=== PATIENT | female | born 1950 | race Caucasian/White ===

== ENCOUNTER → 2017-12-12 07:40 | Outpatient (CLI) | payer MEDICARE, SELFPAY ==
[2017-12-12 10:40] LABS: Absolute Lymphocyte Count 1.24 X10^3/ul (0.83-4.51); Absolute Neutrophil Count 2.3 X10^3/uL (2.0-7.7); Basophil# 0.01 X10^3/uL; Basophil% 0.2 % (0-1); Eosinophil# 0.15 X10^3/uL; Eosinophils% 3.5 % (0-5); Hemoglobin 13.4 g/dl (12.0-15.0); Lymphocyte # 1.24 X10^3/ul (4.0); Lymphocyte % 28.8 % (19-41); Mean Corp Hgb Conc 33.5 g/gl (32-36); Mean Corpuscular Hgb 30.2 pg (27.0-32.0); Mean Corpuscular Volume 90.1 fL (81-99); Mean Platelet Vol. 10.1 fl (6.2-12.0); Monocyte# 0.57 X10^3/uL; Monocyte% 13.3 % (0-10); Neutrophil # 2.33 X10^3/uL (2.7-7.7); Neutrophil % 54.2 % (47-70); Platelet Count 206 K/mm3 (150-450); RBC Distribution Width CV 12.7 % (11.6-14.6); RBC Distribution Width SD 41.6 fl (35.1-43.9); Red Blood Count 4.44 M/mm3 (4.2-5.4); White Blood Count 4.3 K/mm3 (4.4-11.0)
[2017-12-12 10:52] LABS: ALB/GLOB Ratio 1.2 RATIO (0.9-2.4); AST(SGOT) 22 U/L (15-37); Alanine Aminotransfer ALT/SGPT 30 U/L (13-56); Albumin, Serum 3.9 g/dL (3.2-5.0); Alkaline Phosphatase 99 U/L (45-117); Anion Gap 3 (5-15); BUN 14 mg/dL (7-18); BUN/Creat Ratio 19.6 RATIO (10-20); Calcium,Total 8.4 mg/dL (8.5-10.1); Chloride 107 mmol/L (98-107); Creatinine, Serum 0.72 mg/dL (0.55-1.02); EST Glomerular Filtration Rate 87 mL/min (>60); Est Glom Filt Rate - Afr Amer 105 mL/min (>60); Globulin 3.3 g/dL (2.2-4.2); Glucose 81 mg/dL (74-106); Potassium 4.1 mmol/L (3.5-5.1); Protein, Total 7.2 g/dL (6.4-8.2); Sodium Level 142 mmol/L (136-145)
[2017-12-12 10:54] LABS: POSITIVE COUNT NO; POSITIVE DIFFERENTIAL NO; POSITIVE MORPHOLOGY NO
== END ==
PROVIDERS: Family Provider Nurse Practitioner Family; PCP Nurse Practitioner Family; Visit Provider Internal Medicine Rheumatology
DX: M06.4 Inflammatory polyarthropathy (principal); I10 Essential (primary) hypertension; I34.1 Nonrheumatic mitral (valve) prolapse; E78.5 Hyperlipidemia, unspecified; K44.9 Diaphragmatic hernia without obstruction or gangrene
CPT/HCPCS: 36415; 80053; 85025

== ENCOUNTER → 2018-03-13 10:32 | Outpatient (CLI) | payer MEDICARE, SELFPAY ==
--- NOTE | 2018-03-13 10:32 | DT_ITS ---
This patient was seen during an EMR downtime March 13, 2018 - March 20, 2018. This patient may have a combination of paper and electronic documentation or all paper documentation. All documentation is viewable within the e-chart portion of [facility] for each patient visit.
[2018-03-17 22:22] LABS: Hematocrit 37.9 % (37-47); Hemoglobin 12.6 g/dl (12.0-15.0); Mean Corp Hgb Conc 33.2 g/gl (32-36); Mean Corpuscular Hgb 30.2 pg (27.0-32.0); Mean Corpuscular Volume 90.9 fL (81-99); Mean Platelet Vol. 10.3 fl (6.2-12.0); POSITIVE COUNT NO; POSITIVE DIFFERENTIAL NO; POSITIVE MORPHOLOGY NO; Platelet Count 205 K/mm3 (150-450); RBC Distribution Width CV 12.9 % (11.6-14.6); RBC Distribution Width SD 41.4 fl (35.1-43.9); Red Blood Count 4.17 M/mm3 (4.2-5.4); White Blood Count 4.6 K/mm3 (4.4-11.0)
[2018-03-17 22:23] LABS: Absolute Lymphocyte Count 1.39 X10^3/ul (0.83-4.51); Absolute Neutrophil Count 2.7 X10^3/uL (2.0-7.7); Basophil# 0.01 X10^3/uL; Basophil% 0.2 % (0-1); Eosinophil# 0.11 X10^3/uL; Eosinophils% 2.4 % (0-5); Lymphocyte # 1.39 X10^3/ul (4.0); Lymphocyte % 30.3 % (19-41); Monocyte# 0.38 X10^3/uL; Monocyte% 8.3 % (0-10); Neutrophil # 2.69 X10^3/uL (2.7-7.7); Neutrophil % 58.6 % (47-70)
[2018-03-17 22:32] LABS: BUN 14 mg/dL (7-18); BUN/Creat Ratio 18.7 RATIO (10-20); Creatinine, Serum 0.75 mg/dL (0.55-1.02); EST Glomerular Filtration Rate 82 mL/min (>60); Est Glom Filt Rate - Afr Amer 99 mL/min (>60); Glucose 113 mg/dL (74-106)
[2018-03-17 22:33] LABS: ALB/GLOB Ratio 1.2 RATIO (0.9-2.4); AST(SGOT) 19 U/L (15-37); Alanine Aminotransfer ALT/SGPT 31 U/L (13-56); Albumin, Serum 3.8 g/dL (3.2-5.0); Alkaline Phosphatase 94 U/L (45-117); Anion Gap 6 (5-15); Calcium,Total 8.4 mg/dL (8.5-10.1); Chloride 107 mmol/L (98-107); Globulin 3.2 g/dL (2.2-4.2); Potassium 4.2 mmol/L (3.5-5.1); Sodium Level 142 mmol/L (136-145)
== END ==
PROVIDERS: Family Provider Nurse Practitioner Family; PCP Nurse Practitioner Family; Visit Provider Internal Medicine Rheumatology
DX: M06.4 Inflammatory polyarthropathy (principal); Z79.899 Other long term (current) drug therapy; I10 Essential (primary) hypertension; I34.1 Nonrheumatic mitral (valve) prolapse; E78.5 Hyperlipidemia, unspecified; K44.9 Diaphragmatic hernia without obstruction or gangrene
CPT/HCPCS: 36415; 80053; 85025

== ENCOUNTER → 2018-06-13 10:43 | Outpatient (CLI) | payer MEDICARE, SELFPAY ==
[2018-06-13 12:45] LABS: AST(SGOT) 40 U/L (15-37); Alanine Aminotransfer ALT/SGPT 58 U/L (13-56); Albumin, Serum 3.7 g/dL (3.2-5.0); Alkaline Phosphatase 99 U/L (45-117); Anion Gap 8 (5-15); BUN 18 mg/dL (7-18); Calcium,Total 8.9 mg/dL (8.5-10.1); Chloride 103 mmol/L (98-107); Creatinine, Serum 0.86 mg/dL (0.55-1.02); EST Glomerular Filtration Rate 70 mL/min (>60); Est Glom Filt Rate - Afr Amer 85 mL/min (>60); Globulin 3.6 g/dL (2.2-4.2); Glucose 93 mg/dL (74-106); Potassium 4.5 mmol/L (3.5-5.1); Protein, Total 7.3 g/dL (6.4-8.2); Sodium Level 141 mmol/L (136-145)
[2018-06-13 15:41] LABS: Absolute Lymphocyte Count 1.31 X10^3/ul (0.83-4.51); Absolute Neutrophil Count 2.2 X10^3/uL (2.0-7.7); Basophil# 0.01 X10^3/uL; Basophil% 0.2 % (0-1); Eosinophil# 0.11 X10^3/uL; Eosinophils% 2.6 % (0-5); Hemoglobin 13.4 g/dl (12.0-15.0); Lymphocyte # 1.31 X10^3/ul (4.0); Lymphocyte % 31.5 % (19-41); Mean Corp Hgb Conc 33.5 g/gl (32-36); Mean Corpuscular Volume 89.5 fL (81-99); Mean Platelet Vol. 10.1 fl (6.2-12.0); Monocyte# 0.55 X10^3/uL; Monocyte% 13.2 % (0-10); Neutrophil # 2.17 X10^3/uL (2.7-7.7); Neutrophil % 52.3 % (47-70); POSITIVE COUNT NO; POSITIVE DIFFERENTIAL NO; POSITIVE MORPHOLOGY NO; Platelet Count 199 K/mm3 (150-450); Red Blood Count 4.47 M/mm3 (4.2-5.4); White Blood Count 4.2 K/mm3 (4.4-11.0)
== END ==
PROVIDERS: Family Provider Nurse Practitioner Family; PCP Nurse Practitioner Family; Visit Provider Internal Medicine Rheumatology
DX: M06.4 Inflammatory polyarthropathy (principal); Z79.899 Other long term (current) drug therapy; I10 Essential (primary) hypertension; I34.1 Nonrheumatic mitral (valve) prolapse; E78.5 Hyperlipidemia, unspecified; K44.9 Diaphragmatic hernia without obstruction or gangrene
CPT/HCPCS: 36415; 80053; 85025

== ENCOUNTER → 2018-08-01 09:25 | Outpatient (CLI) | payer MEDICARE, SELFPAY ==
[2018-08-01 12:07] LABS: Absolute Lymphocyte Count 1.49 X10^3/ul (0.83-4.51); Absolute Neutrophil Count 2.9 X10^3/uL (2.0-7.7); Basophil# 0.02 X10^3/uL; Basophil% 0.4 % (0-1); Eosinophil# 0.17 X10^3/uL; Eosinophils% 3.2 % (0-5); Hematocrit 43.6 % (37-47); Hemoglobin 14.2 g/dl (12.0-15.0); Lymphocyte # 1.49 X10^3/ul (4.0); Lymphocyte % 28.1 % (19-41); Mean Corp Hgb Conc 32.6 g/gl (32-36); Mean Corpuscular Hgb 29.5 pg (27.0-32.0); Mean Corpuscular Volume 90.5 fL (81-99); Mean Platelet Vol. 9.8 fl (6.2-12.0); Monocyte# 0.71 X10^3/uL; Monocyte% 13.4 % (0-10); Neutrophil % 54.7 % (47-70); POSITIVE COUNT NO; POSITIVE DIFFERENTIAL NO; POSITIVE MORPHOLOGY NO; Platelet Count 228 K/mm3 (150-450); RBC Distribution Width CV 12.9 % (11.6-14.6); RBC Distribution Width SD 42.5 fl (35.1-43.9); Red Blood Count 4.82 M/mm3 (4.2-5.4); White Blood Count 5.3 K/mm3 (4.4-11.0)
[2018-08-01 12:22] LABS: ALB/GLOB Ratio 1.1 RATIO (0.9-2.4); AST(SGOT) 20 U/L (15-37); Alanine Aminotransfer ALT/SGPT 32 U/L (13-56); Albumin, Serum 3.8 g/dL (3.2-5.0); Alkaline Phosphatase 99 U/L (45-117); Anion Gap 6 (5-15); BUN 19 mg/dL (7-18); BUN/Creat Ratio 22.1 RATIO (10-20); Calcium,Total 9.1 mg/dL (8.5-10.1); Chloride 103 mmol/L (98-107); Creatinine, Serum 0.86 mg/dL (0.55-1.02); EST Glomerular Filtration Rate 70 mL/min (>60); Est Glom Filt Rate - Afr Amer 84 mL/min (>60); Globulin 3.5 g/dL (2.2-4.2); Glucose 95 mg/dL (74-106); Potassium 4.5 mmol/L (3.5-5.1); Protein, Total 7.3 g/dL (6.4-8.2); Sodium Level 141 mmol/L (136-145)
== END ==
PROVIDERS: Family Provider Nurse Practitioner Family; PCP Nurse Practitioner Family; Referring Provider Internal Medicine Rheumatology; Visit Provider Internal Medicine Rheumatology
DX: M06.4 Inflammatory polyarthropathy (principal); Z79.899 Other long term (current) drug therapy; I10 Essential (primary) hypertension; I34.1 Nonrheumatic mitral (valve) prolapse; E78.5 Hyperlipidemia, unspecified; K44.9 Diaphragmatic hernia without obstruction or gangrene
CPT/HCPCS: 36415; 80053; 85025

== ENCOUNTER → 2018-10-26 10:23 | Outpatient (CLI) | payer MEDICARE, SELFPAY ==
[2018-04-11 13:36] VITALS: BMI 23.1
[2018-10-26 12:20] LABS: Absolute Lymphocyte Count 1.61 X10^3/ul (0.83-4.51); Basophil# 0.02 X10^3/uL; Basophil% 0.4 % (0-1); Eosinophil# 0.15 X10^3/uL; Eosinophils% 2.8 % (0-5); Hematocrit 40.5 % (37-47); Hemoglobin 13.5 g/dl (12.0-15.0); Lymphocyte # 1.61 X10^3/ul (4.0); Lymphocyte % 30.4 % (19-41); Mean Corp Hgb Conc 33.3 g/gl (32-36); Mean Corpuscular Hgb 29.7 pg (27.0-32.0); Mean Corpuscular Volume 89.2 fL (81-99); Mean Platelet Vol. 10.2 fl (6.2-12.0); Monocyte# 0.47 X10^3/uL; Monocyte% 8.9 % (0-10); Neutrophil # 3.03 X10^3/uL (2.7-7.7); Neutrophil % 57.3 % (47-70); Platelet Count 202 K/mm3 (150-450); RBC Distribution Width CV 13.1 % (11.6-14.6); RBC Distribution Width SD 42.3 fl (35.1-43.9); Red Blood Count 4.54 M/mm3 (4.2-5.4); White Blood Count 5.3 K/mm3 (4.4-11.0)
[2018-10-26 12:24] LABS: POSITIVE COUNT NO; POSITIVE DIFFERENTIAL NO; POSITIVE MORPHOLOGY NO
[2018-10-26 12:41] LABS: ALB/GLOB Ratio 1.2 RATIO (0.9-2.4); AST(SGOT) 90 U/L (15-37); Alanine Aminotransfer ALT/SGPT 134 U/L (13-56); Alkaline Phosphatase 90 U/L (45-117); Anion Gap 6 (5-15); BUN 19 mg/dL (7-18); BUN/Creat Ratio 23.3 RATIO (10-20); Calcium,Total 8.8 mg/dL (8.5-10.1); Chloride 104 mmol/L (98-107); Creatinine, Serum 0.82 mg/dL (0.55-1.02); EST Glomerular Filtration Rate 74 mL/min (>60); Est Glom Filt Rate - Afr Amer 90 mL/min (>60); Globulin 3.3 g/dL (2.2-4.2); Glucose 97 mg/dL (74-106); Potassium 4.3 mmol/L (3.5-5.1); Protein, Total 7.3 g/dL (6.4-8.2); Sodium Level 139 mmol/L (136-145)
--- OUTSIDE RECORDS SUMMARY | 2018-12-31 01:05 | XMS RPT_ITS ---
:1950 Author Organization OHIP Support Name Relationship Address Phone FARIHA WOO Unavailable [address] + [place] [address] TREVOR AMANDA Unavailable Unavailable + R Unavailable Unavailable Unavailable AMNAFARIHA Unavailable [address] + [place] [address] AMNA FARIHA Unavailable [address] + [place] [address] FARIHA WOO Unavailable [address] + [place] [address] TREVOR AMANDA Unavailable Unavailable + R Unavailable Unavailable Unavailable FARIHA WOO Unavailable [address] + [place] [address] TREVOR AMANDA Unavailable Unavailable + R Unavailable Unavailable Unavailable AMNA FARIHA Unavailable [address] + [place] [address] FARIHA WOO Unavailable [address] + [place] [address] FARIHA WOO Unavailable [address] + [place] [address] FARIHA WOO Unavailable [address] + [place] [address] FARIHA WOO Unavailable [address] + [place] [address] TREVOR AMANDA Unavailable Unavailable + R Unavailable Unavailable Unavailable FARIHA WOO Unavailable [address] + [place] [address] TREVOR AMANDA Unavailable Unavailable + R Unavailable Unavailable Unavailable FARIHA WOO Unavailable [address] + [place] [address] R Unavailable Unavailable Unavailable FARIHA WOO Unavailable [address] + [place] [address] FARIHA WOO Unavailable [address] + [place] [address] Care Team Providers Name Role Phone PRAVIN MOORE CNP Attending Unavailable PRAVIN MOORE CNP Primary Care Unavailable PRAVIN MOORE CNP Attending Unavailable PRAVIN MOORE CNP Primary Care Unavailable PRAVIN MOORE CNP Attending Unavailable PRAVIN MOORE CNP Primary Care Unavailable BARBARA FAIR Attending Unavailable PRAVIN MOORE CNP Primary Care Unavailable JUNIOR, KARMON Referring Unavailable JUNIOR, KARMON Attending Unavailable JUNIOR, KARMON Referring Unavailable PRAVIN MCDONALD Attending Unavailable PRAVIN MCDONALD Admitting Unavailable PRAVIN MCDONALD Attending Unavailable PRAVIN MOORE Referring Unavailable PRAVIN MCDONALD Attending Unavailable PRAVIN MOORE Referring Unavailable JUNIOR, KARMARTÍN Attending Unavailable TYRONE SALDANA Attending Unavailable JUNIOR, KARMON Referring Unavailable Velrosaline, Alicia Attending Unavailable Maranda, Alicia Referring Unavailable Pravin Moore ASSISTANT BASEBALL COACH-C Primary Care Unavailable Vellanki, Alicia Attending Unavailable Maranda, Alicia Referring Unavailable Pravin Moore ASSISTANT BASEBALL COACH-C Primary Care Unavailable Maranda, Alicia Attending Unavailable Pravin Moore ASSISTANT BASEBALL COACH-C Primary Care Unavailable Rosendo Alvarado Attending Unavailable Pravin Moore ASSISTANT BASEBALL COACH-C Referring Unavailable Pravin Moore ASSISTANT BASEBALL COACH-C Primary Care Unavailable Vellanki, Alicia Attending Unavailable Maranda, Alicia Referring Unavailable Pravin Moore ASSISTANT BASEBALL COACH-C Primary Care Unavailable Vellanki, Alicia Attending Unavailable Maranda, Alicia Referring Unavailable Pravin Moore ASSISTANT BASEBALL COACH-C Primary Care Unavailable PROBLEMS PROBLEMS DATE TYPE CONDITION / CODE ATTENDING STATUS SOURCE Unknown M06.4 - Inflammatory Vellanki, 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 Repository Unknown E78.00 - [place], [place] Active [facility] hypercholesterolemia, Community unspecified / Hospital E78.00(ICD-10) Repository Unknown E78.0 - Pure Jenny, Rosendo Active [facility] hypercholesterolemia / Community E78.0(ICD-10) Hospital Repository Active Dysphagia, unspecified / TAMARA, Active [facility] R13.10(ICD-10) PRAVIN T [facility] Main [place] Repository Active Encounter for screening NA Active [facility] for osteoporosis / Clinic Main Z13.820(ICD-10) [place] Repository Active Encounter for screening NA Active [facility] mammogram for malignant [facility] Main neoplasm of breast / [place] Z12.31(ICD-10) Repository Admitting Vitamin D deficiency, OSCAR VALVE INSPECTOR, Active [facility] 8 Diagnosis unspecified / [facility] E55.9(ICD-10) Repository Admitting Essential (primary) OSCAR VALVE INSPECTOR, Active [facility] 8 Diagnosis hypertension / [facility] D[facility] I10(ICD-10) Repository Admitting Hyperlipidemia, OSCAR VALVE INSPECTOR, Active [facility] 8 Diagnosis unspecified / [facility] E78.5(ICD-10) Repository Admitting Nontoxic goiter, OSCAR VALVE INSPECTOR, Active [place] [address] Diagnosis unspecified / PRAVIN [facility] E04.9(ICD-10) Repository PROCEDURES PROCEDURES No Procedure Records FoundRESULTS RESULTS CBC W/DIFF, AUTOMATED Collected: 10/26/2018 Status: F Source: [facility] 10:31 AM [facility] REPOSITORY TYPE CODE TESTS RESULT OUT OF RANGE REFERENCE UNITS LAB L100.1000 4.4-11.0 K/mm3 Normal WBC 5.3 LAB L100.1200 4.2-5.4 M/mm3 Normal RBC 4.54 LAB L100.1300 12.0-15.0 g/dl Normal HGB 13.5 LAB L100.1400 37-47 % Normal HCT 40.5 LAB L100.1500 81-99 fL Normal MCV 89.2 LAB L100.1600 27.0-32.0 pg Normal MCH 29.7 LAB L100.1700 32-36 g/gl Normal MCHC 33.3 LAB L100.1810 11.6-14.6 % Normal RDW CV 13.1 LAB L100.1820 35.1-43.9 fl Normal RDW SD 42.3 LAB L100.1900 150-450 K/mm3 Normal PLT 202 LAB L100.2000 6.2-12.0 fl Normal MPV 10.2 LAB L100.2100 47-70 % Normal NEUT% 57.3 LAB L100.2200 19-41 % Normal LY% 30.4 LAB L100.2300 0-10 % Normal MONO% 8.9 LAB L100.2400 0-5 % Normal EO% 2.8 LAB L100.2500 0-1 % Normal BASO% 0.4 LAB L100.2550 0.0-0.9 % Normal IM GRAN % 0.200 Result Comment: IG% - Immature Granulocytes (promyelocytes, myelocytes and metamyelocytes) > 1% indicates that a LEFT SHIFT is Present. LAB L100.2620 2.0-7.7 X10 3/uL Normal Absolute Neut 3.0 LAB L100.2720 0.83-4.51 X10 3/ul Normal Absolute Lymph 1.61 Performed By: #### L100.0100 #### [facility] [address] [place], [address] COMPREHENSIVE METABOLIC Collected: 10/26/2018 Status: F Source: [facility] 10:31 AM [facility] REPOSITORY TYPE CODE TESTS RESULT OUT OF RANGE REFERENCE UNITS LAB L501.0100 74-106 mg/dL Normal GLU 97 Result Comment: Please note revised GLUCOSE reference range effective 2017. LAB L501.1000 7-18 mg/dL High BUN 19 LAB L501.1100 0.55-1.02 mg/dL Normal CREAT,SERUM 0.82 Result Comment: The validity of the calculated GFR AND GFRAA in patients over 70 years has not been determined. Clinical correlation is essential. LAB L501.1110 >60 mL/min Normal EST GFR 74 Result Comment: Non- GFR Calc LAB L501.1115 >60 mL/min Normal EST GFR - AA 90 Result Comment: GFR Calc LAB L501.1300 10-20 RATIO High BUN/CRE 23.3 LAB L501.1500 6.4-8.2 g/dL T Normal PROT 7.3 LAB L501.1800 3.2-5.0 g/dL Normal ALB 4.0 LAB L501.1950 2.2-4.2 g/dL Normal GLOB 3.3 LAB L501.2000 0.9-2.4 RATIO Normal A/G 1.2 LAB L501.2200 8.5-10.1 mg/dL CA Normal 8.8 LAB L501.4100 15-37 U/L High AST 90 LAB L501.4305 45-117 U/L Normal ALK P 90 LAB L501.4405 13-56 U/L High ALT 134 LAB L501.4600 0.20-1.00 mg/dL T Normal BILI 0.80 LAB L501.5300 136-145 mmol/L NA Normal 139 LAB L501.5600 3.5-5.1 mmol/L K Normal 4.3 LAB L501.5900 98-107 mmol/L CL Normal 104 LAB L501.6100 21.0-32.0 mmol/L Normal CO2 29.0 LAB L501.6200 5-15 Normal GAP 6 Performed By: #### L500.4050 #### [facility] [address] [place], [address] XR CHEST 2 VIEWS Observed: 10/09/2018 Status: F Source: [facility] 11:48 AM [facility] REPOSITORY ORIGINAL Chest 2 views HISTORY: Chest pain COMPARISON: None The heart is normal in size and there is no vascular congestion present. No consolidation, atelectasis or pleural fluid seen. Minor degenerative changes are noted in the spine. IMPRESSION: No acute process. Interpreted By: Edwin Llanes MD Preliminary Report By: Edwin Llanes MD Electronically Signed By: Edwin Llanes MD Dictated Date: 10/10/2018 2:53:32 AM Prelim Date: 10/10/2018 2:53:32 AM Sign Date: 10/10/2018 2:54:00 AM CBC W/DIFF, AUTOMATED Collected: 08/01/2018 Status: F Source: [facility] 9:43 AM [facility] REPOSITORY TYPE CODE TESTS RESULT OUT OF RANGE REFERENCE UNITS LAB L100.1000 4.4-11.0 K/mm3 Normal WBC 5.3 LAB L100.1200 4.2-5.4 M/mm3 Normal RBC 4.82 LAB L100.1300 12.0-15.0 g/dl Normal HGB 14.2 LAB L100.1400 37-47 % Normal HCT 43.6 LAB L100.1500 81-99 fL Normal MCV 90.5 LAB L100.1600 27.0-32.0 pg Normal MCH 29.5 LAB L100.1700 32-36 g/gl Normal MCHC 32.6 LAB L100.1810 11.6-14.6 % Normal RDW CV 12.9 LAB L100.1820 35.1-43.9 fl Normal RDW SD 42.5 LAB L100.1900 150-450 K/mm3 Normal PLT 228 LAB L100.2000 6.2-12.0 fl Normal MPV 9.8 LAB L100.2100 47-70 % Normal NEUT% 54.7 LAB L100.2200 19-41 % Normal LY% 28.1 LAB L100.2300 0-10 % High MONO% 13.4 LAB L100.2400 0-5 % Normal EO% 3.2 LAB L100.2500 0-1 % Normal BASO% 0.4 LAB L100.2550 0.0-0.9 % Normal IM GRAN % 0.200 Result Comment: IG% - Immature Granulocytes (promyelocytes, myelocytes and metamyelocytes) > 1% indicates that a LEFT SHIFT is Present. LAB L100.2620 2.0-7.7 X10 3/uL Normal Absolute Neut 2.9 LAB L100.2720 0.83-4.51 X10 3/ul Normal Absolute Lymph 1.49 Performed By: #### L100.0100 #### [facility] [place], [address] COMPREHENSIVE METABOLIC Collected: 08/01/2018 Status: F Source: [facility] 9:43 AM [facility] REPOSITORY TYPE CODE TESTS RESULT OUT OF RANGE REFERENCE UNITS LAB L501.0100 74-106 mg/dL Normal GLU 95 Result Comment: Please note revised GLUCOSE reference range effective 2017. LAB L501.1000 7-18 mg/dL High BUN 19 LAB L501.1100 0.55-1.02 mg/dL Normal CREAT,SERUM 0.86 Result Comment: The validity of the calculated GFR AND GFRAA in patients over 70 years has not been determined. Clinical correlation is essential. LAB L501.1110 >60 mL/min Normal EST GFR 70 Result Comment: Non- GFR Calc LAB L501.1115 >60 mL/min Normal EST GFR - AA 84 Result Comment: GFR Calc LAB L501.1300 10-20 RATIO High BUN/CRE 22.1 LAB L501.1500 6.4-8.2 g/dL T Normal PROT 7.3 LAB L501.1800 3.2-5.0 g/dL Normal ALB 3.8 LAB L501.1950 2.2-4.2 g/dL Normal GLOB 3.5 LAB L501.2000 0.9-2.4 RATIO Normal A/G 1.1 LAB L501.2200 8.5-10.1 mg/dL CA Normal 9.1 LAB L501.4100 15-37 U/L Normal AST 20 LAB L501.4305 45-117 U/L Normal ALK P 99 LAB L501.4405 13-56 U/L Normal ALT 32 LAB L501.4600 0.20-1.00 mg/dL T Normal BILI 0.50 LAB L501.5300 136-145 mmol/L NA Normal 141 LAB L501.5600 3.5-5.1 mmol/L K Normal 4.5 LAB L501.5900 98-107 mmol/L CL Normal 103 LAB L501.6100 21.0-32.0 mmol/L Normal CO2 32.0 LAB L501.6200 5-15 Normal GAP 6 Performed By: #### L500.4050 #### [facility] [place], [address] COMPREHENSIVE METABOLIC Collected: 06/13/2018 Status: F Source: [facility] 10:46 AM [facility] REPOSITORY TYPE CODE TESTS RESULT OUT OF RANGE REFERENCE UNITS LAB L501.0100 74-106 mg/dL Normal GLU 93 Result Comment: Please note revised GLUCOSE reference range effective 2017. LAB L501.1000 7-18 mg/dL Normal BUN 18 LAB L501.1100 0.55-1.02 mg/dL Normal CREAT,SERUM 0.86 Result Comment: The validity of the calculated GFR AND GFRAA in patients over 70 years has not been determined. Clinical correlation is essential. LAB L501.1110 >60 mL/min Normal EST GFR 70 Result Comment: Non- GFR Calc LAB L501.1115 >60 mL/min Normal EST GFR - AA 85 Result Comment: GFR Calc LAB L501.1300 10-20 RATIO High BUN/CRE 21.0 LAB L501.1500 6.4-8.2 g/dL T Normal PROT 7.3 LAB L501.1800 3.2-5.0 g/dL Normal ALB 3.7 LAB L501.1950 2.2-4.2 g/dL Normal GLOB 3.6 LAB L501.2000 0.9-2.4 RATIO Normal A/G 1.0 LAB L501.2200 8.5-10.1 mg/dL CA Normal 8.9 LAB L501.4100 15-37 U/L High AST 40 LAB L501.4305 45-117 U/L Normal ALK P 99 LAB L501.4405 13-56 U/L High ALT 58 LAB L501.4600 0.20-1.00 mg/dL T Normal BILI 0.60 LAB L501.5300 136-145 mmol/L NA Normal 141 LAB L501.5600 3.5-5.1 mmol/L K Normal 4.5 LAB L501.5900 98-107 mmol/L CL Normal 103 LAB L501.6100 21.0-32.0 mmol/L Normal CO2 30.0 LAB L501.6200 5-15 Normal GAP 8 Performed By: #### L500.4050 #### [facility] [address] [place], [address] CBC W/DIFF, AUTOMATED Collected: 06/13/2018 Status: F Source: [facility] 10:46 AM [facility] REPOSITORY TYPE CODE TESTS RESULT OUT OF RANGE REFERENCE UNITS LAB L100.1000 4.4-11.0 K/mm3 Low WBC 4.2 LAB L100.1200 4.2-5.4 M/mm3 Normal RBC 4.47 LAB L100.1300 12.0-15.0 g/dl Normal HGB 13.4 LAB L100.1400 37-47 % Normal HCT 40.0 LAB L100.1500 81-99 fL Normal MCV 89.5 LAB L100.1600 27.0-32.0 pg Normal MCH 30.0 LAB L100.1700 32-36 g/gl Normal MCHC 33.5 LAB L100.1810 11.6-14.6 % Normal RDW CV 13.0 LAB L100.1820 35.1-43.9 fl Normal RDW SD 42.0 LAB L100.1900 150-450 K/mm3 Normal PLT 199 LAB L100.2000 6.2-12.0 fl Normal MPV 10.1 LAB L100.2100 47-70 % Normal NEUT% 52.3 LAB L100.2200 19-41 % Normal LY% 31.5 LAB L100.2300 0-10 % High MONO% 13.2 LAB L100.2400 0-5 % Normal EO% 2.6 LAB L100.2500 0-1 % Normal BASO% 0.2 LAB L100.2550 0.0-0.9 % Normal IM GRAN % 0.200 Result Comment: IG% - Immature Granulocytes (promyelocytes, myelocytes and metamyelocytes) > 1% indicates that a LEFT SHIFT is Present. LAB L100.2620 2.0-7.7 X10 3/uL Normal Absolute Neut 2.2 LAB L100.2720 0.83-4.51 X10 3/ul Normal Absolute Lymph 1.31 Performed By: #### L100.0100 #### [facility] [place], [address] CBC Collected: 05/29/2018 Status: F Source: [facility] 8:20 AM [facility] REPOSITORY TYPE CODE TESTS RESULT OUT OF REFERENCE UNITS RANGE LAB WBC(LOINC) 4.60-10.80 10 3/mcL WBC 9.60 LAB RBCCT(LOINC 4.20-5.40 10 6/mcL ) RBC 4.64 LAB HGB(LOINC) 12.0-16.0 G/dL Hgb 14.4 LAB HCT(LOINC) 37.0-47.0 % Hct 41.3 LAB MCV(LOINC) 80.0-94.0 fL MCV 89.1 LAB MCH(LOINC) 27.0-31.2 pg MCH 31.0 LAB MCHC(LOINC) 33.0-37.0 G/dL MCHC 34.7 LAB RDW(LOINC) 11.5-14.5 % RDW 14.5 LAB PLT(LOINC) 130-400 10 3/mcL Platelet 252 LAB MPV(LOINC) 7.4-10.4 fL MPV 8.2 Performed By: #### CBC, ADIFF, ANEU #### [address] [address] #### LIPID, CMP, GFR, VIDH #### [address] [id number] .AUTO DIFF Collected: 05/29/2018 Status: F Source: [facility] 8:20 AM [facility] REPOSITORY TYPE CODE TESTS RESULT OUT OF REFERENCE UNITS RANGE LAB URIEL(LOINC) 37.0-80.0 % Neutrophil % 78.1 LAB LYM(LOINC) 10.0-50.0 % Lymphocyte % 14.9 LAB MON(LOINC) 1.7-13.0 % Monocyte % 6.4 LAB EO(LOINC) 0.0-7.0 % Eosinophil % 0.2 LAB BAS(LOINC) 0.0-2.5 % Basophil % 0.4 LAB ABLYM(LOIN 0.77-3.85 10 3/mcL C) Lymphocyte, 1.40 Absolute LAB MELISSA(LOINC 0.15-1.00 10 3/mcL ) Monocyte, 0.60 Absolute LAB AEOS(LOINC 0.00-0.40 10 3/mcL ) Eosinophil, 0.00 Absolute LAB ABAS(LOINC 0.00-0.19 10 3/mcL ) Basophil, 0.00 Absolute Performed By: #### CBC, ADIFF, ANEU #### [address] [address] #### LIPID, CMP, GFR, VIDH #### [address] [id number] .NEUABS Collected: 05/29/2018 Status: F Source: [facility] 8:20 AM [facility] REPOSITORY TYPE CODE TESTS RESULT OUT OF REFERENCE UNITS RANGE LAB ANEU(LOINC) 2.85-6.16 10 3/mcL High Neutrophil, 7.50 Absolute Performed By: #### CBC, ADIFF, ANEU #### [place] [address] #### LIPID, CMP, GFR, VIDH #### [place] [id number] LIPID Collected: 05/29/2018 Status: F Source: [facility] 8:20 AM [facility] REPOSITORY TYPE CODE TESTS RESULT OUT OF REFERENCE UNITS RANGE LAB CHOL(LOINC 0-200 mg/dL ) Cholesterol High 212 Result Comment: Cholesterol Reference Interval: Less than 200 Desirable 200-239 Borderline high risk 240 and above High risk LAB TRIG(LOINC) 0-150 mg/dL Triglycerides 104 Result Comment: Triglyceride Reference Interval: Less than 150 Normal 150-199 Borderline high risk 200-499 High risk 500 or higher Very high risk LAB HD(LOINC) 40-60 mg/dL HDL High Cholesterol 70 LAB LDL(LOINC) 0-130 mg/dL LDL Cholesterol 121 Performed By: #### CBC, ADIFF, ANEU #### [place] [id number] #### LIPID, CMP, GFR, VIDH #### [place] [id number] CMP Collected: 05/29/2018 Status: F Source: [facility] 8:20 AM [facility] REPOSITORY TYPE CODE TESTS RESULT OUT OF REFERENCE UNITS RANGE LAB GLU(LOINC) 80-115 mg/dL Glucose Level 102 LAB NA(LOINC) 136-145 mmol/L Sodium Level 141 LAB K(LOINC) 3.5-5.1 mmol/L Potassium Level 4.1 LAB CL(LOINC) 98-107 mmol/L Chloride 102 LAB CO2(LOINC) 23-31 mmol/L CO2 31 LAB EBAL(LOINC mEq/L ) Electrolyte Balance 8.0 LAB BUN(LOINC) 7-18 mg/dL BUN High 20 LAB CRE(LOINC) 0.55-1.02 mg/dL Creatinine Lvl (s) 0.85 LAB BC(LOINC) 7-27 ratio BUN/Creatinine 24 Ratio LAB CA(LOINC) 8.4-10.2 mg/dL Calcium Lvl 9.7 LAB PROT(LOINC 6.4-8.2 G/dL ) Total Protein 7.4 LAB ALB(LOINC) 3.4-4.8 G/dL Albumin Level 4.3 LAB GLB(LOINC) G/dL Globulin 3.1 LAB AG(LOINC) 1.1-2.5 ratio A/G Ratio 1.4 LAB BILT(LOINC 0.2-1.0 mg/dL ) Bili Total 0.5 LAB AP(LOINC) 40-135 U/L Alk Phos 98 LAB AST(LOINC) 10-40 U/L AST/SGOT 14 LAB ALT(LOINC) 10-35 U/L ALT/SGPT High 47 Performed By: #### CBC, ADIFF, ANEU #### [address] [address] #### LIPID, CMP, GFR, VIDH #### [address] [address] .GFR Collected: 05/29/2018 Status: F Source: [facility] 8:20 AM [facility] TYPE CODE TESTS RESULT OUT OF REFERENCE UNITS RANGE LAB GFRAA(LOINC ml/min/1.73 ) sqm GFR 81 Dominican Result Comment: GFR Population mean for , Non- Americans Ages 20-29 = 116 mL/min/1.73 sq.m. Ages 30-39 = 107 mL/min/1.73 sq.m. Ages 40-49 = 99 mL/min/1.73 sq.m. Ages 50-59 = 93 mL/min/1.73 sq.m. Ages 60-69 = 85 mL/min/1.73 sq.m. Ages 70+ = 75 mL/min/1.73 sq.m. Chronic Kidney Disease: Less than 60 mL/min/1.73 square meters End Stage Renal Disease: Less than 15 mL/min/1.73 square meters LAB GFRNO(LOINC) ml/min/1.73sqm GFR Non- 67 Result Comment: GFR Population mean for , Non- Americans Ages 20-29 = 116 mL/min/1.73 sq.m. Ages 30-39 = 107 mL/min/1.73 sq.m. Ages 40-49 = 99 mL/min/1.73 sq.m. Ages 50-59 = 93 mL/min/1.73 sq.m. Ages 60-69 = 85 mL/min/1.73 sq.m. Ages 70+ = 75 mL/min/1.73 sq.m. Chronic Kidney Disease: Less than 60 mL/min/1.73 square meters End Stage Renal Disease: Less than 15 mL/min/1.73 square meters Performed By: #### CBC, ADIFF, ANEU #### [address] [address] #### LIPID, CMP, GFR, VIDH #### [address] [address] VIDH Collected: 05/29/2018 Status: F Source: [facility] 8:20 AM [facility] REPOSIT[facility] TYPE CODE TESTS RESULT OUT OF RANGE REFERENCE UNITS LAB VIDH(LOINC) ng/mL Vit. D 52 25-Hydroxy Result Comment: Interpretive Values Based on Total 25(OH)D: Severe Deficiency <20 ng/mL Mild to Moderate Deficiency 20-30 ng/mL Optimum Levels 30-100 ng/mL Toxicity Possible >100 ng/mL Performed By: #### CBC, ADIFF, ANEU #### [address] [address] #### LIPID, CMP, GFR, VIDH #### [address] [id number] Observed: 05/23/2018 Status: F Source: [facility] 8:45 AM [facility] REPOSITORY . MICRO - Microbiology PROCEDURE: Urine Culture [*1] SOURCE: Urine BODY SITE: COLLECTED DATE/TIME: 05/23/2018 08:45 EDT RECEIVED DATE/TIME: 05/24/2018 15:34 EDT START DATE/TIME: 05/24/2018 15:34 EDT FREE TEXT SOURCE: FINAL REPORTS Final Report [] Verified Date/Time/Personnel: 05/26/2018 07:32 EDT 3,000 organisms per mL Mixed without predominant isolate(s). Sensitivity Testing not indicated. Probably contamination. Repeat culture suggested. PRELIMINARY REPORTS Preliminary Report [] Verified Date/Time/Personnel: 05/25/2018 09:38 EDT No growth to date Performing Locations *1: This test was performed at: [facility], [address] [place] [address], [facility] , [facility] Performed By: #### CUR #### [place] [address] CARDIOLOGY VISIT Observed: 04/11/2018 Status: F Source: [facility] REPORT 1:54 PM [facility] REPOSITORY [facility] [address] [place], [place] [address] OFFICE VISIT Date of Service: 04/11/18 MR#: [id number] Acct: [id number] Name: KIMBER WOO Rep #: [id number] : 1950 Provider: Rosendo Alvarado MD Age/Sex: 67/F Location: [facility] Status: Signed [facility] HPI Chief Complaint: Follow up visit Details: KIMBER WOO, is a 67 F who presents to the office today for a follow-up visit. She is a lady with a history of palpitations hypertension which is been well controlled and essentially normal coronary arteries. She says that that she reduce the amount of caffeinated beverages that she was consuming her palpitations have largely improved she is denies any chest pain or shortness breath or paroxysmal nocturnal dyspnea pedal edema she has had no neck arm or jaw discomfort suggest angina. She has been compliant with all her medications. Her physical exam today demonstrates clear lung suarez regular rate and rhythm and no pedal edema. 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 Required: No Accompanied by: none Is patient in pain?: No Allergies azithromycin Adverse Reaction (Verified 04/11/18 13:37) Unknown iodine Adverse Reaction (Verified 04/11/18 13:37) Unknown latex Adverse Reaction (Verified 04/11/18 13:37) Unknown Medications calcium carbonate 600 mg calcium (1,500 mg) tablet 1,200 mg PO QDAY tab 02/09/18 [History Confirmed 04/11/18] lisinopril 10 mg tablet 10 mg PO QDAY #90 tab 02/09/18 [Rx Confirmed 04/11/18] atorvastatin 10 mg tablet 10 mg PO QDAY 04/11/18 [History Confirmed 04/11/18] biotin 10,000 mcg disintegrating tablet 10,000 mcg PO QDAY 04/11/18 [History Confirmed 04/11/18] ergocalciferol (vitamin D2) 50,000 unit capsule 50,000 unit PO QWEEK 04/11/18 [History Confirmed 04/11/18] methotrexate sodium 2.5 mg tablet 2.5 mg PO QWEEK tab 04/11/18 [History Confirmed 04/11/18] multivitamin tablet 1 tab PO QAM 04/11/18 [History Confirmed 04/11/18] omeprazole 40 mg capsule,delayed release 40 mg PO QDAY 04/11/18 [History Confirmed 04/11/18] Ejection fraction %: 60 to 64 [facility] Medical History Nonrheumatic tricuspid valve regurgitation (Chronic) Non-rheumatic mitral regurgitation (Chronic) Hyperlipidemia (Chronic) Hypertension (Chronic) Surgical History History of kidney surgery (Chronic) History of left heart catheterization (Chronic 05/20/08) Family History Father CAD (coronary artery disease) Myocardial infarction Social History Smoking Status: Never smoker ROS Const Const: Negative for fatigue, weakness, night sweats, excessive sweating, frequent falls, headache(s) or daytime sleepiness Eyes Eyes: Negative for loss of peripheral vision, transient loss of vision, blind spots, double vision or blurry vision ENT ENT: Negative for headache(s), dizziness, balance problems, Nosebleed/epistaxis, tongue swelling or lip swelling Cardio Chest Pain: No Palpitations: No Edema: None Muscle aches with walking: None Resp Respiratory: Negative for SOB at rest, SOB orthopnea\SOB lying down, Cough, paroxysmal nocturnal dyspnea or SOB with activity GI GI: Negative nausea, vomiting, heartburn, black,tarry stools or bright, red blood in stools : Negative for hematuria Musc Musc: Positive for joint pain; negative for balance problems, muscle aches/ myalgia or muscle weakness Skin Skin: Negative non-healing lesions, unusual bruising or rash Neuro Neuro: Negative for weakness, frequent falls, headache(s), double vision, dizziness, lightheadedness, orthostatic symptoms, blurry vision or lack of coordination [place] Hematologic/Lymphatic: Negative for easy bruising or easy bleeding Endo Endo: Negative for fatigue, excessive sweating, cold intolerance, heat intolerance, increased thirst/drinking or hair loss Psych Psych: Negative for anxiety or depression Allergy Allergy/Immunology: Negative for throat swelling, Negative for tongue swelling, Negative for hives, Negative for rash, Negative for lip swelling Cardiology Exam Const Appearance: cooperative, healthy appearing, well developed, well groomed and no acute distress Nutritional Appearance: well nourished and average body habitus Orientation: alert, awake and oriented x3 Head Head: normal to inspection, normocephalic and atraumatic Ears: hearing grossly normal bilaterally and external ears normal Nose: external nose normal, nasal mucous membranes and turbinates normal, nares normal, septum normal, no nasal discharge Face and Sinus: face symmetric Mouth: oral mucosae normal, tongue normal, oropharynx normal and moist mucous membranes Teeth and gingiva: dentition normal Throat: posterior oropharynx normal, tonsils normal and uvula midline Eyes General: appearance normal, both eyes and all related structures Eyelids: eyelids normal Conjunctivae: conjunctivae normal Pupils: PERRL, normal by confrontation and accommodation normal EOM: EOM intact bilaterally Neck Neck: normal visual inspection, trachea midline and no JVD JVD: +5 Carotids: normal carotid upstroke and bounding pulses Chest Chest inspection: normal inspection of the chest, symmetric chest movement and normal respiratory effort Auscultation: Bilateral: Clear to Auscultation Cardio Palpation: normal PMI Rate: regular rate Rhythm: regular rhythm Heart sounds: S1 normal, S2 normal and normal, physiologic split S2; negative rub, gallop or murmur GI GI: normal to inspection, soft, no hepatosplenomegaly and bowel sounds present Neuro General: alert, awake, oriented x3, no focal sensory deficit, gait normal and moves all extremities Skin Skin: no rashes or lesions noted Extremities Pulses: Normal: Right Femoral Pulse, Left Femoral Pulse, Right Dorsalis Pedis Pulse, Left Dorsalis Pedis Pulse, Right Posterior Tibial Pulse, Left Posterior Tibial Pulse, Right Radial Pulse, Left Radial Pulse Lower Extremity Edema: None: Bilateral Musculoskel Musculoskeletal: No joint tenderness Psych Psychological: normal affect Assessment AND Plan 1. Essential hypertension I10 Plan Her blood pressure appears to be under good control she is on the low-dose of lisinopril and my recommendation at this time will be for her to continue the same without making any changes. She tells me that she is also developed rheumatoid arthritis and is on methotrexate 2.5 mg once a week. 2. Pure hypercholesterolemia E78.00; E78.0 Plan She is on a low intensity statin. She will continue to monitor her lipid profile as well as liver enzymes. From my standpoint I would not suggest that we make any changes and I will like to see her on an as-needed basis. Thank you for allowing me to participate in the care of your patient. Please don't hesitate to call if any issues arise Plan Detail Follow Up prn Coding Level of Care Code Off vis,est,level 3 Diagnoses Essential hypertension I10 Hypertension type: essential hypertension Pure hypercholesterolemia E78.00; E78.0 Hyperlipidemia type: pure hypercholesterolemia Coding Level of Care Code Off vis,est,level 3 Diagnoses Essential hypertension I10 Hypertension type: essential hypertension Pure hypercholesterolemia E78.00; E78.0 Hyperlipidemia type: pure hypercholesterolemia 04/11/18 1354 <Electronically signed by Rosendo Alvarado MD> Date Rosendo Alvarado MD Cosigner Signature: Date (if applicable) CC: ASSISTANT BASEBALL COACHMarlen Blankenship Martín Oscar PROGRESS Observed: 03/31/2018 Status: COMPLETED Source: [place] 12:37 PM [facility] REPOSITORY HNO ID: [id number] Author: Tyrone Saldana Service: (none) Author Type: Physician Type: Progress Notes Filed: 03/31/2018 12:38 PM Note Text: Please see ultrasound report for details of this visit. Tyrone Saldana M.D. CNOV Observed: 03/31/2018 Status: COMPLETED Source: [place] 10:00 AM [facility] REPOSITORY Office Visit (WOOB) KIMBER WOO ([id number]) 1950 F Date Time Provider Department 03/31/18 10:00 AM MAR PACHECO During your visit today, we recorded the following information about you: Blood pressure Weight 122/80 69 kg Mar Pacheco MD 03/31/2018 10:42 AM Signed Kimber Woo is a 67 year old female who presents for abdominal pain. HPI: Patient presents with lower abdominal pain. This pain started in February. She was doing a lot of walking. She's on omeprazole AND has been feeling better with the heartburn - saw AND had EGD for upper abdominal pain. Patient is concerned that the abdominal pain could be caused by her ovaries. She had a CT but doesn't know if it imaged her pelvis. Patient hasn't taken anything for the pain. PAST MEDICAL HISTORY Diagnosis Date - Cystocele, midline 2010 - Essential hypertension, benign - Mitral valve disorders - Personal history of colonic polyps - PMH - PAST MEDICAL HISTORY OF Has Tennis elbow Right elbow - Postmenopausal atrophic vaginitis - RA (rheumatoid arthritis) (HCC) - Symptomatic menopausal or female climacteric states PAST SURGICAL HISTORY Procedure Laterality Date - COLONOSCOP W/ OR W/O [facility] SPEC 10/21/10 Normal - COLONOSCOP W/ OR W/O [facility] SPEC 03/19/16 normal - 10 year follow up - COLONOSCOPY 2004 - CYSTO.PANENDO 04/19 Cystoscopy for torn kidney with fall. 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 calcium carbonate/vitamin D3 (CALCIUM+D ORAL) Take 1,200 mg by mouth once daily. FOLIC ACID ORAL Take by mouth. methotrexate 2.5 mg tablet Take by mouth one time only. TURMERIC (CURCUMIN MISC) BIOTIN ORAL Take by mouth. MULTIVITAMIN ORAL Take by mouth. atorvastatin (LIPITOR) 10 mg tablet VITAMIN D 50,000 unit capsule lisinopril (ZESTRIL, PRINIVIL) 10 mg tablet No current facility-administered medications for this visit. Allergies As of Date: 03/31/2018 Allergen Noted Reaction CONTRAST DYE [OTHER] 08/04/2010 Hives LATEX 02/26/2016 Other: See Comments ZITHROMAX [AZITHROMYCIN] 11/03/2005 GI Upset Fully Assessed 03/21/2018 REVIEW OF SYSTEMS Bladder: No dysuria, gross hematuria, urinary frequency, urinary urgency, or incontinence. Breast: No breast lumps, nipple d/c, overlying skin changes, redness or skin retraction. Expanded ROS: GENERAL: No weight loss, malaise or fevers Allergies and current medication updated:Yes EXAM: LMP 04/29/2006 GENERAL: pleasant, female in no apparent distress CHEST: Normal inspiratory effort ABDOMEN: soft, non-tender and no masses PELVIC: deferred, getting US today NEURO: alert and oriented x3,exam grossly non-focal EXTREMITIES: normal ASSESSMENT AND PLAN: 67yo female with lower abdominal pain Pelvic US today Mar Pcaheco MD Referring Provider: SELF [[id number]] Allergies As of Date: 03/31/2018 Noted Allergy Reaction Contrast Dye [Other] 08/04/2010 4 - Hives LATEX 02/26/2016 14 - Other: See Comments Comments: Sores in mouth from dentist ZITHROMAX (AZITHROMYCIN) 11/03/2005 8 - GI Upset Date Reviewed: 03/31/2018 Reviewed by: Mar Pacheco - Fully Assessed Reason for Visit: Pelvic Pain [282] Primary Visit Diagnosis:Lower abdominal pain [R10.30] Order(s):PELVIC US WHI [[id number]] Order #: [id number]: 1 FEMALE PELVIS TRANSVAG [[id number]] Order #: [id number] FUTURE FEMALE PELVIS TRANSABD LTD [[id number]] Order #: [id number] FUTURE Prescriptions as of 03/31/2018 Sig: OMEPRAZOLE 40 MG CAPSULE,DEBI* Take 1 capsule by mouth once * CALCIUM+D ORAL Take 1,200 mg by mouth once d* FOLIC ACID ORAL Take by mouth. METHOTREXATE SODIUM 2.5 MG TA* Take by mouth one time only. CURCUMIN MISC BIOTIN ORAL Take by mouth. MULTIVITAMIN ORAL Take by mouth. ATORVASTATIN 10 MG TABLET VITAMIN D2 50,000 UNIT CAPSULE LISINOPRIL 10 MG TABLET More... Problem List As Of Date 03/31/2018 Noted Resolved Routine gynecological examination [Z01.419] INVALID FOR* Priority: B Class: Chronic More... Asthma [J45.909] INVALID FOR* Priority: A More... Kidney laceration [S37.039A] INVALID FOR* More... Colon polyps [K63.5] INVALID FOR* More... Personal history of colonic polyps [Z86.010] INVALID FOR* Cystocele, midline [N81.11] INVALID FOR* Postmenopausal atrophic vaginitis [N95.2] INVALID FOR* Symptomatic menopausal or female climacteric st*INVALID FOR* Encounter Status:Closed by MAR PACHECO MD on 03/31/18 PROGRESS Observed: 03/31/2018 Status: COMPLETED Source: [place] 9:53 AM [facility] REPOSITORY O ID: [id number] Author: Mar Pacheco Service: (none) Author Type: Physician Type: Progress Notes Filed: 03/31/2018 10:42 AM Note Text: Kimber Woo is a 67 year old female who presents for abdominal pain. HPI: Patient presents with lower abdominal pain. This pain started in February. She was doing a lot of walking. She's on omeprazole AND has been feeling better with the heartburn - saw AND had EGD for upper abdominal pain. Patient is concerned that the abdominal pain could be caused by her ovaries. She had a CT but doesn't know if it imaged her pelvis. Patient hasn't taken anything for the pain. PAST MEDICAL HISTORY Diagnosis Date - Cystocele, midline 2010 - Essential hypertension, benign - Mitral valve disorders - Personal history of colonic polyps - PMH - PAST MEDICAL HISTORY OF Has Tennis elbow Right elbow - Postmenopausal atrophic vaginitis - RA (rheumatoid arthritis) (HCC) - Symptomatic menopausal or female climacteric states PAST SURGICAL HISTORY Procedure Laterality Date - COLONOSCOP W/ OR W/O [facility] SPEC 10/21/10 Normal - COLONOSCOP W/ OR W/O [facility] SPEC 03/19/16 normal - 10 year follow up - COLONOSCOPY 2004 - CYSTO.PANENDO 04/19 Cystoscopy for torn kidney with fall. 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 calcium carbonate/vitamin D3 (CALCIUM+D ORAL) Take 1,200 mg by mouth once daily. FOLIC ACID ORAL Take by mouth. methotrexate 2.5 mg tablet Take by mouth one time only. TURMERIC (CURCUMIN MISC) BIOTIN ORAL Take by mouth. MULTIVITAMIN ORAL Take by mouth. atorvastatin (LIPITOR) 10 mg tablet VITAMIN D 50,000 unit capsule lisinopril (ZESTRIL, PRINIVIL) 10 mg tablet No current facility-administered medications for this visit. Allergies As of Date: 03/31/2018 Allergen Noted Reaction CONTRAST DYE [OTHER] 08/04/2010 Hives LATEX 02/26/2016 Other: See Comments ZITHROMAX [AZITHROMYCIN] 11/03/2005 GI Upset Fully Assessed 03/21/2018 REVIEW OF SYSTEMS Bladder: No dysuria, gross hematuria, urinary frequency, urinary urgency, or incontinence. Breast: No breast lumps, nipple d/c, overlying skin changes, redness or skin retraction. Expanded ROS: GENERAL: No weight loss, malaise or fevers Allergies and current medication updated:Yes EXAM: LMP 04/29/2006 GENERAL: pleasant, female in no apparent distress CHEST: Normal inspiratory effort ABDOMEN: soft, non-tender and no masses PELVIC: deferred, getting US today NEURO: alert and oriented x3,exam grossly non-focal EXTREMITIES: normal ASSESSMENT AND PLAN: 67yo female with lower abdominal pain Pelvic US today Mar Pacheco MD DOWNTIME REPORT Observed: 03/30/2018 Status: F Source: [place] 12:31 PM [facility] REPOSITORY [facility] Medical Records Department [address] [address] Downtime Report MR#: [id number] Acct: [id number] Name: KIMBER WOO Rep #: [id number] : 1950 67 From: Marty Drake PCP: Pravin Moore, DARLENE-C Status: REG CLI This patient was seen during an EMR downtime March 13, 2018 - March 20, 2018. This patient may have a combination of paper and electronic documentation or all paper documentation. All documentation is viewable within the e-chart portion of [facility] for each patient visit. PROGRESS Observed: 03/23/2018 Status: COMPLETED Source: [place] 6:17 PM [facility] REPOSITORY HNO ID: [id number] Author: Pravin Mcdonald Service: (none) Author Type: Physician Type: Progress Notes Filed: 03/23/2018 6:20 PM Note Text: FOLLOW UP VISIT - ENDOSCOPY NAME: Kimber Woo [facility] NO.: [id number] DATE OF SERVICE: 03/21/2018 : 1950 REFERRING PHYSICIAN: MARY KAY Schrader Kimber is a patient I am following for upper abdominal symptoms Kimber notes discomfort in her lower abdomen and heartburn symptoms. The patient's noted. This vague lower abdominal pain for some time. She underwent a CT scan of the abdomen and pelvis at [facility] August 2017 which demonstrated a small hiatal hernia. A renal cyst, a very small umbilical hernia and some renal abnormalities including a left peripelvic renal cyst and left extrarenal pelvis. I performed colonoscopy March 19, 2016. This was unremarkable and I recommended 10 year follow-up colonoscopy. The patient notes the following upper complaints: Kimber notes abdominal pain. The pain occurs in the following locations: epigastric region . Kimber notes heartburn. Kimber notes dysphagia. Kimber denies a history of ulcers/ peptic ulcer disease. I performed upper endoscopy on March 14, 2018. The patient was found to have erythematous do adenopathy, mild gastritis, a small head or hernia, and mildly severe esophageal reflux. Pathology demonstrated: FINAL DIAGNOSIS 1. Jejunum, biopsy (A) - Small bowel mucosa with no diagnostic alteration. 2. Antrum, biopsy (B) - Antral mucosa with minimal chronic inflammation and reactive changes; no evidence of H. pylori. 3. Esophagogastric junction, biopsy (C) - Squamous mucosa with reactive changes. - No evidence of intestinal metaplasia or dysplasia. 4. Mid esophagus, biopsy (D) - Squamous mucosa with reactive changes. - No evidence of eosinophilic esophagitis. GILL/dirk 03/15/2018 The patient notes some improvement complaints since the procedure. VITALS: Last menstrual period 04/29/2006. On examination, the abdomen is benign. Assessment IMPRESSION: Reflux, gastritis, PLAN: If the patient notes any problems or changes in bowel function, the patient should contact me immediately. Otherwise I recommend follow up endoscopy as needed. Recommend she continue on her regular medications. If she notes that this does not help completely, then I would consider increasing her proton pump and low-dose or adding Carafate. Diagnoses: (K21.9) Gastroesophageal reflux disease, esophagitis presence not specified (primary encounter diagnosis) (R13.10) Dysphagia, unspecified type Return to Clinic: The patient is instructed to follow- up with me as needed. Pravin Mcdonald MD CNOV Observed: 03/21/2018 Status: COMPLETED Source: [place] 2:10 PM [facility] REPOSITORY Office Visit (GENSWS) KIMBER WOO ([id number]) 1950 F Date Time Provider Department 03/21/18 2:10 PM PRAVIN MCDONALD During your visit today, we recorded the following information about you: Pravin Mcdonald MD 03/21/2018 2:33 PM Signed The following instructions are important for you related to your office visit today with the [facility] General Surgeons. INSTRUCTIONS FOR PEPTIC ULCER DISEASE/GASTRITIS I discussed with you the findings of your upper endoscopy. Your upper endoscopy demonstrated signs of peptic ulcer disease or irritation. This can be seen as a range of issues from actual ulcers in the stomach or duodenum (first part of the small bowel) or irritation ranging from redness to more significant irritation with erosions of the stomach or duodenum. These conditions are usually caused from a combination of too much acid production or too little protective mucus production in the stomach. Factors that increase acid production include smoking and stress. If you smoke, stopping smoking will often cure these issues without needing other medications. Factors that decrease the stomach's production of protective mucus include alcohol consumption, smoking, aspirin and other anti-inflammatory use. Over the counter medications including antiacids and acid reducing medications including H2 blockers (Zantac and the like) and proton pump inhibitors (prilosec, prevacid and the like) neutralize or prevent acid production. Prescription strength proton pump inhibitors (PPIs) may be necessary if your symptoms persist. Carafate may be added to PPI treatment in refractory cases. Avoiding smoking, alcohol and antiinflammatory medications are important in the successful treatment of peptic diseases. New or worsening symptoms such are epigastric pain, burning, difficulty swallowing or food sticking should be relayed to your physician. Feeling full early after eating, or black, tarry, foul smelling stools are also worrisome. If you have any difficulties or concerns, you should contact our office immediately. INSTRUCTIONS FOR GERD Your presenting complaints are consistent with gastroesophageal reflux disease (GERD). GERD is diagnosed based on symptoms of reflux. Your esophagus can look normal at upper endoscopy and you still have GERD. Multiple factors effect GERD symptoms - acid production, obesity, smoking, food consumption, and time of meals Factors that increase acid production include smoking and stress. If you smoke, stopping smoking will often cure these issues without needing other medications. Over the counter medications including antiacids and acid reducing medications including H2 blockers (Zantac and the like) and proton pump inhibitors (prilosec, prevacid and the like) neutralize or prevent acid production. Prescription strength proton pump inhibitors (PPIs) may be necessary if your symptoms persist. Carafate may be added to PPI treatment in refractory cases. Avoiding smoking, alcohol and antiinflammatory medications are important in the successful treatment of reflux esophagitis and peptic diseases. Other factors that contribute to GERD and esophagitis are being overweight, eating large meals before laying down and certain foods. Weight loss will help improve many GERD complaints. Remaining upright after eating large meals and having a small supper will also help symptoms. Avoiding food that contribute to reflux - chocolate, caffeine, cheddar cheese may also help. New or worsening symptoms such are epigastric pain, burning, difficulty swallowing or food sticking should be relayed to your physician. Feeling full early after eating, or black, tarry, foul smelling stools are also worrisome. If you have any difficulties or concerns, you should contact our office immediately. If you note any additional difficulties, questions, or concerns, you should contact our office immediately @ [phone] and ask to be transferred to the General Surgery department. Pravin Mcdonald MD 03/23/2018 6:20 PM Signed FOLLOW UP VISIT - ENDOSCOPY NAME: Kimber Woo CLINIC NO.: [id number] DATE OF SERVICE: 03/21/2018 : 1950 REFERRING PHYSICIAN: MARY KAY Schrader Kimber is a patient I am following for upper abdominal symptoms Kimber notes discomfort in her lower abdomen and heartburn symptoms. The patient's noted. This vague lower abdominal pain for some time. She underwent a CT scan of the abdomen and pelvis at [facility] August 2017 which demonstrated a small hiatal hernia. A renal cyst, a very small umbilical hernia and some renal abnormalities including a left peripelvic renal cyst and left extrarenal pelvis. I performed colonoscopy March 19, 2016. This was unremarkable and I recommended 10 year follow-up colonoscopy. The patient notes the following upper complaints: Kimber notes abdominal pain. The pain occurs in the following locations: epigastric region . Kimber notes heartburn. Kimber notes dysphagia. Kimber denies a history of ulcers/ peptic ulcer disease. I performed upper endoscopy on March 14, 2018. The patient was found to have erythematous do adenopathy, mild gastritis, a small head or hernia, and mildly severe esophageal reflux. Pathology demonstrated: FINAL DIAGNOSIS 1. Jejunum, biopsy (A) - Small bowel mucosa with no diagnostic alteration. 2. Antrum, biopsy (B) - Antral mucosa with minimal chronic inflammation and reactive changes; no evidence of H. pylori. 3. Esophagogastric junction, biopsy (C) - Squamous mucosa with reactive changes. - No evidence of intestinal metaplasia or dysplasia. 4. Mid esophagus, biopsy (D) - Squamous mucosa with reactive changes. - No evidence of eosinophilic esophagitis. TP/plcindi 03/15/2018 The patient notes some improvement complaints since the procedure. VITALS: Last menstrual period 04/29/2006. On examination, the abdomen is benign. Assessment IMPRESSION: Reflux, gastritis, PLAN: If the patient notes any problems or changes in bowel function, the patient should contact me immediately. Otherwise I recommend follow up endoscopy as needed. Recommend she continue on her regular medications. If she notes that this does not help completely, then I would consider increasing her proton pump and low-dose or adding Carafate. Diagnoses: (K21.9) Gastroesophageal reflux disease, esophagitis presence not specified (primary encounter diagnosis) (R13.10) Dysphagia, unspecified type Return to Clinic: The patient is instructed to follow- up with me as needed. Pravin Mcdonald MD Referring Provider: PRAVIN MOORE [[id number]] Allergies As of Date: 03/21/2018 Noted Allergy Reaction Contrast Dye [Other] 08/04/2010 4 - Hives LATEX 02/26/2016 14 - Other: See Comments Comments: Sores in mouth from dentist ZITHROMAX (AZITHROMYCIN) 11/03/2005 8 - GI Upset Date Reviewed: 03/21/2018 Reviewed by: Pravin Mcdonald - Fully Assessed Reason for Visit: Post Op [174] Cmt: post op EGD Primary Visit Diagnosis:Gastroesophageal reflux disease, esophagitis presence not specified [K21.9] Other Visit Diagnosis:Dysphagia, unspecified type [R13.10] Order(s):Omeprazole (PRILOSEC) 40 mg capsuleTake 1 capsule by mouth once daily.Disp: 30 capsuleRfl: 3 Prescriptions as of 03/21/2018 Sig: OMEPRAZOLE 40 MG CAPSULE,DEBI* Take 1 capsule by mouth once * CALCIUM+D ORAL Take 1,200 mg by mouth once d* FOLIC ACID ORAL Take by mouth. METHOTREXATE SODIUM 2.5 MG TA* Take by mouth one time only. CURCUMIN MISC BIOTIN ORAL Take by mouth. MULTIVITAMIN ORAL Take by mouth. ATORVASTATIN 10 MG TABLET VITAMIN D2 50,000 UNIT CAPSULE LISINOPRIL 10 MG TABLET More... Problem List As Of Date 03/21/2018 Noted Resolved Routine gynecological examination [Z01.419] INVALID FOR* Priority: B Class: Chronic More... Asthma [J45.909] INVALID FOR* Priority: A More... Kidney laceration [S37.039A] INVALID FOR* More... Colon polyps [K63.5] INVALID FOR* More... Personal history of colonic polyps [Z86.010] INVALID FOR* Cystocele, midline [N81.11] INVALID FOR* Postmenopausal atrophic vaginitis [N95.2] INVALID FOR* Symptomatic menopausal or female climacteric st*INVALID FOR* Other instructions from your clinician: The following instructions are important for you related to your office visit today with the [facility] General Surgeons. INSTRUCTIONS FOR PEPTIC ULCER DISEASE/GASTRITIS I discussed with you the findings of your upper endoscopy. Your upper endoscopy demonstrated signs of peptic ulcer disease or irritation. This can be seen as a range of issues from actual ulcers in the stomach or duodenum (first part of the small bowel) or irritation ranging from redness to more significant irritation with erosions of the stomach or duodenum. These conditions are usually caused from a combination of too much acid production or too little protective mucus production in the stomach. Factors that increase acid production include smoking and stress. If you smoke, stopping smoking will often cure these issues without needing other medications. Factors that decrease the stomach's production of protective mucus include alcohol consumption, smoking, aspirin and other anti-inflammatory use. Over the counter medications including antiacids and acid reducing medications including H2 blockers (Zantac and the like) and proton pump inhibitors (prilosec, prevacid and the like) neutralize or prevent acid production. Prescription strength proton pump inhibitors (PPIs) may be necessary if your symptoms persist. Carafate may be added to PPI treatment in refractory cases. Avoiding smoking, alcohol and antiinflammatory medications are important in the successful treatment of peptic diseases. New or worsening symptoms such are epigastric pain, burning, difficulty swallowing or food sticking should be relayed to your physician. Feeling full early after eating, or black, tarry, foul smelling stools are also worrisome. If you have any difficulties or concerns, you should contact our office immediately. INSTRUCTIONS FOR GERD Your presenting complaints are consistent with gastroesophageal reflux disease (GERD). GERD is diagnosed based on symptoms of reflux. Your esophagus can look normal at upper endoscopy and you still have GERD. Multiple factors effect GERD symptoms - acid production, obesity, smoking, food consumption, and time of meals Factors that increase acid production include smoking and stress. If you smoke, stopping smoking will often cure these issues without needing other medications. Over the counter medications including antiacids and acid reducing medications including H2 blockers (Zantac and the like) and proton pump inhibitors (prilosec, prevacid and the like) neutralize or prevent acid production. Prescription strength proton pump inhibitors (PPIs) may be necessary if your symptoms persist. Carafate may be added to PPI treatment in refractory cases. Avoiding smoking, alcohol and antiinflammatory medications are important in the successful treatment of reflux esophagitis and peptic diseases. Other factors that contribute to GERD and esophagitis are being overweight, eating large meals before laying down and certain foods. Weight loss will help improve many GERD complaints. Remaining upright after eating large meals and having a small supper will also help symptoms. Avoiding food that contribute to reflux - chocolate, caffeine, cheddar cheese may also help. New or worsening symptoms such are epigastric pain, burning, difficulty swallowing or food sticking should be relayed to your physician. Feeling full early after eating, or black, tarry, foul smelling stools are also worrisome. If you have any difficulties or concerns, you should contact our office immediately. If you note any additional difficulties, questions, or concerns, you should contact our office immediately @ [phone] and ask to be transferred to the General Surgery department. Prescriptions ordered this encounter Disp Refills Start End OMEPRAZOLE 40 MG CAPSULE,DELAYED REL* 30 c* 3 03/21/2018 06/19/2018 Route: ORAL Sig: Take 1 capsule by mouth once daily. Medications Discontinued During This Encounter Omeprazole (PRILOSEC) 40 mg capsule 30 c* 0 03/14/2018 03/21/2018 Class: Print RX Route: ORAL Sig: Take 1 capsule by mouth once daily. Disc: Reason for discontinue is not on file. Letter Text Encounter Status:Closed by PRAVIN MCDONALD MD on 03/23/18 NURSING PROG Observed: 03/14/2018 Status: COMPLETED Source: [place] 1:25 PM [facility] REPOSITORY HNO ID: [id number] Author: Flora Montanez RN Service: (none) Author Type: Registered Nurse Type: Nursing Progress Note Filed: 03/14/2018 1:26 PM Note Text: Patient did not experience a fall prior to discharge. Patient did not experience a burn prior to discharge. Flora Montanez RN NURSING PROG Observed: 03/14/2018 Status: COMPLETED Source: [place] 1:18 PM [facility] REPOSITORY HNO ID: [id number] Author: Flora Montanez RN Service: (none) Author Type: Registered Nurse Type: Nursing Progress Note Filed: 03/14/2018 1:18 PM Note Text: Dr. Mcdonald was by and spoke with both pt and . Flora Montanez RN NURSING PROG Observed: 03/14/2018 Status: COMPLETED Source: [place] 12:55 PM [facility] REPOSITORY HNO ID: [id number] Author: Flora Montanez RN Service: (none) Author Type: Registered Nurse Type: Nursing Progress Note Filed: 03/14/2018 1:06 PM Note Text: Pt sitting up in bed tolerating snack and drink without difficulty. Denies pain or nausea. at bedside. Denies sore throat No complaints. Flora Montanez RN PT ED Observed: 03/14/2018 Status: COMPLETED Source: [place] 12:44 PM [facility] REPOSITORY HNO ID: [id number] Author: Flora Montanez RN Service: (none) Author Type: Registered Nurse Type: Patient Education Filed: 03/14/2018 12:44 PM Note Text: POST OP LEARNING RESPONSE INSTRUCTION PROVIDED TO: Patient and Spouse METHOD OF INSTRUCTION: Individual instruction Written instruction - handouts Verbal instruction PATIENT / FAMILY RESPONSE: Verbalizes understanding of: MEDICAL REGIMEN-Importance of following prescribed medical regimen POST-PROCEDURE INSTRUCTIONS-Correct actions to take to reduce post procedure complications WORSENING CONDITION-Signs and symptoms of a worsening condition that warrant a call to the physician FOLLOW-UP PLAN: Patient instructed to call with any further issues Follow up phone call. Contact information given. SUPPLEMENTAL MATERIAL: Procedure discharge instructions REFERRAL (RECOMMENDATION): None Electronically Signed By: Flora Montanez RN In Department: AMBULATORY SURGERY NURSING PROG Observed: 03/14/2018 Status: COMPLETED Source: [place] 12:26 PM [facility] REPOSITORY HNO ID: [id number] Author: Coby Funes RN Service: (none) Author Type: Registered Nurse Type: Nursing Progress Note Filed: 03/14/2018 12:27 PM Note Text: Patient did not experience a fall within the Intraoperative area. Patient did not experience a burn within the Intraoperative area. Coby Funes RN NURSING PROG Observed: 03/14/2018 Status: COMPLETED Source: [place] 12:05 PM [facility] REPOSITORY HNO ID: [id number] Author: Leticia Montoya RN Service: Nursing Author Type: Registered Nurse Type: Nursing Progress Note Filed: 03/14/2018 12:07 PM Note Text: [facility] PRE-OP NURSING HAND OFF NOTE SBAR Hand off given to Coby Funes RN. Hand off was communicated verbally and at the patient's bedside and all questions were answered. FALLS/MARTINEZ Patient did not experience a fall within the Preoperative area. Patient did not experience a burn within the Preoperative area. Leticia Montoya RN NURSING PROG Observed: 03/14/2018 Status: COMPLETED Source: [place] 12:02 PM [facility] REPOSITORY HNO ID: [id number] Author: Leticia (Rn) ERMA Montoya Service: Nursing Author Type: Registered Nurse Type: Nursing Progress Note Filed: 03/14/2018 12:07 PM Note Text: Up to the restroom. HISTORY PHYSICAL Observed: 03/14/2018 Status: COMPLETED Source: [place] 10:51 AM [facility] REPOSITORY HNO ID: [id number] Author: Pravin Mcdonald Service: General Surgery Author Type: Physician Type: HANDP Filed: 03/14/2018 10:51 AM Note Text: HISTORY AND PHYSICAL ? Kimber Woo 1950 ? REFERRING PHYSICIAN: Self ? CHIEF COMPLAINT: Consult (hernia) ? HPI: The patient is a 67 year old female referred for endoscopy. Kimber notes discomfort in her lower abdomen and heartburn symptoms. The patient's noted. This vague lower abdominal pain for some time. She underwent a CT scan of the abdomen and pelvis at [facility] August 2017 which demonstrated a small hiatal hernia. A renal cyst, a very small umbilical hernia and some renal abnormalities including a left peripelvic renal cyst and left extrarenal pelvis. ? I performed colonoscopy March 19, 2016. This was unremarkable and I recommended 10 year follow-up colonoscopy. ? The patient notes the following upper complaints: Kimber notes abdominal pain. The pain occurs in the following locations: epigastric region . Kimber notes heartburn. Kimber notes dysphagia. Kimber denies a history of ulcers/ peptic ulcer disease. ? The patient is being seen by me today at the request of MARY KAY Schrader for my opinion and advice regarding abdominal pain, heartburn, after drinking water. ? ? PAST MEDICAL HISTORY PAST MEDICAL HISTORY Diagnosis Date - Cystocele, midline 2010 - Essential hypertension, benign ? - Mitral valve disorders ? - Personal history of colonic polyps ? - PMH - PAST MEDICAL HISTORY OF ? ? Has Tennis elbow Right elbow - Postmenopausal atrophic vaginitis ? - RA (rheumatoid arthritis) (HCC) ? - Symptomatic menopausal or female climacteric states ? ? ? PAST SURGICAL HISTORY PAST SURGICAL HISTORY Procedure Laterality Date - COLONOSCOP W/ OR W/O [facility] SPEC ? 10/21/10 ? Normal - COLONOSCOP W/ OR W/O [facility] SPEC ? 03/19/16 ? normal - 10 year follow up - COLONOSCOPY ? 2005 - CYSTO.PANENDO ? 04/19 ? Cystoscopy for torn kidney with fall. No surg - PAST SURGICAL HISTORY OF ? ? ? Right knee surgery - PAST SURGICAL HISTORY OF ? 2007 ? Heart Catheterization - PAST SURGICAL HISTORY OF ? April 2010 ? Scope- Tore Kidney ? ? ? CURRENT MEDICATIONS ? Current Outpatient Prescriptions: calcium carbonate/vitamin D3 (CALCIUM+D ORAL) Take 1,200 mg by mouth once daily. FOLIC ACID ORAL Take by mouth. methotrexate 2.5 mg tablet Take by mouth one time only. TURMERIC (CURCUMIN MISC) ? BIOTIN ORAL Take by mouth. MULTIVITAMIN ORAL Take by mouth. atorvastatin (LIPITOR) 10 mg tablet ? VITAMIN D 50,000 unit capsule ? lisinopril (ZESTRIL, PRINIVIL) 10 mg tablet ? ? No current facility-administered medications for this visit. ? ALLERGIES: Contrast Dye [Other]; Latex; Zithromax [Azithromycin] ? PERSONAL HISTORY: SOCIAL HISTORY Social History Marital status: Spouse name: Fariha Years of education: 12 Number of children: 2 ? 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 Social History Main Topics Smoking status: Former Smoker Packs/day: 0.00 Years: 0.00 Smokeless tobacco: Never Used Comment: quit as a teen Alcohol use: No Drug use: No Sexual activity: Yes Partners with: Male control/protection: Other Comment: Postmenopausal ? ? FAMILY HISTORY: FAMILY HISTORY FAMILY HISTORY Problem Relation Age of Onset - None Mother ? - Heart Father ? ? ? [place] late in life - Cancer Father ? ? ? MELANOMA - Alzheimer's Disease Maternal Grandmother ? - Hypertension Brother ? - Coronary Artery Disease Other ? ? ? no premature - Colon Cancer Other ? ? ? none - Hypertension Brother ? ? ? REVIEW OF SYMPTOMS: The review of systems data was entered by the nurse and reviewed by me ? There are no exam notes on file for this visit. ? PHYSICAL EXAMINATION: ? General: The patient is 67 year old female, well nourished, well hydrated in no acute distress. The patient is oriented to time, place, and person. ? VITALS: Blood pressure 140/80, pulse 76, temperature 37.3 ?C (99.2 ?F), weight 68.9 kg (152 lb), last menstrual period 04/29/2006. Body mass index is 24.53 kg/m?. ? HEENT: Normal cephalic, ataumatic, pupils are equally round, sclera are anicteric, mucous membranes are moist, oropharynx is clear. Neck has no masses, asymmetry or lymphadenopathy. Thyroid is unremarkable. ? Respiratory: Clear to auscultation and percussion. Normal respiratory excursion and pattern. ? Cardiac: Examination is regular rate and rhythm. ? Abdominal exam: Soft, nontender, with no palpable masses. No hepatosplenomegaly. No palpable hernias. ? Rectal exam: exam deferred ? Extremities: no clubbing, cyanosis or edema. No adenopathy. ? Other: ? LABORATORY VALUES: As Noted ? RADIOLOGIC STUDIES: As Noted ? Assessment IMPRESSION: Abdominal pain, normal recent colonoscopy, relatively unremarkable CT scan ? PLAN: I plan to perform upper endoscopy. We discussed the risks and benefits of the planned endoscopy. I have informed the patient that complications can occur including failure to complete the endoscopy and perforation. The patient had the opportunity to ask questions concerning the planned endoscopy. My staff has also explained the procedure to the patient in understandable terms and has given the patient printed material concerning the procedure. The patient freely consents to surgery. ? Diagnoses: (R13.10) Dysphagia, unspecified type (primary encounter diagnosis) (R10.9) Abdominal pain, unspecified abdominal location ? A letter was sent to MARY KAY Schrader indicating the above finding for this patient. Return to Clinic: The patient is instructed to follow-up with me after the testing has been completed. ? Pravin Mcdonald MD NURSING PROG Observed: 03/14/2018 Status: COMPLETED Source: [place] 10:41 AM [facility] REPOSITORY HNO ID: [id number] Author: Leticia SilvestreRn) ERMA Montoya Service: Nursing Author Type: Registered Nurse Type: Nursing Progress Note Filed: 03/14/2018 10:41 AM Note Text: [facility] PRE-OP NURSING HAND OFF NOTE SBAR Hand off given to Coco El RN. Hand off was communicated verbally and all questions were answered. Leticia Montoya RN PT ED Observed: 03/14/2018 Status: COMPLETED Source: [place] 10:32 AM [facility] REPOSITORY HNO ID: [id number] Author: Leticia (Rn) ERMA Montoya Service: Nursing Author Type: Registered Nurse Type: Patient Education Filed: 03/14/2018 10:32 AM Note Text: PRE OP LEARNING ASSESSMENT PROCEDURE/SURGERY: GI PROCEDURES: EGD READINESS TO LEARN COGNITIVE ABILITY: Alert and oriented MOTIVATION TO LEARN: Eager Interested FAMILY SUPPORT: High - Very involved in pt care PATIENT LEARNS BEST BY: Individual Instruction Written Instruction - Hand-outs Verbal Instruction FACTORS AFFECTING LEARNING: None PHYSICAL LIMITATIONS AFFECTING LEARNING: None Electronically Signed By: Leticia Montoya RN In Department: AMBULATORY SURGERY SURGICAL PATHOLOGY Observed: 03/14/2018 Status: F Source: [place] 12:00 AM [facility] REPOSITORY Specimen originated from [facility] Specimen #: [id number] Submitting Physician: PRAVIN MCDONALD ([id number]) FINAL DIAGNOSIS 1. Jejunum, biopsy (A) - Small bowel mucosa with no diagnostic alteration. 2. Antrum, biopsy (B) - Antral mucosa with minimal chronic inflammation and reactive changes; no evidence of H. pylori. 3. Esophagogastric junction, biopsy (C) - Squamous mucosa with reactive changes. - No evidence of intestinal metaplasia or dysplasia. 4. Mid esophagus, biopsy (D) - Squamous mucosa with reactive changes. - No evidence of eosinophilic esophagitis. TP/dirk 03/15/2018 Enoc Montes M.D. (Electronic Signature) SPECIMEN SUBMITTED A: JEJUNUM, BIOPSY B: ANTRUM, BIOPSY H/H C: ESOPHAGOGASTRIC JUNCTION, BIOPSY D: MID ESOPHAGUS, BIOPSY CLINICAL DATA R13.10 GROSS DESCRIPTION A. Received in formalin is one piece of mclean, soft tissue measuring 0.5 x 0.3 x 0.2 cm. Totally submitted in one cassette. B. Received in formalin is one piece of mclean, soft tissue measuring 0.5 x 0.3 x 0.2 cm. Totally submitted in one cassette. C. Received in formalin is one piece of mclean, soft tissue measuring 0.6 x 0.2 x 0.1 cm. Totally submitted in one cassette. D. Received in formalin is one piece of mclean, soft tissue measuring 0.8 x 0.2 x 0.1 cm. Totally submitted in one cassette. Gross examination performed at [facility], [address] [place] [address] 03/15/2018 1:46:26 AM Date of Report: 03/15/2018 Date of Procedure: 03/14/2018 Date of Receipt: 03/14/2018 Submitted by: PRAVIN MCDONALD ([id number]) [facility] performed at [place] [address]. COMPREHENSIVE METABOLIC Collected: 03/13/2018 Status: F Source: [facility] 10:45 AM [facility] REPOSITORY Order Comment: RESULT(S) PREVIOUSLY REPORTED ON MANUAL REQUISITION DURING DOWNTIME. TYPE CODE TESTS RESULT OUT OF RANGE REFERENCE UNITS LAB L501.0100 74-106 mg/dL High GLU 113 Result Comment: Fasting Glucose result from 100 to 125 mg/dL suggests IMPAIRED HOMEOSTASIS per A.D.A. criteria. Please note revised GLUCOSE reference range effective 2017. LAB L501.1000 7-18 mg/dL Normal BUN 14 LAB L501.1100 0.55-1.02 mg/dL Normal CREAT,SERUM 0.75 Result Comment: The validity of the calculated GFR AND GFRAA in patients over 70 years has not been determined. Clinical correlation is essential. LAB L501.1110 >60 mL/min Normal EST GFR 82 LAB L501.1115 >60 mL/min Normal EST GFR - AA 99 LAB L501.1300 10-20 RATIO Normal BUN/CRE 18.7 LAB L501.1500 6.4-8.2 g/dL Normal T PROT 7.0 LAB L501.1800 3.2-5.0 g/dL Normal ALB 3.8 LAB L501.1950 2.2-4.2 g/dL Normal GLOB 3.2 LAB L501.2000 0.9-2.4 RATIO Normal A/G 1.2 LAB L501.2200 8.5-10.1 mg/dL Low CA 8.4 LAB L501.4100 15-37 U/L Normal AST 19 LAB L501.4305 45-117 U/L Normal ALK P 94 LAB L501.4405 13-56 U/L Normal ALT 31 LAB L501.4600 0.20-1.00 mg/dL Normal T BILI 0.60 LAB L501.5300 136-145 mmol/L Normal NA 142 LAB L501.5600 3.5-5.1 mmol/L Normal K 4.2 LAB L501.5900 98-107 mmol/L Normal CL 107 LAB L501.6100 21.0-32.0 mmol/L Normal CO2 29.0 LAB L501.6200 5-15 Normal GAP 6 Performed By: #### L500.4050 #### [facility] [address] [place], [address] CBC W/DIFF, AUTOMATED Collected: 03/13/2018 Status: F Source: [place] 10:45 AM [facility] REPOSITORY Order Comment: RESULT(S) PREVIOUSLY REPORTED ON MANUAL REQUISITION DURING DOWNTIME. TYPE CODE TESTS RESULT OUT OF RANGE REFERENCE UNITS LAB L100.1000 4.4-11.0 K/mm3 Normal WBC 4.6 LAB L100.1200 4.2-5.4 M/mm3 Low RBC 4.17 LAB L100.1300 12.0-15.0 g/dl Normal HGB 12.6 LAB L100.1400 37-47 % Normal HCT 37.9 LAB L100.1500 81-99 fL Normal MCV 90.9 LAB L100.1600 27.0-32.0 pg Normal MCH 30.2 LAB L100.1700 32-36 g/gl Normal MCHC 33.2 LAB L100.1810 11.6-14.6 % Normal RDW CV 12.9 LAB L100.1820 35.1-43.9 fl Normal RDW SD 41.4 LAB L100.1900 150-450 K/mm3 Normal PLT 205 LAB L100.2000 6.2-12.0 fl Normal MPV 10.3 LAB L100.2100 47-70 % Normal NEUT% 58.6 LAB L100.2200 19-41 % Normal LY% 30.3 LAB L100.2300 0-10 % Normal MONO% 8.3 LAB L100.2400 0-5 % Normal EO% 2.4 LAB L100.2500 0-1 % Normal BASO% 0.2 LAB L100.2550 0.0-0.9 % Normal IM GRAN % 0.200 Result Comment: IG% - Immature Granulocytes (promyelocytes, myelocytes and metamyelocytes) > 1% indicates that a LEFT SHIFT is Present. LAB L100.2620 2.0-7.7 X10 3/uL Normal Absolute Neut 2.7 LAB L100.2720 0.83-4.51 X10 3/ul Normal Absolute Lymph 1.39 Performed By: #### L100.0100 #### [facility] [address] [place] [address]. [place], [place], [address] PROGRESS Observed: 03/06/2018 Status: COMPLETED Source: [place] 9:54 AM [facility] REPOSITORY HNO ID: [id number] Author: Pravin Mcdonald Service: (none) Author Type: Physician Type: Progress Notes Filed: 03/06/2018 10:01 AM Note Text: HISTORY AND PHYSICAL Kimber Woo 1950 REFERRING PHYSICIAN: Self CHIEF COMPLAINT: Consult (hernia) HPI: The patient is a 67 year old female referred for endoscopy. Kimber notes discomfort in her lower abdomen and heartburn symptoms. The patient's noted. This vague lower abdominal pain for some time. She underwent a CT scan of the abdomen and pelvis at [facility] August 2017 which demonstrated a small hiatal hernia. A renal cyst, a very small umbilical hernia and some renal abnormalities including a left peripelvic renal cyst and left extrarenal pelvis. I performed colonoscopy March 19, 2016. This was unremarkable and I recommended 10 year follow-up colonoscopy. The patient notes the following upper complaints: Kimber notes abdominal pain. The pain occurs in the following locations: epigastric region . Kimber notes heartburn. Kimber notes dysphagia. Kimber denies a history of ulcers/ peptic ulcer disease. The patient is being seen by me today at the request of MARY KAY Schrader for my opinion and advice regarding abdominal pain, heartburn, after drinking water. PAST MEDICAL HISTORY Diagnosis Date - Cystocele, midline 2010 - Essential hypertension, benign - Mitral valve disorders - Personal history of colonic polyps - PMH - PAST MEDICAL HISTORY OF Has Tennis elbow Right elbow - Postmenopausal atrophic vaginitis - RA (rheumatoid arthritis) (HCC) - Symptomatic menopausal or female climacteric states PAST SURGICAL HISTORY Procedure Laterality Date - COLONOSCOP W/ OR W/O [facility] SPEC 10/21/10 Normal - COLONOSCOP W/ OR W/O [facility] SPEC 03/19/16 normal - 10 year follow up - COLONOSCOPY 2004 - CYSTO.PANENDO 04/19 Cystoscopy for torn kidney with fall. No surg - PAST SURGICAL HISTORY OF Right knee surgery - PAST SURGICAL HISTORY OF 2007 Heart Catheterization - PAST SURGICAL HISTORY OF April 2010 Scope- Tore Kidney Current Outpatient Prescriptions: calcium carbonate/vitamin D3 (CALCIUM+D ORAL) Take 1,200 mg by mouth once daily. FOLIC ACID ORAL Take by mouth. methotrexate 2.5 mg tablet Take by mouth one time only. TURMERIC (CURCUMIN MISC) BIOTIN ORAL Take by mouth. MULTIVITAMIN ORAL Take by mouth. atorvastatin (LIPITOR) 10 mg tablet VITAMIN D 50,000 unit capsule lisinopril (ZESTRIL, PRINIVIL) 10 mg tablet No current facility-administered medications for this visit. 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 Social History Main Topics Smoking status: Former Smoker Packs/day: 0.00 Years: 0.00 Smokeless tobacco: Never Used Comment: quit as a teen Alcohol use: No Drug use: No Sexual activity: Yes Partners with: Male control/protection: Other Comment: Postmenopausal FAMILY HISTORY: FAMILY HISTORY Problem Relation Age of Onset - None Mother - Heart Father SD late in life - Cancer Father MELANOMA - Alzheimer's Disease Maternal Grandmother - Hypertension Brother - Coronary Artery Disease Other no premature - Colon Cancer Other none - Hypertension Brother REVIEW OF SYMPTOMS: The review of systems data was entered by the nurse and reviewed by me There are no exam notes on file for this visit. PHYSICAL EXAMINATION: General: The patient is 67 year old female, well nourished, well hydrated in no acute distress. The patient is oriented to time, place, and person. VITALS: Blood pressure 140/80, pulse 76, temperature 37.3 ?C (99.2 ?F), weight 68.9 kg (152 lb), last menstrual period 04/29/2006. Body mass index is 24.53 kg/m?. HEENT: Normal cephalic, ataumatic, pupils are equally round, sclera are anicteric, mucous membranes are moist, oropharynx is clear. Neck has no masses, asymmetry or lymphadenopathy. Thyroid is unremarkable. Respiratory: Clear to auscultation and percussion. Normal respiratory excursion and pattern. Cardiac: Examination is regular rate and rhythm. Abdominal exam: Soft, nontender, with no palpable masses. No hepatosplenomegaly. No palpable hernias. Rectal exam: exam deferred Extremities: no clubbing, cyanosis or edema. No adenopathy. Other: LABORATORY VALUES: As Noted RADIOLOGIC STUDIES: As Noted Assessment IMPRESSION: Abdominal pain, normal recent colonoscopy, relatively unremarkable CT scan PLAN: I plan to perform upper endoscopy. We discussed the risks and benefits of the planned endoscopy. I have informed the patient that complications can occur including failure to complete the endoscopy and perforation. The patient had the opportunity to ask questions concerning the planned endoscopy. My staff has also explained the procedure to the patient in understandable terms and has given the patient printed material concerning the procedure. The patient freely consents to surgery. Diagnoses: (R13.10) Dysphagia, unspecified type (primary encounter diagnosis) (R10.9) Abdominal pain, unspecified abdominal location A letter was sent to MARY KAY Schrader indicating the above finding for this patient. Return to Clinic: The patient is instructed to follow-up with me after the testing has been completed. Pravin Mcdonald MD CNOV Observed: 03/02/2018 Status: COMPLETED Source: [place] 10:30 AM [facility] REPOSITORY Office Visit (GENSWS) AMNAKIMBER ([id number]) 1950 F Date Time Provider Department 03/02/18 10:30 AM PRAVIN MCDONALD GENSWS During your visit today, we recorded the following information about you: Temperature Pulse Blood pressure Weight 99.2 degrees 76/minute 140/80 68.9 kg Pravin Mcdonald MD 03/06/2018 10:01 AM Signed HISTORY AND PHYSICAL Kimber W Amna 1950 REFERRING PHYSICIAN: Self CHIEF COMPLAINT: Consult (hernia) HPI: The patient is a 67 year old female referred for endoscopy. Kimber notes discomfort in her lower abdomen and heartburn symptoms. The patient's noted. This vague lower abdominal pain for some time. She underwent a CT scan of the abdomen and pelvis at [facility] August 2017 which demonstrated a small hiatal hernia. A renal cyst, a very small umbilical hernia and some renal abnormalities including a left peripelvic renal cyst and left extrarenal pelvis. I performed colonoscopy March 19, 2016. This was unremarkable and I recommended 10 year follow-up colonoscopy. The patient notes the following upper complaints: Kimber notes abdominal pain. The pain occurs in the following locations: epigastric region . Kimber notes heartburn. Kimber notes dysphagia. Kimber denies a history of ulcers/ peptic ulcer disease. The patient is being seen by me today at the request of MARY KAY Schrader for my opinion and advice regarding abdominal pain, heartburn, after drinking water. PAST MEDICAL HISTORY Diagnosis Date - Cystocele, midline 2010 - Essential hypertension, benign - Mitral valve disorders - Personal history of colonic polyps - PMH - PAST MEDICAL HISTORY OF Has Tennis elbow Right elbow - Postmenopausal atrophic vaginitis - RA (rheumatoid arthritis) (HCC) - Symptomatic menopausal or female climacteric states PAST SURGICAL HISTORY Procedure Laterality Date - COLONOSCOP W/ OR W/O BRSH SPEC 10/21/10 Normal - COLONOSCOP W/ OR W/O [facility] SPEC 03/19/16 normal - 10 year follow up - COLONOSCOPY 2004 - CYSTO.PANENDO 04/19 Cystoscopy for torn kidney with fall. No surg - PAST SURGICAL HISTORY OF Right knee surgery - PAST SURGICAL HISTORY OF 2007 Heart Catheterization - PAST SURGICAL HISTORY OF April 2010 Scope- Tore Kidney Current Outpatient Prescriptions: calcium carbonate/vitamin D3 (CALCIUM+D ORAL) Take 1,200 mg by mouth once daily. FOLIC ACID ORAL Take by mouth. methotrexate 2.5 mg tablet Take by mouth one time only. TURMERIC (CURCUMIN MISC) BIOTIN ORAL Take by mouth. MULTIVITAMIN ORAL Take by mouth. atorvastatin (LIPITOR) 10 mg tablet VITAMIN D 50,000 unit capsule lisinopril (ZESTRIL, PRINIVIL) 10 mg tablet No current facility-administered medications for this visit. 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 Social History Main Topics Smoking status: Former Smoker Packs/day: 0.00 Years: 0.00 Smokeless tobacco: Never Used Comment: quit as a teen Alcohol use: No Drug use: No Sexual activity: Yes Partners with: Male control/protection: Other Comment: Postmenopausal FAMILY HISTORY: FAMILY HISTORY Problem Relation Age of Onset - None Mother - Heart Father SD late in life - Cancer Father MELANOMA - Alzheimer's Disease Maternal Grandmother - Hypertension Brother - Coronary Artery Disease Other no premature - Colon Cancer Other none - Hypertension Brother REVIEW OF SYMPTOMS: The review of systems data was entered by the nurse and reviewed by me There are no exam notes on file for this visit. PHYSICAL EXAMINATION: General: The patient is 67 year old female, well nourished, well hydrated in no acute distress. The patient is oriented to time, place, and person. VITALS: Blood pressure 140/80, pulse 76, temperature 37.3 ?C (99.2 ?F), weight 68.9 kg (152 lb), last menstrual period 04/29/2006. Body mass index is 24.53 kg/m?. HEENT: Normal cephalic, ataumatic, pupils are equally round, sclera are anicteric, mucous membranes are moist, oropharynx is clear. Neck has no masses, asymmetry or lymphadenopathy. Thyroid is unremarkable. Respiratory: Clear to auscultation and percussion. Normal respiratory excursion and pattern. Cardiac: Examination is regular rate and rhythm. Abdominal exam: Soft, nontender, with no palpable masses. No hepatosplenomegaly. No palpable hernias. Rectal exam: exam deferred Extremities: no clubbing, cyanosis or edema. No adenopathy. Other: LABORATORY VALUES: As Noted RADIOLOGIC STUDIES: As Noted Assessment IMPRESSION: Abdominal pain, normal recent colonoscopy, relatively unremarkable CT scan PLAN: I plan to perform upper endoscopy. We discussed the risks and benefits of the planned endoscopy. I have informed the patient that complications can occur including failure to complete the endoscopy and perforation. The patient had the opportunity to ask questions concerning the planned endoscopy. My staff has also explained the procedure to the patient in understandable terms and has given the patient printed material concerning the procedure. The patient freely consents to surgery. Diagnoses: (R13.10) Dysphagia, unspecified type (primary encounter diagnosis) (R10.9) Abdominal pain, unspecified abdominal location A letter was sent to MARY KAY Schrader indicating the above finding for this patient. Return to Clinic: The patient is instructed to follow-up with me after the testing has been completed. Pravin Mcdonald MD Referring Provider: SELF [200] Allergies As of Date: 03/02/2018 Noted Allergy Reaction Contrast Dye [Other] 08/04/2010 4 - Hives LATEX 02/26/2016 14 - Other: See Comments Comments: Sores in mouth from dentist ZITHROMAX (AZITHROMYCIN) 11/03/2005 8 - GI Upset Date Reviewed: 03/02/2018 Reviewed by: Pravin Mcdonald - Fully Assessed Reason for Visit: Consult [173] Cmt: hernia Primary Visit Diagnosis:Dysphagia, unspecified type [R13.10] Other Visit Diagnosis:Abdominal pain, unspecified abdominal location [R10.9] Prescriptions as of 03/02/2018 Sig: CALCIUM+D ORAL Take 1,200 mg by mouth once d* FOLIC ACID ORAL Take by mouth. METHOTREXATE SODIUM 2.5 MG TA* Take by mouth one time only. CURCUMIN MISC BIOTIN ORAL Take by mouth. MULTIVITAMIN ORAL Take by mouth. ATORVASTATIN 10 MG TABLET VITAMIN D2 50,000 UNIT CAPSULE LISINOPRIL 10 MG TABLET More... Problem List As Of Date 03/02/2018 Noted Resolved Routine gynecological examination [Z01.419] INVALID FOR* Priority: B Class: Chronic More... Asthma [J45.909] INVALID FOR* Priority: A More... Kidney laceration [S37.039A] INVALID FOR* More... Colon polyps [K63.5] INVALID FOR* More... Personal history of colonic polyps [Z86.010] INVALID FOR* Cystocele, midline [N81.11] INVALID FOR* Postmenopausal atrophic vaginitis [N95.2] INVALID FOR* Symptomatic menopausal or female climacteric st*INVALID FOR* Letter Text Encounter Status:Closed by PRAVIN MCDONALD MD on 03/06/18 HOSP Observed: 03/02/2018 Status: COMPLETED Source: [place] 12:00 AM [facility] REPOSITORY Patient:Kimber Woo MRN: <[id number]> Height:5' 6(1.676 m) Weight:151 lb 14.4 oz (68.9 kg) Outpatient Medications as of 03/14/18: calcium carbonate/vitamin D3 (CALCIUM+D ORAL) FOLIC ACID ORAL methotrexate 2.5 mg tablet TURMERIC (CURCUMIN MISC) BIOTIN ORAL MULTIVITAMIN ORAL atorvastatin (LIPITOR) 10 mg tablet VITAMIN D 50,000 unit capsule lisinopril (ZESTRIL, PRINIVIL) 10 mg tablet Admission/Clinic Administered Medications as of 03/14/18: lactated ringers infusion Problem List: Routine gynecological examination [Z01.419] Asthma [J45.909] Kidney laceration [S37.039A] Colon polyps [K63.5] Personal history of colonic polyps [Z86.010] Cystocele, midline [N81.11] Postmenopausal atrophic vaginitis [N95.2] Symptomatic menopausal or female climacteric states [N95.1] Allergies: Contrast Dye [Other] Latex Zithromax [Azithromycin] Date Verified: 03/14/18 Lab Values No results within the last 30 days for the following basenames: K,HCT Progress Notes ([facility]): Harsha Drake Surg Coord 03/02/2018 2:47 PM Signed 1 failed attempt left message needs scheudled EGD at the [facility] Harsha Drake Surg Coord Hanna Vernon Psr 03/02/2018 2:52 PM Signed Patient called back please return her call Harsha Vidal Surg Coord 03/02/2018 3:26 PM Signed 03-02-2018 EGD [facility] Harsha Drake Surg Coord Progress Notes ([facility]): Pravin Mcdonald MD 03/06/2018 10:01 AM Signed HISTORY AND PHYSICAL Kimber W Amna 1950 REFERRING PHYSICIAN: Self CHIEF COMPLAINT: Consult (hernia) HPI: The patient is a 67 year old female referred for endoscopy. Kimber notes discomfort in her lower abdomen and heartburn symptoms. The patient's noted. This vague lower abdominal pain for some time. She underwent a CT scan of the abdomen and pelvis at [facility] August 2017 which demonstrated a small hiatal hernia. A renal cyst, a very small umbilical hernia and some renal abnormalities including a left peripelvic renal cyst and left extrarenal pelvis. I performed colonoscopy March 19, 2016. This was unremarkable and I recommended 10 year follow-up colonoscopy. The patient notes the following upper complaints: Kimber notes abdominal pain. The pain occurs in the following locations: epigastric region . Kimber notes heartburn. Kimber notes dysphagia. Kimber denies a history of ulcers/ peptic ulcer disease. The patient is being seen by me today at the request of MARY KAY Schrader for my opinion and advice regarding abdominal pain, heartburn, after drinking water. PAST MEDICAL HISTORY Diagnosis Date - Cystocele, midline 2010 - Essential hypertension, benign - Mitral valve disorders - Personal history of colonic polyps - PMH - PAST MEDICAL HISTORY OF Has Tennis elbow Right elbow - Postmenopausal atrophic vaginitis - RA (rheumatoid arthritis) (HCC) - Symptomatic menopausal or female climacteric states PAST SURGICAL HISTORY Procedure Laterality Date - COLONOSCOP W/ OR W/O [facility] SPEC 10/21/10 Normal - COLONOSCOP W/ OR W/O [facility] SPEC 03/19/16 normal - 10 year follow up - COLONOSCOPY 2004 - CYSTO.PANENDO 04/19 Cystoscopy for torn kidney with fall. No surg - PAST SURGICAL HISTORY OF Right knee surgery - PAST SURGICAL HISTORY OF 2007 Heart Catheterization - PAST SURGICAL HISTORY OF April 2010 Scope- Tore Kidney Current Outpatient Prescriptions: calcium carbonate/vitamin D3 (CALCIUM+D ORAL) Take 1,200 mg by mouth once daily. FOLIC ACID ORAL Take by mouth. methotrexate 2.5 mg tablet Take by mouth one time only. TURMERIC (CURCUMIN MISC) BIOTIN ORAL Take by mouth. MULTIVITAMIN ORAL Take by mouth. atorvastatin (LIPITOR) 10 mg tablet VITAMIN D 50,000 unit capsule lisinopril (ZESTRIL, PRINIVIL) 10 mg tablet No current facility-administered medications for this visit. 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 Social History Main Topics Smoking status: Former Smoker Packs/day: 0.00 Years: 0.00 Smokeless tobacco: Never Used Comment: quit as a teen Alcohol use: No Drug use: No Sexual activity: Yes Partners with: Male control/protection: Other Comment: Postmenopausal FAMILY HISTORY: FAMILY HISTORY Problem Relation Age of Onset - None Mother - Heart Father SD late in life - Cancer Father MELANOMA - Alzheimer's Disease Maternal Grandmother - Hypertension Brother - Coronary Artery Disease Other no premature - Colon Cancer Other none - Hypertension Brother REVIEW OF SYMPTOMS: The review of systems data was entered by the nurse and reviewed by me There are no exam notes on file for this visit. PHYSICAL EXAMINATION: General: The patient is 67 year old female, well nourished, well hydrated in no acute distress. The patient is oriented to time, place, and person. VITALS: Blood pressure 140/80, pulse 76, temperature 37.3 ?C (99.2 ?F), weight 68.9 kg (152 lb), last menstrual period 04/29/2006. Body mass index is 24.53 kg/m?. HEENT: Normal cephalic, ataumatic, pupils are equally round, sclera are anicteric, mucous membranes are moist, oropharynx is clear. Neck has no masses, asymmetry or lymphadenopathy. Thyroid is unremarkable. Respiratory: Clear to auscultation and percussion. Normal respiratory excursion and pattern. Cardiac: Examination is regular rate and rhythm. Abdominal exam: Soft, nontender, with no palpable masses. No hepatosplenomegaly. No palpable hernias. Rectal exam: exam deferred Extremities: no clubbing, cyanosis or edema. No adenopathy. Other: LABORATORY VALUES: As Noted RADIOLOGIC STUDIES: As Noted Assessment IMPRESSION: Abdominal pain, normal recent colonoscopy, relatively unremarkable CT scan PLAN: I plan to perform upper endoscopy. We discussed the risks and benefits of the planned endoscopy. I have informed the patient that complications can occur including failure to complete the endoscopy and perforation. The patient had the opportunity to ask questions concerning the planned endoscopy. My staff has also explained the procedure to the patient in understandable terms and has given the patient printed material concerning the procedure. The patient freely consents to surgery. Diagnoses: (R13.10) Dysphagia, unspecified type (primary encounter diagnosis) (R10.9) Abdominal pain, unspecified abdominal location A letter was sent to MARY KAY Schrader indicating the above finding for this patient. Return to Clinic: The patient is instructed to follow-up with me after the testing has been completed. Pravin Mcdonald MD PROGRESS Observed: 12/29/2017 Status: COMPLETED Source: [place] 8:28 AM [facility] REPOSITORY HNO ID: [id number] Author: Shanika Comer Psberna Service: (none) Author Type: (none) Type: Progress Notes Filed: 12/29/2017 8:28 AM Note Text: pap logged, letter sent. Shanika Comer Psr BD DXA - AXIAL Observed: 12/21/2017 Status: F Source: [facility] 2:50 PM [facility] REPOSITORY * * *Final Report* * * DATE OF EXAM: Dec 21 2017 2:50PM [facility] 0804 - BD DXA - AXIAL SKELETON B / PROCEDURE REASON: Encounter for screening for osteoporosis * * * * Physician Interpretation * * * * PROCEDURE: BD DXA - AXIAL SKELETON INDICATION: Encounter for screening for osteoporosis TECHNIQUE: Low dose AP spine and hip images COMPARISON: LUMBAR SPINE: The bone mineral density from L1 through L4 is 0.810 grams per square centimeter which yields a T-score of -2.2. . LEFT HIP: The bone mineral density of the total region of the hip is 0.864 grams per square centimeter which yields a T-score of -0.6. . LEFT FEMORAL NECK: The bone mineral density of the femoral neck is 0.639 grams per square centimeter which yields a T-score of -1.9. . RIGHT HIP: The bone mineral density of the total region of the hip is 0.832 grams per square centimeter which yields a T-score of -0.9. . RIGHT FEMORAL NECK: The bone mineral density of the femoral neck is 0.678 grams per square centimeter which yields a T-score of -1.5. . 10-year Fracture Risk (FRAX): Major osteoporotic fracture risk 11% Hip fracture risk 1.6% IMPRESSION: Osteopenia in the lumbar spine and both femoral necks. [facility] ORG. CLASSIFICATION OF BONE MASS CLASSIFICATION T-SCORE Normal Greater than -1 Low Bone Mass Between -1 and -2.5 (Osteopenia) Osteoporosis Less than or equal to -2.5 Elevator Constructor: NIKOLAS Transcribe Date/Time: Dec 21 2017 3:15P Dictated by : JUNIOR MORRIS MD This examination was interpreted and the report reviewed and electronically signed by: JUNIOR MORRIS MD on Dec 21 2017 3:16PM EST [id number] PROGRESS Observed: 12/21/2017 Status: COMPLETED Source: [place] 2:30 PM [facility] REPOS[facility] HNO ID: [id number] Author: Rishi Pinto (Rt) Service: (none) Author Type: [place] Type: Progress Notes Filed: 12/21/2017 2:50 PM Note Text: Radiology Service Progress Note PATIENT NAME: Kimber Woo DATE OF SERVICE: December 21, 2017 TIME: 2:30 PM PATIENT IDENTITY VERIFICATION COMPLETED USING TWO (2) METHODS: Patient confirmed name verbally and Date of . PATIENT GENDER DATA: Female. status: : No status: NO. PATIENT RELEVANT IMPLANT DATA REVIEWED: Not Applicable RADIOLOGY DEPARTMENT: Women[facility] bone density PERIPHERAL IV DATA: Not applicable SIGNED BY: RT Blair December 21, 2017 2:30 PM CNCO Observed: 12/16/2017 Status: COMPLETED Source: [place] 12:22 PM [facility] REPOS[facility] HNO ID: [id number] Author: Mammography Coordinator Service: (none) Author Type: Physician Type: Letter Filed: 12/19/2017 11:33 PM Note Text: December 16, 2017 PID: [id number] Kimber Woo [address] [place] [address] Dear Ms. Woo, We are pleased to inform you that the results of your recent breast imaging exam on 12/16/2017 are normal. Your mammogram demonstrates that you have dense breast tissue, which could hide abnormalities. Dense breast tissue, in and of itself, is a relatively common condition. Therefore, this information is not provided to cause undue concern; rather, it is to raise your awareness and promote discussion with your health care provider regarding the presence of dense breast tissue in addition to other risk factors. Early detection of cancer is very important. We also understand recommendations regarding breast cancer screening are controversial. Please discuss with your primary care provider which strategy is best for you and whether a mammogram is right for you. Your imaging studies and report will be kept on file at [facility] as part of your permanent medical record and are available for your continuing care. Thank you for allowing us to help in meeting your health care needs. Sincerely, Dr. Gonzalez Interpreting Radiologist [facility] [[email or web address]] (Normal over 40) HPV W/GENOTYPE Collected: 12/16/2017 Status: F Source: [place] 10:16 AM [facility] REPOSITORY TYPE CODE TESTS RESULT OUT OF REFERENCE UNITS RANGE LAB HPVT16 HPV HighRisk Negative for Type 16 HPV DNA high risk type 16 by PCR. LAB HPVT18 HPV HighRisk Negative for Type 18 HPV DNA high risk type 18 by PCR. LAB HPVHRO HPV HighRisk Negative for Other HPV DNA high risk types: 31,33,35,39,45 ,51,52,56,58,5 9,66,68 by PCR. Result Comment: This test was developed and its performance characteristics determined by [facility]'s [facility] ([facility]). It has not been cleared or approved by the FDA. [facility] is regulated under CLIA as qualified to perform high-complexity testing. This test is used for clinical purposes. It should not be regarded as inv estigational or for research. Performed By: #### HPVHRR #### [facility] [address], [place] [address] CYTOLOGY Observed: 12/16/2017 Status: C Source: [place] 10:16 [facility] REPOSITORY ADDITIONAL PROCEDURES PRESENT Specimen originated from [facility] Specimen #: [id number] Submitting Physician: MAR PACHECO MD SPECIMEN SUBMITTED A: CERVICAL, SCREENING, FLUID FINAL DIAGNOSIS A. CERVICAL, SCREENING, FLUID Satisfactory for interpretation. Negative for intraepithelial lesion or malignancy. Atrophic specimen. This specimen has been analyzed by the ThinPrep Imaging System, an automated imaging and review system, which assists the laboratory in evaluating cells on ThinPrep Pap tests. Following automated imaging, selected saurez from every slide are reviewed by a echocardiologist. CANDY Juárez (ASCP) (Electronic Signature) ADDITIONAL PROCEDURE(S) HUMAN PAPILLOMA VIRUS Date Ordered: 12/19/2017 Date Reported: 12/20/2017 Procedure Results and Interpretation Negative for HPV DNA high risk type 16 by PCR. Negative for HPV DNA high risk type 18 by PCR. Negative for HPV DNA high risk types: 31,33,35,39,45,51,52,56,58,59,66,68 by PCR. This test was developed and its performance characteristics determined by [facility] ([facility]). It has not been cleared or approved by the FDA. [facility] is regulated under CLIA as qualified to perform high-complexity testing. This test is used for clinical purposes. It should not be regarded as investigational or for research. CLINICAL DATA ROUTINE EXAM, HPV Testing: Yes, automatic HPV patients over 30 Date of Last Menstrual Period: 04/29/2006 Menstrual History: Post-Menopausal STAINS A: CERVICAL, SCREENING, FLUID THIN PREP TECHNICAL COMMUNICATOR Francisca Mills M.D., Administrative Receptionist Date of Report: 12/28/2017 Date of Procedure: 12/16/2017 Date of Receipt: 12/19/2017 Submitted by: MAR PACHECO MD Location: [facility] Diagnostic interpretation performed at [facility], [address] [place] [address]. The Pap Smear is a screening test for cervical cancer. False negative results occur with all screening tests, emphasizing the need for rescreening at recommended intervals, and clinical correlation. PROGRESS Observed: 12/16/2017 Status: COMPLETED Source: [place] 10:07 AM [facility] REPOS[facility] HNO ID: [id number] Author: Mar Pacheco Service: (none) Author Type: Physician Type: Progress Notes Filed: 12/16/2017 10:17 AM Note Text: Kimber Woo is a 67 year old who presents for her annual gynecologic exam without complaints. She has some abdominal pain near her ribs that is being evaluated by her pcp. Postmenopausal: Yes HRT use: No. Last Pap: 2012 normal HPV: n/a History of abnormal pap: No Last mammogram: today Obstetric History T0 L2 SAB0 TAB0 Ectopic0 Multiple0 Live Births0 PAST MEDICAL HISTORY Diagnosis Date - Cystocele, midline 2010 - Essential hypertension, benign - Mitral valve disorders - Personal history of colonic polyps - PMH - PAST MEDICAL HISTORY OF Has Tennis elbow Right elbow - Postmenopausal atrophic vaginitis - RA (rheumatoid arthritis) (HCC) - Symptomatic menopausal or female climacteric states PAST SURGICAL HISTORY Procedure Laterality Date - COLONOSCOP W/ OR W/O BRSH SPEC 10/21/10 Normal - COLONOSCOP W/ OR W/O [facility] SPEC 03/19/16 normal - 10 year follow up - COLONOSCOPY 2004 - CYSTO.PANENDO 04/19 Cystoscopy for torn kidney with fall. No surg - PAST SURGICAL HISTORY OF Right knee surgery - PAST SURGICAL HISTORY OF 2007 Heart Catheterization - PAST SURGICAL HISTORY OF April 2010 Scope- Tore Kidney FAMILY HISTORY Problem Relation Age of Onset - None Mother - Heart Father SD late in life - Cancer Father MELANOMA - Alzheimer's Disease Maternal Grandmother - Hypertension Brother - Coronary Artery Disease Other no premature - Colon Cancer Other none - Hypertension Brother SOCIAL HISTORY Social History Substance Use Topics - Smoking status: Former Smoker - Smokeless tobacco: Never Used Comment: quit as a teen - Alcohol use No REVIEW OF SYSTEMS Abdomen: No abdominal pain, nausea, vomiting, diarrhea, or constipation. No bloating, early satiety, indigestion, or increased flatulence. Bladder: No dysuria, gross hematuria, urinary urgency, or incontinence; urinary frequency Breast: No breast lumps, nipple d/c, overlying skin changes, redness or skin retraction Allergies and current medication updated:Yes EXAM: BP 118/68 Ht 5' 6 (1.68m) Wt 154 lb 9.6 oz (70.1kg) LMP 04/29/2006 BMI 24.96 kg/(m2). GENERAL: pleasant, female in no apparent distress BREAST: soft, non-tender, symmetric, no dominant mass, normal nipple-areolar complex, no lymphadenopathy and no nipple discharge CHEST: Normal inspiratory effort ABDOMEN: soft, non-tender and no masses PELVIC: external genitalia normal, no vulvar lesions, no cervical lesions, normal appearing perineal body and perianal region; cystocele BIMANUAL: uterus normal size, shape and consistency, no adnexal masses and non-tender RECTOVAGINAL: rectovaginal exam negative for any masses or nodularity. NEURO: alert and oriented x3,exam grossly non-focal EXTREMITIES: normal ASSESSMENT/PLAN: 1) Health maintenance: Pap done with HPV. Mammogram today Nutrition, exercise and routine health maintenance exams reviewed. Colon cancer screening: up to date with screening BMD: ordered 2) Follow up one year or sooner as needed 3) Upper abdominal pain - being evaluated by pcp, patient may see as well. Very unlikely to be pump servicer in origin. Patient will call if develops pain in the lower abdomen as would then proceed with a pelvic US. Mar Pacheco MD CNOV Observed: 12/16/2017 Status: COMPLETED Source: [place] 9:40 AM [facility] REPOSITORY Office Visit (WOOB) AMNAKIMBER ([id number]) 1950 F Date Time Provider Department 12/16/17 9:40 AM MAR PACHECO During your visit today, we recorded the following information about you: Blood pressure Weight Height 118/68 70.1 kg 1.676 m Mar Pacheco MD 12/16/2017 10:17 AM Signed See other note Yadi Quiñonez Ma 12/16/2017 9:22 AM Signed Crop Picker offered: Patient declines. Mar Pacheco MD 12/16/2017 9:58 AM Signed BONE MINERAL DENSITY PATIENT INSTRUCTIONS Bone mineral density testing measures the amount of calcium in certain parts of your bones. This information determines how strong your bones are. The test is used to detect osteoporosis, a disease in which the bone's mineral content and density are low, increasing a person's risk of fractures. The lumbar spine (lower back) and the hip are the skeletal sites usually examined. For the test, remember that: 1. You cannot take this test if you are . 2. Eat a normal diet on the day of the test. 3. Take your medications as you normally would. 4. DO NOT take calcium supplements (such as Tums) for 24 hours before the test. 5. On the day of the test, leave valuables (jewelry or credit cards) at home. 6. The test should be performed prior to oral, rectal or IV contrast studies, or at least 7 days after any of these studies. For the test, you may be asked to wear a hospital gown. You will lie on your back, on a padded table, in a comfortable position. Generally, you can resume your usual activities immediately. Mar Pacheco MD 12/16/2017 10:17 AM Signed Kimber Woo is a 67 year old who presents for her annual gynecologic exam without complaints. She has some abdominal pain near her ribs that is being evaluated by her pcp. Postmenopausal: Yes HRT use: No. Last Pap: 2012 normal HPV: n/a History of abnormal pap: No Last mammogram: today Obstetric History T0 L2 SAB0 TAB0 Ectopic0 Multiple0 Live Births0 PAST MEDICAL HISTORY Diagnosis Date - Cystocele, midline 2010 - Essential hypertension, benign - Mitral valve disorders - Personal history of colonic polyps - PMH - PAST MEDICAL HISTORY OF Has Tennis elbow Right elbow - Postmenopausal atrophic vaginitis - RA (rheumatoid arthritis) (HCC) - Symptomatic menopausal or female climacteric states PAST SURGICAL HISTORY Procedure Laterality Date - COLONOSCOP W/ OR W/O [facility] SPEC 10/21/10 Normal - COLONOSCOP W/ OR W/O [facility] SPEC 03/19/16 normal - 10 year follow up - COLONOSCOPY 2004 - CYSTO.PANENDO 04/19 Cystoscopy for torn kidney with fall. No surg - PAST SURGICAL HISTORY OF Right knee surgery - PAST SURGICAL HISTORY OF 2007 Heart Catheterization - PAST SURGICAL HISTORY OF April 2010 Scope- Tore Kidney FAMILY HISTORY Problem Relation Age of Onset - None Mother - Heart Father SD late in life - Cancer Father MELANOMA - Alzheimer's Disease Maternal Grandmother - Hypertension Brother - Coronary Artery Disease Other no premature - Colon Cancer Other none - Hypertension Brother SOCIAL HISTORY Social History Substance Use Topics - Smoking status: Former Smoker - Smokeless tobacco: Never Used Comment: quit as a teen - Alcohol use No REVIEW OF SYSTEMS Abdomen: No abdominal pain, nausea, vomiting, diarrhea, or constipation. No bloating, early satiety, indigestion, or increased flatulence. Bladder: No dysuria, gross hematuria, urinary urgency, or incontinence; urinary frequency Breast: No breast lumps, nipple d/c, overlying skin changes, redness or skin retraction Allergies and current medication updated:Yes EXAM: BP 118/68 Ht 5' 6ANDquot; (1.68m) Wt 154 lb 9.6 oz (70.1kg) LMP 04/29/2006 BMI 24.96 kg/(m2). GENERAL: pleasant, female in no apparent distress BREAST: soft, non-tender, symmetric, no dominant mass, normal nipple-areolar complex, no lymphadenopathy and no nipple discharge CHEST: Normal inspiratory effort ABDOMEN: soft, non-tender and no masses PELVIC: external genitalia normal, no vulvar lesions, no cervical lesions, normal appearing perineal body and perianal region; cystocele BIMANUAL: uterus normal size, shape and consistency, no adnexal masses and non-tender RECTOVAGINAL: rectovaginal exam negative for any masses or nodularity. NEURO: alert and oriented x3,exam grossly non-focal EXTREMITIES: normal ASSESSMENT/PLAN: 1) Health maintenance: Pap done with HPV. Mammogram today Nutrition, exercise and routine health maintenance exams reviewed. Colon cancer screening: up to date with screening BMD: ordered 2) Follow up one year or sooner as needed 3) Upper abdominal pain - being evaluated by pcp, patient may see as well. Very unlikely to be pump servicer in origin. Patient will call if develops pain in the lower abdomen as would then proceed with a pelvic US. MD Shanika Rodriguez Psr 12/29/2017 8:28 AM Signed pap logged, letter sent. Shanika Comer Psr Referring Provider: SELF [200] Allergies As of Date: 12/16/2017 Noted Allergy Reaction Contrast Dye [Other] 08/04/2010 4 - Hives LATEX 02/26/2016 14 - Other: See Comments Comments: Sores in mouth from dentist ZITHROMAX (AZITHROMYCIN) 11/03/2005 8 - GI Upset Date Reviewed: 12/16/2017 Reviewed by: Mar Pacheco - Fully Assessed Reason for Visit: Yearly Exam [187] Primary Visit Diagnosis:Encounter for gynecological examination without abnormal finding [Z01.419] Other Visit Diagnoses:Encounter for screening mammogram for malignant neoplasm of breast [Z12.31] Encounter for screening for osteoporosis [Z13.820] Screening for malignant neoplasm of cervix [Z12.4] Special screening examination for human papillomavirus (HPV) [Z11.51] Order(s):JUANCARLOS SCREENING [5296009] Order #: [id number] FUTURE DXA-AXIAL SKELETON [1213617] Order #: [id number] FUTURE PAP FLUID CERVICAL SCREENING [0541876] Order #: [id number]. #:[id number] HPV W/GENOTYPE [SQHPVHRR] Order #: [id number]. #:[id number] Prescriptions as of 12/16/2017 Sig: FOLIC ACID ORAL Take by mouth. METHOTREXATE SODIUM 2.5 MG TA* Take by mouth one time only. CURCUMIN MISC BIOTIN ORAL Take by mouth. MULTIVITAMIN ORAL Take by mouth. ATORVASTATIN 10 MG TABLET VITAMIN D2 50,000 UNIT CAPSULE LISINOPRIL 10 MG TABLET Medication notes this encounter HYDROXYCHLOROQUINE 200 MG TABLET >> Yadi Masters Ma 12/16/2017 9:15 AM >> MASTERS BEVERLY YADI TueDec 16, 2017 9:15 AM Not taking BENZONATATE 100 MG CAPSULE >> Yadi Masters Ma 12/16/2017 9:15 AM >> MASTERS MA YADI TueDec 16, 2017 9:15 AM Not taking CELECOXIB 100 MG CAPSULE >> Yadi Masters Ga 12/16/2017 9:15 AM >> MASTERS MA YADI TueDec 16, 2017 9:15 AM Not taking More... Problem List As Of Date 12/16/2017 Noted Resolved Routine gynecological examination [Z01.419] INVALID FOR* Priority: B Class: Chronic More... Asthma [J45.909] INVALID FOR* Priority: A More... Kidney laceration [S37.039A] INVALID FOR* More... Colon polyps [K63.5] INVALID FOR* More... Personal history of colonic polyps [Z86.010] INVALID FOR* Cystocele, midline [N81.11] INVALID FOR* Postmenopausal atrophic vaginitis [N95.2] INVALID FOR* Symptomatic menopausal or female climacteric st*INVALID FOR* Other instructions from your clinician: BONE MINERAL DENSITY PATIENT INSTRUCTIONS Bone mineral density testing measures the amount of calcium in certain parts of your bones. This information determines how strong your bones are. The test is used to detect osteoporosis, a disease in which the bone's mineral content and density are low, increasing a person's risk of fractures. The lumbar spine (lower back) and the hip are the skeletal sites usually examined. For the test, remember that: 1. You cannot take this test if you are . 2. Eat a normal diet on the day of the test. 3. Take your medications as you normally would. 4. DO NOT take calcium supplements (such as Tums) for 24 hours before the test. 5. On the day of the test, leave valuables (jewelry or credit cards) at home. 6. The test should be performed prior to oral, rectal or IV contrast studies, or at least 7 days after any of these studies. For the test, you may be asked to wear a hospital gown. You will lie on your back, on a padded table, in a comfortable position. Generally, you can resume your usual activities immediately. Visit Notes: >> Yadi Quiñonez Ma TueDec 16, 2017 9:21 AM Status: Signed Crop Picker offered: Patient declines. Medications Discontinued During This Encounter hydroxychloroquine (PLAQUENIL) 200 m* 12/16/2017 Class: Historical Med Route: ORAL Sig: Take by mouth once daily. Disc: Discontinued by Patient benzonatate (TESSALON PERLE) 100 mg * 60 c* 0 12/04/2016 12/16/2017 Route: ORAL Sig: Take 2 capsules by mouth three times daily as needed. Disc: Discontinued by Patient celecoxib (CELEBREX) 100 mg capsule 12/16/2017 Class: Historical Med Route: ORAL Sig: Take 100 mg by mouth twice daily. Disc: Discontinued by Patient meloxicam (MOBIC) 15 mg tablet 09/07/2016 12/16/2017 Class: Historical Med Sig: Disc: Discontinued by Patient Disposition: Return in about 1 year (around 12/16/2018) for Routine TECHNICAL COMMUNICATOR exam. Follow-up and Disposition History Recorded Letter [facility] [address] [place], [place] [address] Kimber Woo [facility] [address] 12/29/2017 [facility]: [id number] Dear Kimber, We are pleased to inform you that your recent Pap Test was within normal limits. Because Pap tests are so effective in the early detection of cervical cancer, you are encouraged to continue having the test at regular intervals. You will be due for a 1 year Gynecological Exam after this date 12/16/2018. If you have any questions regarding the above information, do not hesitate to call our office at between the hours of 8:00 a.m. and 5:00 p.m. Sincerely, Mar Pacheco MD Encounter Status:Closed by MAR PACHECO MD on 12/16/17 PROGRESS Observed: 12/16/2017 Status: COMPLETED Source: [place] 9:09 AM [facility] REPOSITORY HNO ID: [id number] Author: Mar Pacheco Service: (none) Author Type: Physician Type: Progress Notes Filed: 12/16/2017 10:17 AM Note Text: See other note JUANCARLOS SCREENING Observed: 12/16/2017 Status: F Source: [place] 8:58 AM [facility] REPOSITORY * * *Final Report* * * DATE OF EXAM: Dec 16 2017 8:58AM [facility] 0581 - [facility] SCREENING / PROCEDURE REASON: Encounter for screening mammogram for malignant neoplasm of breast * * * * Physician Interpretation * * * * RESULT: #[id number] - [facility] SCREENING BILATERAL DIGITAL SCREENING MAMMOGRAM WITH CAD: 12/16/2017 HISTORY: Encounter For Screening Mammogram For Malignant Neoplasm Of Breast\ Screening Mammogram - patient reports NO breast symptoms /priors available for comparison. RESULT: TECHNIQUE: The study was acquired using full field digital technology and interpreted from soft copy. Current study was also evaluated with a Computer Aided Detection (CAD). Comparison is made to exams dated: 11/04/2016 mammogram, 10/20/2015 mammogram, and 10/18/2014 mammogram - [facility]. The tissue of both breasts is heterogeneously dense. This may lower the sensitivity of mammography. No significant masses, calcifications, or other findings are seen in either breast. There has been no significant interval change. IMPRESSION: NEGATIVE There is no mammographic evidence of malignancy.A 1 year screening mammogram is recommended. Elvia Gonzalez M.D., mc/drew:12/16/2017 12:22:43 Service Greeter: Winnie HAINES(Berna)(Meenakshi), [facility] letter sent: Normal over 40 Mammogram BI-RADS: 1 Negative Elevator Constructor: Drew Transcribe Date/Time: Dec 16 2017 8:59A Dictated by: ELVIA BARKSDALE MD This examination was interpreted and the report reviewed and electronically signed by: ELVIA BARKSDALE MD on Dec 16 2017 12:22PM EST [id number] COMPREHENSIVE METABOLIC Collected: 12/12/2017 Status: F Source: [place] PROFIL 7:45 AM [facility] REPOSITORY TYPE CODE TESTS RESULT OUT OF RANGE REFERENCE UNITS LAB L501.0100 74-106 mg/dL Normal GLU 81 Result Comment: Please note revised GLUCOSE reference range effective 2017. LAB L501.1000 7-18 mg/dL Normal BUN 14 LAB L501.1100 0.55-1.02 mg/dL Normal CREAT,SERUM 0.72 Result Comment: The validity of the calculated GFR AND GFRAA in patients over 70 years has not been determined. Clinical correlation is essential. LAB L501.1110 >60 mL/min Normal EST GFR 87 Result Comment: Non- GFR Calc LAB L501.1115 >60 mL/min Normal EST GFR - AA 105 Result Comment: GFR Calc LAB L501.1300 10-20 RATIO Normal BUN/CRE 19.6 LAB L501.1500 6.4-8.2 g/dL T Normal PROT 7.2 LAB L501.1800 3.2-5.0 g/dL Normal ALB 3.9 LAB L501.1950 2.2-4.2 g/dL Normal GLOB 3.3 LAB L501.2000 0.9-2.4 RATIO Normal A/G 1.2 LAB L501.2200 8.5-10.1 mg/dL Low CA 8.4 LAB L501.4100 15-37 U/L Normal AST 22 LAB L501.4305 45-117 U/L Normal ALK P 99 LAB L501.4405 13-56 U/L Normal ALT 30 Result Comment: Please note revised ALT reference range effective 2017. LAB L501.4600 0.20-1.00 mg/dL Normal T BILI 0.80 LAB L501.5300 136-145 mmol/L Normal NA 142 LAB L501.5600 3.5-5.1 mmol/L Normal K 4.1 LAB L501.5900 98-107 mmol/L Normal CL 107 LAB L501.6100 21.0-32.0 mmol/L Normal CO2 32.0 LAB L501.6200 5-15 Low GAP 3 Performed By: #### L500.4050 #### [facility] [address] [place], [address] CBC W/DIFF, AUTOMATED Collected: 12/12/2017 Status: F Source: [place] 7:45 AM [facility] REPOSITORY TYPE CODE TESTS RESULT OUT OF RANGE REFERENCE UNITS LAB L100.1000 4.4-11.0 K/mm3 Low WBC 4.3 LAB L100.1200 4.2-5.4 M/mm3 Normal RBC 4.44 LAB L100.1300 12.0-15.0 g/dl Normal HGB 13.4 LAB L100.1400 37-47 % Normal HCT 40.0 LAB L100.1500 81-99 fL Normal MCV 90.1 LAB L100.1600 27.0-32.0 pg Normal MCH 30.2 LAB L100.1700 32-36 g/gl Normal MCHC 33.5 LAB L100.1810 11.6-14.6 % Normal RDW CV 12.7 LAB L100.1820 35.1-43.9 fl Normal RDW SD 41.6 LAB L100.1900 150-450 K/mm3 Normal PLT 206 LAB L100.2000 6.2-12.0 fl Normal MPV 10.1 LAB L100.2100 47-70 % Normal NEUT% 54.2 LAB L100.2200 19-41 % Normal LY% 28.8 LAB L100.2300 0-10 % High MONO% 13.3 LAB L100.2400 0-5 % Normal EO% 3.5 LAB L100.2500 0-1 % Normal BASO% 0.2 LAB L100.2550 0.0-0.9 % Normal IM GRAN % 0.000 Result Comment: IG% - Immature Granulocytes (promyelocytes, myelocytes and metamyelocytes) > 1% indicates that a LEFT SHIFT is Present. LAB L100.2620 2.0-7.7 X10 3/uL Normal Absolute Neut 2.3 LAB L100.2720 0.83-4.51 X10 3/ul Normal Absolute Lymph 1.24 Performed By: #### L100.0100 #### [facility] [address] [place], [address] .GFR Collected: 11/28/2017 Status: F Source: [facility]! 8:15 AM [facility] REPOSITORY TYPE CODE TESTS RESULT OUT OF REFERENCE UNITS RANGE LAB GFRAA(LOINC ml/min/1.73 ) sqm GFR 95 Dominican Result Comment: GFR Population mean for , Non- Americans Ages 20-29 = 116 mL/min/1.73 sq.m. Ages 30-39 = 107 mL/min/1.73 sq.m. Ages 40-49 = 99 mL/min/1.73 sq.m. Ages 50-59 = 93 mL/min/1.73 sq.m. Ages 60-69 = 85 mL/min/1.73 sq.m. Ages 70+ = 75 mL/min/1.73 sq.m. Chronic Kidney Disease: Less than 60 mL/min/1.73 square meters End Stage Renal Disease: Less than 15 mL/min/1.73 square meters LAB GFRNO(LOINC) ml/min/1.73sqm GFR Non- >60 Result Comment: GFR Population mean for , Non- Americans Ages 20-29 = 116 mL/min/1.73 sq.m. Ages 30-39 = 107 mL/min/1.73 sq.m. Ages 40-49 = 99 mL/min/1.73 sq.m. Ages 50-59 = 93 mL/min/1.73 sq.m. Ages 60-69 = 85 mL/min/1.73 sq.m. Ages 70+ = 75 mL/min/1.73 sq.m. Chronic Kidney Disease: Less than 60 mL/min/1.73 square meters End Stage Renal Disease: Less than 15 mL/min/1.73 square meters Performed By: #### GFR, CMP, LIPID, CBC, ADIFF, ANEU, TSH, FT4 #### [place] [id number] [place], [place] [address] #### VIDH #### [address] [address] CMP Collected: 11/28/2017 Status: F Source: [facility]! 8:15 AM [facility] REPOSITORY TYPE CODE TESTS RESULT OUT OF REFERENCE UNITS RANGE LAB 1547-9 80-115 mg/dL GLUCOSE 93 LAB NA(LOINC) 136-146 mEq/L Sodium Level 141 LAB K(LOINC) 3.5-5.1 mEq/L Potassium Level 4.6 LAB CL(LOINC) 98-107 mEq/L Chloride 102 LAB CO2(LOINC) 23-31 mEq/L CO2 31 LAB EBAL(LOINC mEq/L ) Electrolyte Balance 8.0 LAB BUN(LOINC) 7.0-18.0 mg/dL BUN 14.9 LAB CRE(LOINC) 0.6-1.2 mg/dL Creatinine Lvl (s) 0.7 LAB BC(LOINC) 7-27 ratio BUN/Creatinine 21 Ratio LAB CA(LOINC) 8.4-10.2 mg/dL Calcium Lvl 9.4 LAB PROT(LOINC 6.0-8.3 G/dL ) Total Protein 6.8 LAB ALB(LOINC) 3.4-4.8 G/dL Albumin Level 4.6 LAB GLB(LOINC) G/dL Globulin 2.2 LAB AG(LOINC) 1.1-2.5 ratio A/G Ratio 2.1 LAB BILT(LOINC 0.2-1.0 mg/dL ) Bili Total 0.7 LAB AP(LOINC) 40-135 IU/L Alk Phos 96 LAB AST(LOINC) 10-40 IU/L AST/SGOT 27 LAB ALT(LOINC) 10-35 IU/L ALT/SGPT 30 Performed By: #### GFR, CMP, LIPID, CBC, ADIFF, ANEU, TSH, FT4 #### [address] [address] #### VIDH #### [address] [address] LIPID Collected: 11/28/2017 Status: F Source: [facility] 8:15 AM [facility] TYPE CODE TESTS RESULT OUT OF REFERENCE UNITS RANGE LAB CHOL(LOINC 131-200 mg/dL ) Cholesterol 165 Result Comment: Cholesterol Reference Interval: Less than 200 Desirable 200-239 Borderline high risk 240 and above High risk LAB TRIG(LOINC) 40-150 mg/dL Triglycerides 84 Result Comment: Triglyceride Reference Interval: Less than 150 Normal 150-199 Borderline high risk 200-499 High risk 500 or higher Very high risk LAB HD(LOINC) 35-90 mg/dL HDL Cholesterol 59 Result Comment: HDL Reference Interval: Less than 40 Low - high risk 60 or above Optimal/lowers risk LAB LDL(LOINC) 0-130 mg/dL LDL Cholesterol 89 Result Comment: LDL is a calculated result and requires a 12-hr fast. LDL Reference Interval: Less than 100 Optimal 100-129 Near or above optimal 130-159 Borderline high risk 160-189 High risk 190 and above Very high risk Performed By: #### GFR, CMP, LIPID, CBC, ADIFF, ANEU, TSH, FT4 #### [address] [address] #### VIDH #### [address] [address] CBC Collected: 11/28/2017 Status: F Source: [facility] 8:15 AM [facility] REPOSITORY TYPE CODE TESTS RESULT OUT OF REFERENCE UNITS RANGE LAB WBC(LOINC) 4.60-10.80 10 3/mcL WBC 5.40 LAB RBCCT(LOINC 4.20-5.40 10 6/mcL ) RBC 4.75 LAB HGB(LOINC) 12.0-16.0 G/dL Hgb 14.1 LAB HCT(LOINC) 37.0-47.0 % Hct 42.3 LAB MCV(LOINC) 80.0-94.0 fL MCV 88.9 LAB MCH(LOINC) 27.0-31.2 pg MCH 29.7 LAB MCHC(LOINC) 33.0-37.0 G/dL MCHC 33.5 LAB RDW(LOINC) 11.5-14.5 % RDW 13.6 LAB PLT(LOINC) 130-400 10 3/mcL Platelet 204 LAB MPV(LOINC) 7.4-10.4 fL MPV 8.4 Performed By: #### GFR, CMP, LIPID, CBC, ADIFF, ANEU, TSH, FT4 #### [address] [address] #### VIDH #### [address] [address] .AUTO DIFF Collected: 11/28/2017 Status: F Source: [facility] 8:15 AM [facility] REPOSITORY TYPE CODE TESTS RESULT OUT OF REFERENCE UNITS RANGE LAB URIEL(LOINC) 37.0-80.0 % Neutrophil % 60.3 LAB LYM(LOINC) 10.0-50.0 % Lymphocyte % 28.7 LAB MON(LOINC) 1.7-13.0 % Monocyte % 7.6 LAB EO(LOINC) 0.0-7.0 % Eosinophil % 2.9 LAB BAS(LOINC) 0.0-2.5 % Basophil % 0.5 LAB ABLYM(LOIN 0.77-3.85 10 3/mcL C) Lymphocyte, 1.50 Absolute LAB MELISSA(LOINC 0.15-1.00 10 3/mcL ) Monocyte, 0.40 Absolute LAB AEOS(LOINC 0.00-0.40 10 3/mcL ) Eosinophil, 0.20 Absolute LAB ABAS(LOINC 0.00-0.19 10 3/mcL ) Basophil, 0.00 Absolute Performed By: #### GFR, CMP, LIPID, CBC, ADIFF, ANEU, TSH, FT4 #### [address] [address] #### VIDH #### [place] [address] .NEUABS Collected: 11/28/2017 Status: F Source: [facility] 8:15 AM [facility] REPOSITORY TYPE CODE TESTS RESULT OUT OF REFERENCE UNITS RANGE LAB ANEU(LOINC) 2.85-6.16 10 3/mcL Neutrophil, 3.30 Absolute Performed By: #### GFR, CMP, LIPID, CBC, ADIFF, ANEU, TSH, FT4 #### [address] [address] #### VIDH #### [place] [address] TSH Collected: 11/28/2017 Status: F Source: [facility] 8:15 AM [facility] REPOSITORY TYPE CODE TESTS RESULT OUT OF RANGE REFERENCE UNITS LAB TSH(LOINC) 0.27-4.20 mcIU/mL TSH 2.15 Performed By: #### GFR, CMP, LIPID, CBC, ADIFF, ANEU, TSH, FT4 #### [address] [address] #### VIDH #### [place] [address] FT4 Collected: 11/28/2017 Status: F Source: [facility] 8:15 AM [facility] REPOSITORY TYPE CODE TESTS RESULT OUT OF RANGE REFERENCE UNITS LAB FT4(LOINC) 0.6-1.7 ng/mL Free T4 0.9 Result Comment: Below normal(expected)range Performed By: #### GFR, CMP, LIPID, CBC, ADIFF, ANEU, TSH, FT4 #### [address] [address] #### VIDH #### [place] [address] VIDH Collected: 11/28/2017 Status: F Source: [facility] 8:15 AM [facility] REPOSITORY TYPE CODE TESTS RESULT OUT OF RANGE REFERENCE UNITS LAB VIDH(LOINC) ng/mL Vit. D 52 25-Hydroxy Result Comment: Interpretive Values Based on Total 25(OH)D: Severe Deficiency <20 ng/mL Mild to Moderate Deficiency 20-30 ng/mL Optimum Levels 30-100 ng/mL Toxicity Possible >100 ng/mL Performed By: #### GFR, CMP, LIPID, CBC, ADIFF, ANEU, TSH, FT4 #### [address] [address] #### VIDH #### [place] [id number] ALLERGIES ALLERGIES DATE TYPE / CODE NAME / CODE REACTION SEVERITY SOURCE Drug iodine/[id number] Unknown Unknown [place] 8 Allergy/[id number]( (RXNORM) [facility] Repository Drug azithromycin/F006 Unknown Unknown [place] 8 Allergy/747532576( 535242(RXNORM) [facility]) Hospital Repository Drug latex/[id number]( Unknown Unknown [place] Allergy/521254489( RXNORM) [facility] SN[facility]) Hospital Repository DRUG LATEX OTHER: SEE C [place] 6 INGREDI/[id number]( [facility] SNOMED CT) [place] Repository Miscellaneous OTHER HIVES [place] 0 Allergy/922511590( [facility] SNOMED CT) [place] Repository DRUG AZITHROMYCIN GI UPSET [place] 6 INGREDI/[id number]( [facility] [place] Repository ENCOUNTERS ENCOUNTERS ADMIT/DISCHARGE ACCOUNT NUMBER ADMITTING ENCOUNTER LOCATION SOURCE CLASS 10/26/2018 [id number] Ambulatory [facility] ding:[facility]LAB Repository 10/09/2018/10/09/20 [id number] Ambulatory BBuilding:RA [place] [address] [facility] Repository 08/01/2018 [id number] Ambulatory [facility] ding:[facility]LAB Repository 06/13/2018 [id number] Ambulatory [facility] ding:[facility]LAB Repository 05/29/2018/06/02/20 [id number] Ambulatory KAIDEN [address] ding:[facility] Repository 05/23/2018/05/27/20 [id number] Ambulatory KAIDEN [address] ding:[facility] Repository 04/11/2018/04/11/20 [id number] Ambulatory BMSBuilding: [address] Repository 03/31/2018/04/03/20 [id number] Ambulatory [address] Repository 03/31/2018/04/03/20 [id number] Ambulatory [address] Repository 03/21/2018/03/24/20 [id number] Ambulatory [address] Repository 03/14/2018/03/14/20 [id number] TAMARA, Ambulatory [address] Repository 03/13/2018 [id number] Ambulatory [facility] ding:MTLAB Repository 03/02/2018/03/07/20 [id number] Ambulatory [address] Repository 12/21/2017/12/22/19 [id number] Ambulatory [address] Repository 12/16/2017/12/22/19 [id number] Ambulatory [address] Repository 12/16/2017/12/17/19 [id number] Ambulatory [address] Repository 12/12/2017 [id number] Ambulatory [facility] ding:MTLAB Repository 11/28/2017/12/02/[id number] ding:[facility] Repository PAYERS PAYERS ENCOUNTER GUARANTOR PAYER SUBSCRIBER SOURCE 10/26/2018 FARIHA Louis Primary KIMBER Marti [id number] JACKIE Insurance:ANTHEM COBURNDOB: Community [place] [facility] [address], [place] [address]Bvv: ADVANTAPolicy Number: Repository [id number] () Date:[id number] [address] [place] [address]26[address]QS: 10/26/2018 Secondary NOT GIVENUNK [place] Insurance:SELF PAY [facility] Number: Effective Repository Date:2018-10-26 10/09/2018 KIMBER Huerta Primary [facility] COBURNDOB: Insurance:PAKO WOODOB: [facility] [id number] [facility] [id number] Repository MEJIA Number: 2 JACKIE [facility] [id number] [place], [place] [address]Bay: Date:2018-10-09 - , [place] [address]Zpd: [id number] ()Tel: ([phone]) Name:JOANNA Jitendra () () [address] [place] [address] [place] 000-[address] () [address]ZG: 08/01/2018 FARIHA Louis Primary KIMBER Marti [id number] JACKIE Insurance:ANTHEM COBURNDOB: Community [place] [facility] [address] , [place] [address]Xpt: ADVANTAPolicy Number: Repository [id number] () Date:[id number] [id number] [place] [address]82[address]FM: 08/01/2018 Secondary NOT GIVENUNK [place] Insurance:SELF PAY [facility] Number: Effective Repository Date:2018-08-01 06/13/2018 FARIHA Louis Primary KIMBER Marti [id number] JACKIE Insurance:ANTHEM COBURNDOB: [facility] [id number] [place] [address]Pzb: [facility]ository [id number] (HP) Date:[id number] [address], [place] [address]SC: 06/13/2018 Secondary NOT GIVENUNK [place] Insurance:SELF PAY [facility] Number: Effective Repository Date:2018-06-13 05/29/2018 KIMBER W [facility] COBURNDOB: Insurance:ANTHEM COBURNDOB: [facility] [id number] [facility] [id number] Repository MEJIA Number: 2 JACKIE SURESH [id number] [place], [place] [address]Loi: Date:2018-05-29 - , [place] [address]Mik: [id number] (HP)Tel: ([phone]) Name:[address] (HP) (WP) [phone], [place] 000[address] (WP) [id number]: 05/23/2018 KIMBER W Primary [facility] COBURNDOB: Insurance:ANTHEM COBURNDOB: [facility] [id number] [facility] [id number] Repository MEJIA Number: 2 JACKIE SURESH [id number] [place], [place] [address]Qdp: Date:2018-05-23 - , [place] [address]Vep: [id number] (HP)Tel: ([phone]) Name:[address] (HP) (WP) [phone], [place] 000[address] (WP) [address]XK: 04/11/2018 FARIHA Louis Primary KIMBER W [place] [id number] JACKIE Insurance:ANTHEM COBURNDOB: Community [place] [facility] [address] , [place] [address]Ggz: ADVANTAPolicy Number: Repository [id number] (HP) Date:9114-89-12DH [address] [place] [address]GZ: 04/11/2018 Secondary NOT GIVENUNK [place] Insurance:SELF PAY [facility] Number: Effective Repository Date:2018-04-11 03/13/2018 FARIHA E Primary KIMBER W [place] [id number] JACKIE Insurance:ANTHEM COBURNDOB: Community [place] [facility] [address] , [place] [address]Hfr: ADVANTAPolicy Number: Repository [id number] (HP) Date:7833-87-07ZB [address] [place] [address] 428[address]AG: 03/13/2018 Secondary NOT GIVENUNK [place] Insurance:SELF PAY [facility] Number: Effective Repository Date:2018-03-13 12/12/2017 Fariha [id number] Primary KIMBER W [place] Insurance:ANTHEM COBURNDOB: [place] [address], [place] [address]Dmh: ADVANTAPolicy Number: Repository [id number] (HP) Date:0222-86-56PR [address] [place] [address]ZL: 12/12/2017 Secondary NOT GIVENUNK [place] Insurance:SELF PAY [facility] Number: Effective Repository Date:2017-12-12 11/28/2017 KIMBER W Primary KIBMER W [facility] COBURNDOB: Insurance:ANTHEM COBURNDOB: [facility] [id number] [facility] [id number] Repository MEJIA Number: 2 JACKIE [facility] [id number] [place], [place] [address]Zkq: Date:2017-11-28 - , [place] [address]Yja: [id number] ()Tel: ([phone]) Name:JOANNA Ham () (WP) [id number], [place] [address] (WP) [id number]:
== END ==
PROVIDERS: Family Provider Nurse Practitioner Family; PCP Nurse Practitioner Family; Referring Provider Internal Medicine Rheumatology; Visit Provider Internal Medicine Rheumatology
DX: I10 Essential (primary) hypertension (principal); M06.4 Inflammatory polyarthropathy; Z79.899 Other long term (current) drug therapy; I34.1 Nonrheumatic mitral (valve) prolapse; E78.5 Hyperlipidemia, unspecified; K44.9 Diaphragmatic hernia without obstruction or gangrene
CPT/HCPCS: 36415; 80053; 85025

== ENCOUNTER → 2018-11-10 07:50 | Outpatient (CLI) | payer MEDICARE, SELFPAY ==
--- NOTE | 2018-11-10 07:53 | CT_ITS ---
STUDY: CT ABDOMEN WITHOUT CONTRAST REASON FOR EXAM: Female, 68 years old. One year history of upper abdominal pain and elevated liver function tests. History of inflammatory polyarthropathy. RADIATION DOSAGE (If Supplied By Facility): CTDIvol = ( 8.88 ) mGy, DLP = ( 249.23 ) mGycm TECHNIQUE: Transaxial images were obtained without intravenous contrast, and without oral contrast. Sagittal and coronal images were reconstructed. Individualized dose optimization techniques were used for this CT. COMPARISON: Comparison is made with prior study dated August 24, 2017. FINDINGS: The visualized lung bases are unremarkable. The visualized portions of the heart are within normal limits. Normal liver. Normal gallbladder and extrahepatic biliary system. Normal spleen. Normal pancreas. Normal bilateral adrenal glands. Normal right kidney. Stable left parapelvic renal cyst. Normal visualized stomach. Normal small intestine. Normal colon. The appendix is visualized and appears normal. There is diffuse atherosclerotic calcification of the abdominal aorta, without a demonstrated aneurysm. Normal inferior vena cava. Normal retroperitoneum. Normal abdominal wall. Normal osseous structures. CT/Abdomen without IV Contrast IMPRESSION: Left parapelvic renal cyst. Electronically Signed: Robin Hahn MD at 14:09 EST , Service support ,
== END ==
PROVIDERS: Family Provider Nurse Practitioner Family; PCP Nurse Practitioner Family; Referring Provider Internal Medicine Rheumatology; Visit Provider Internal Medicine Rheumatology
DX: M06.4 Inflammatory polyarthropathy (principal)
CPT/HCPCS: 74150

== ENCOUNTER → 2018-11-28 10:57 | Outpatient (CLI) | payer MEDICARE, SELFPAY ==
[2018-04-11 13:36] VITALS: BMI 23.1
[2018-11-28 13:10] LABS: ALB/GLOB Ratio 1.2 RATIO (0.9-2.4); AST(SGOT) 60 U/L (15-37); Alanine Aminotransfer ALT/SGPT 107 U/L (13-56); Alkaline Phosphatase 99 U/L (45-117); Anion Gap 8 (5-15); BUN 17 mg/dL (7-18); BUN/Creat Ratio 18.9 RATIO (10-20); Calcium,Total 8.9 mg/dL (8.5-10.1); Chloride 105 mmol/L (98-107); EST Glomerular Filtration Rate 66 mL/min (>60); Est Glom Filt Rate - Afr Amer 80 mL/min (>60); Globulin 3.4 g/dL (2.2-4.2); Glucose 87 mg/dL (74-106); Potassium 4.5 mmol/L (3.5-5.1); Protein, Total 7.4 g/dL (6.4-8.2); Sodium Level 142 mmol/L (136-145)
== END ==
PROVIDERS: Family Provider Nurse Practitioner Family; PCP Nurse Practitioner Family; Referring Provider Internal Medicine Rheumatology; Visit Provider Internal Medicine Rheumatology
DX: M06.4 Inflammatory polyarthropathy (principal); Z79.899 Other long term (current) drug therapy; I10 Essential (primary) hypertension; I34.1 Nonrheumatic mitral (valve) prolapse; E78.5 Hyperlipidemia, unspecified; K44.9 Diaphragmatic hernia without obstruction or gangrene
CPT/HCPCS: 36415; 80053

== ENCOUNTER → 2019-01-23 07:07 | Outpatient (CLI) | payer MEDICARE, SELFPAY ==
[2019-01-23 10:14] LABS: ALB/GLOB Ratio 0.9 RATIO (0.9-2.4); AST(SGOT) 19 U/L (15-37); Alanine Aminotransfer ALT/SGPT 43 U/L (13-56); Albumin, Serum 3.7 g/dL (3.2-5.0); Alkaline Phosphatase 112 U/L (45-117); Anion Gap 5 (5-15); BUN 14 mg/dL (7-18); BUN/Creat Ratio 13.7 RATIO (10-20); Calcium,Total 8.9 mg/dL (8.5-10.1); Chloride 103 mmol/L (98-107); Creatinine, Serum 1.02 mg/dL (0.55-1.02); EST Glomerular Filtration Rate 57 mL/min (>60); Est Glom Filt Rate - Afr Amer 69 mL/min (>60); Globulin 3.9 g/dL (2.2-4.2); Glucose 151 mg/dL (74-106); Potassium 3.7 mmol/L (3.5-5.1); Protein, Total 7.6 g/dL (6.4-8.2); Sodium Level 137 mmol/L (136-145)
[2019-01-23 10:15] LABS: Absolute Neutrophil Count 7.2 X10^3/uL (2.0-7.7); Basophil# 0.02 X10^3/uL; Basophil% 0.2 % (0-1); Eosinophil# 0.12 X10^3/uL; Eosinophils% 1.2 % (0-5); Hematocrit 41.7 % (37-47); Hemoglobin 13.9 g/dl (12.0-15.0); Lymphocyte % 14.3 % (19-41); Mean Corp Hgb Conc 33.3 g/gl (32-36); Mean Corpuscular Hgb 29.2 pg (27.0-32.0); Mean Corpuscular Volume 87.6 fL (81-99); Monocyte# 0.99 X10^3/uL; Monocyte% 10.1 % (0-10); Neutrophil # 7.22 X10^3/uL (2.7-7.7); Platelet Count 231 K/mm3 (150-450); RBC Distribution Width CV 12.3 % (11.6-14.6); RBC Distribution Width SD 39.8 fl (35.1-43.9); Red Blood Count 4.76 M/mm3 (4.2-5.4); White Blood Count 9.8 K/mm3 (4.4-11.0)
[2019-01-23 10:20] LABS: POSITIVE COUNT NO; POSITIVE DIFFERENTIAL NO; POSITIVE MORPHOLOGY NO
[2019-01-26 13:52] LABS: G6PD Quant Test 327 (146-376)
== END ==
PROVIDERS: Family Provider Nurse Practitioner Family; PCP Nurse Practitioner Family; Referring Provider Internal Medicine Rheumatology; Visit Provider Internal Medicine Rheumatology
DX: M06.4 Inflammatory polyarthropathy (principal); Z79.899 Other long term (current) drug therapy; I10 Essential (primary) hypertension; I34.1 Nonrheumatic mitral (valve) prolapse; E78.5 Hyperlipidemia, unspecified; K44.9 Diaphragmatic hernia without obstruction or gangrene
CPT/HCPCS: 36415; 80053; 82955; 85025

== ENCOUNTER 2019-02-02 07:31 | Emergency (ER) | payer MEDICARE, SELFPAY ==
[2019-02-02 07:32] VITALS: BP 149/74; PULSE 117; RESP 16; TEMP 36.2; O2SAT 96; BMI 24.7
--- NOTE | 2019-02-02 07:52 | ED.DCSUM_ITS ---
History of Present Illness Chief Complaint: Complaint Informant: Patient Onset: Days - Onset 4 days ago with chills and urinary symptoms. Context: Sudden Onset Timing: Continuous Quality: Discomfort Location: Suprapubic and right flank Current Severity: Mild Maximum Severity: Moderate Worsened by: Urination Relieved by: Nothing Associated Symptoms: Nausea and vomiting x1 last evening 3 hours after taking antibiotic. Narrative: Patient is an elderly woman with history of hypercholesterolemia and hypertension who presents wit urinary symptoms of urgency and pressure sensation with discomfort in the suprapubic and right flank area. She was seen at an urgent care yesterday and treated for UTI with cephalexin. She states 3 hours after taking first dose she had nausea and vomiting x1. She took a second dose at 2100. She has not taken a dose since. She reports not feeling well. No documented fever. Patient and daughter states she does not look well. Apparently she is much more active than she presently has been. There is a past medical history of left renal injury. She denies abdominal surgery. She denies history of renal or ureterolithiasis. - Past Medical History (1) Hyperlipidemia Status: Chronic (2) Hypertension Status: Chronic Past Medical History - Allergies and Home Meds Allergies/Adverse Reactions: Allergies azithromycin Adverse Reaction (Verified 02/02/19 07:32) Unknown iodine Adverse Reaction (Verified 02/02/19 07:32) Unknown latex Adverse Reaction (Verified 02/02/19 07:32) Unknown Primary Care Physician: Krzysztof Moore NP-C [Primary Care Provider] - Prior records reviewed: Yes Surgical History: no surgical history Lives: Spouse/ Significant Other Smoking Status: Never smoker Alcohol: None Drugs: None Review of Systems General: Reports: Chills, Sweats. Denies: Fever, Malaise, Subjective, Weight loss Eyes: Denies: Visual changes - bilaterally, Diplopia Cardiovascular: Denies: Chest pain, Palpitations Respiratory: Denies: Dyspnea, Cough, Dyspnea on exertion Gastrointestinal: Reports: Abdominal pain, Nausea, Vomiting. Denies: Diarrhea, Constipation, Melena, Hematochezia, -, - Genitourinary: Reports: Frequency - And urgency. Denies: Dysuria, Hematuria, -, - Musculoskeletal: Reports: Back pain - Right flank. Denies: Myalgias, Arthralgias, Neck pain, Swelling, Extremity Pain, -, - Skin: Denies: Rash, Wounds Neurological: Reports: Weakness. Denies: Headache, Parasthesia, Numbness, -, - Hematologic: Denies: Easy bruising, Easy bleeding Allergy: Denies: Uticaria, Swelling of the mouth Physical Exam Vital Signs/Narrative: Vital Signs Temp Pulse Resp BP Pulse Ox 02/02/19 07:32 97.1 F L 117 H 16 149/74 H 96 Inital Vital Signs reviewed: Yes General: Well nourished, Well developed, - - Patient does not appear in distress. She does not appear well, however. Head: Normocephalic, Atraumatic Eyes: Perrl, EOMI. Negative for: Pale conjunctiva, Scleral icterus ENT: Dry mucous membranes. Negative for: No rhinorrhea, TM's clear Neck: Supple, Nontender, No lymphadenopathy, No JVD Cardiovascular: Regular rhythm, No murmurs, Normal S1, Normal S2, Tachycardia Respiratory: No distress, CTA bilaterally, Chest nontender Abdomen: Soft, Nondistended, Normal bowel sounds, No masses, Tender - Suprapubic region. Negative for: Guarding, Rebound tenderness, Hepatomegaly, Splenomegaly, Mass, Pulsatile mass Back: Nontender, Normal Inspection, CVA tenderness - Right CVA tenderness Extremities: Nontender, No edema Skin: Normal color, No rash. Negative for: Cyanosis, Jaundice Neurological: Alert, Oriented x3, Cranial nerves II-XII grossly intact, Normal Strength, Normal Sensation Psychological: Normal affect, Normal Mood Diagnostic/Tx/Re-eval Laboratory Results 02/02/19 02/02/19 02/02/19 08:40 08:40 08:40 WBC 6.4 RBC 4.62 Hgb 13.4 Hct 39.6 MCV 85.7 MCH 29.0 MCHC 33.8 RDW 12.1 RDW Differential 37.5 Plt Count 233 MPV 9.1 Immature Gran % (Auto) 0.200 Neut % (Auto) 77.7 H Lymph % (Auto) 10.3 L Rush % (Auto) 11.3 H Eos % (Auto) 0.3 Baso % (Auto) 0.2 Absolute Neuts (auto) 5.0 Absolute Lymphs (auto) 0.66 L Total Counted Not Reportable Sodium 136 Potassium 3.7 Chloride 100 Carbon Dioxide 30.0 Anion Gap 6 BUN 13 Creatinine 0.90 Estim Creat Clear Calc 56.01 Est GFR (MDRD) Af Amer 80 Est GFR (MDRD) Non-Af 66 BUN/Creatinine Ratio 14.4 Glucose 119 H Lactic Acid 0.7 Calcium 8.9 Urine Color Urine Clarity Urine pH Ur Specific [place] Urine Protein Urine Glucose (UA) Urine Ketones Urine Occult Blood Urine Nitrite Urine Bilirubin Urine Urobilinogen Ur Leukocyte Esterase Urine RBC Urine WBC Ur Squamous Epith Cells Urine Bacteria Urine Mucus 02/02/19 08:40 WBC RBC Hgb Hct MCV MCH MCHC RDW RDW Differential Plt Count MPV Immature Gran % (Auto) Neut % (Auto) Lymph % (Auto) Rush % (Auto) Eos % (Auto) Baso % (Auto) Absolute Neuts (auto) Absolute Lymphs (auto) Total Counted Sodium Potassium Chloride Carbon Dioxide Anion Gap BUN Creatinine Estim Creat Clear Calc Est GFR (MDRD) Af Amer Est GFR (MDRD) Non-Af BUN/Creatinine Ratio Glucose Lactic Acid Calcium Urine Color Yellow Urine Clarity Sl. Cloudy Urine pH 6.0 Ur Specific [place] 1.020 Urine Protein 30 H Urine Glucose (UA) Normal Urine Ketones 15 H Urine Occult Blood 10 H Urine Nitrite Negative Urine Bilirubin 1 H Urine Urobilinogen 4 H Ur Leukocyte Esterase 25 H Urine RBC 0-5 SEEN Urine WBC 0-5 SEEN Ur Squamous Epith Cells 0-5 SEEN Urine Bacteria RARE Urine Mucus 1+ - Medical Decision Making Vital signs remarkable for tachycardia. Will place on monitor to determine rhythm and determine if EKG is needed. Patient history and physical is suggestive of pyelonephritis. Will obtain appropriate screening labs to assess white count and differential as well as electrolytes and renal function. Urine and urine culture was obtained. Patient was informed she may require admission since she is having nausea and vomiting and no improvement. Patient daughter states she still has nausea. She is passing the restroom. 5 mg of Reglan was ordered. She has had no vomiting during her stay. Will treat with 1 g of Rocephin. Will reassess after Rocephin has infused. I was informed at 1100 that patient passed p.o. challenge. Will discharge with prescription for Reglan and ciprofloxacin. ED Disposition - Plan for ED Patient: Disposition: Home or Assisted Living Diagnosis: Pyelonephritis, acute, Nausea and vomiting, Mild dehydration Instructions: ED Kidney Infec Female Prescriptions: Ciprofloxacin [Cipro] 500 mg PO BID #14 tablet Metoclopramide HCl [Reglan] 5 mg PO 4X/DAY #10 tablet Referrals: Krzysztof Moore, ANESTHESIOLOGY TECHNOLOGIST-C [Primary Care Provider] - 3-5 Days if not improving Additional Instructions: Your prescription was transmitted electronically to your designated pharmacy of choice.
[2019-02-02 08:54] LABS: Absolute Lymphocyte Count 0.66 X10^3/ul (0.83-4.51); Basophil# 0.01 X10^3/uL; Basophil% 0.2 % (0-1); Eosinophil# 0.02 X10^3/uL; Eosinophils% 0.3 % (0-5); Hematocrit 39.6 % (37-47); Hemoglobin 13.4 g/dl (12.0-15.0); Lymphocyte # 0.66 X10^3/ul (4.0); Lymphocyte % 10.3 % (19-41); Mean Corp Hgb Conc 33.8 g/gl (32-36); Mean Corpuscular Volume 85.7 fL (81-99); Mean Platelet Vol. 9.1 fl (6.2-12.0); Monocyte# 0.72 X10^3/uL; Monocyte% 11.3 % (0-10); Neutrophil # 4.96 X10^3/uL (2.7-7.7); Neutrophil % 77.7 % (47-70); POSITIVE COUNT NO; POSITIVE DIFFERENTIAL NO; POSITIVE MORPHOLOGY NO; Platelet Count 233 K/mm3 (150-450); RBC Distribution Width CV 12.1 % (11.6-14.6); RBC Distribution Width SD 37.5 fl (35.1-43.9); Red Blood Count 4.62 M/mm3 (4.2-5.4); White Blood Count 6.4 K/mm3 (4.4-11.0)
[2019-02-02] MEDS: Ondansetron 4 MG/2 ML Vial IV (09:00)
[2019-02-02] MEDS: 0.9% Normal Saline 1,000 ML 1000 ML IV (09:00)
[2019-02-02 09:05] LABS: Anion Gap 6 (5-15); BUN 13 mg/dL (7-18); BUN/Creat Ratio 14.4 RATIO (10-20); Calcium,Total 8.9 mg/dL (8.5-10.1); Chloride 100 mmol/L (98-107); EST Glomerular Filtration Rate 66 mL/min (>60); Est Glom Filt Rate - Afr Amer 80 mL/min (>60); Estimated Creatinine Clearance 56.01 ml/min; Glucose 119 mg/dL (74-106); Potassium 3.7 mmol/L (3.5-5.1); Sodium Level 136 mmol/L (136-145)
[2019-02-02 09:17] LABS: Lactic Acid 0.7 mmol/L (0.4-2.0)
[2019-02-02 09:33] LABS: Color, Urine Yellow (Yellow); Glucose, Dipstick Normal (Normal); Ketone-Dipstick 15 mg/dl (Negative); Leukocyte Esterase-Dipstick 25 /ul (Negative); Nitrite-Dipstick Negative (Negative); Occult Blood-Urine 10 /ul (Negative); Protein-Dipstick 30 mg/dl (Negative); Urine Bilirubin Dipstick 1 mg/dL (Negative); Urine Clarity Sl. Cloudy (Clear); Urine Urobilinogen 4 mg/dl (Normal)
[2019-02-02 09:35] LABS: Bacteria RARE /hpf (None Seen); Mucous, Urine 1+ /hpf (<or=2+); Red Blood Cells-Urine 0-5 SEEN /hpf (0-5); Squamous Epithelial Cells - UA 0-5 SEEN /hpf (5-10); White Blood Cells 0-5 SEEN /hpf (0-5)
[2019-02-02] MEDS: Metoclopramide 10 MG/2 ML Vial 5 MG IV (09:56)
[2019-02-02 09:59] VITALS: BP 138/74; PULSE 77; RESP 16; TEMP 36.7; O2SAT 98
[2019-02-02] MEDS: Ceftriaxone 1 GM/50 ML BAG IV (10:12)
[2019-02-02 11:26] VITALS: BP 128/69; PULSE 89; RESP 16; O2SAT 95
--- NOTE | 2019-02-02 11:27 | ED.RN ---
IV DC'ED, CATHETER INTACT, SMALL GAUZE DRESSING PLACED. DISCHARGE INSTRUCTIONS GIVEN TO AND REVIEWED WITH PATIENT, PATIENT DENIES QUESTIONS OR CONCERNS AND VOICES UNDERSTANDING OF DISCHARGE INSTRUCTIONS. PT AMBULATES OUT OF ROOM WITHOUT DIFFICULTY.
== END 2019-02-02 11:27 | disposition home or self-care (01) ==
PROVIDERS: Emergency Provider Emergency Medicine; Family Provider Nurse Practitioner Family; PCP Nurse Practitioner Family
DX: N10 Acute pyelonephritis (principal); R11.2 Nausea with vomiting, unspecified; E86.0 Dehydration; I10 Essential (primary) hypertension; E78.5 Hyperlipidemia, unspecified
CPT/HCPCS: 80048; 81001; 83605; 85025; 87086; 96361; 96365; 96374; 99283; J7030; J7050; A4216; J2405

== ENCOUNTER → 2019-02-05 10:06 | Outpatient (CLI) | payer MEDICARE, SELFPAY ==
[2019-02-02 07:32] VITALS: BMI 24.7
--- NOTE | 2019-02-05 10:10 | RAD_ITS ---
STUDY: X-RAY - THORACIC SPINE REASON FOR EXAM: Female, 68 years old. Back pain TECHNIQUE: 2 view(s) of the thoracic spine were obtained. COMPARISON: None. FINDINGS: Normal kyphosis of the thoracic spine. Mild dextroconvex scoliosis. Mild diffuse spondylosis. Normal disc space heights. The soft tissue structures are unremarkable. RAD/Thoracic Spine 3 Views IMPRESSION: Mild dextroconvex scoliosis. Mild diffuse spondylosis. Electronically Signed: Scottie Dwyer MD at 18:36 EDT Tel , Service support ,
--- NOTE | 2019-02-05 10:11 | RAD_ITS ---
STUDY: X-RAY CHEST REASON FOR EXAM: Female, 68 years old. Left-sided pain for one year TECHNIQUE: 2 views COMPARISON: None. FINDINGS: The lungs are clear and expanded. There is no demonstrated pleural abnormality. Normal size heart. Normal mediastinum and ambrose. Normal visualized pulmonary arteries. Normal visualized aortic arch and descending thoracic aorta. There is a dextroscoliosis of the thoracic spine. Normal visualized ribs, clavicles, and shoulders. There is no demonstrated abnormality of the visualized soft tissue structures of the upper abdomen. RAD/Chest PA and Lateral IMPRESSION: No acute pulmonary findings. Electronically Signed: Scottie Dwyer MD at 18:41 EDT Tel , Service support ,
--- NOTE | 2019-02-05 10:13 | RAD_ITS ---
STUDY: X-RAY - UNILATERAL RIBS ( LEFT ) REASON FOR EXAM: Female, 68 years old. Pain for one year TECHNIQUE: 3 view(s) of the ribs. COMPARISON: None. FINDINGS: Normal visualized ribs without a demonstrated fracture or osteolytic lesion. The visualized lung is clear and expanded. RAD/Ribs Unil 2V No CXR IMPRESSION: Normal x-ray examination of the ribs. Electronically Signed: Scottie Dwyer MD at 20:22 EDT Tel , Service support ,
== END ==
PROVIDERS: Family Provider Nurse Practitioner Family; PCP Nurse Practitioner Family; Referring Provider Nurse Practitioner Family; Visit Provider Nurse Practitioner Family
DX: R07.81 Pleurodynia (principal); M54.9 Dorsalgia, unspecified
CPT/HCPCS: 71046; 71100; 72072

== ENCOUNTER → 2019-03-02 09:37 | Outpatient (CLI) | payer MEDICARE, SELFPAY ==
[2019-02-02 07:32] VITALS: BMI 24.7
[2019-03-02 12:44] LABS: Absolute Lymphocyte Count 1.54 X10^3/ul (0.83-4.51); Absolute Neutrophil Count 1.6 X10^3/uL (2.0-7.7); Basophil# 0.01 X10^3/uL; Basophil% 0.3 % (0-1); Eosinophil# 0.12 X10^3/uL; Eosinophils% 3.2 % (0-5); Hematocrit 38.5 % (37-47); Hemoglobin 12.5 g/dl (12.0-15.0); Lymphocyte # 1.54 X10^3/ul (4.0); Lymphocyte % 40.7 % (19-41); Mean Corp Hgb Conc 32.5 g/gl (32-36); Mean Corpuscular Hgb 28.2 pg (27.0-32.0); Mean Corpuscular Volume 86.9 fL (81-99); Mean Platelet Vol. 9.7 fl (6.2-12.0); Monocyte# 0.48 X10^3/uL; Monocyte% 12.7 % (0-10); Neutrophil # 1.63 X10^3/uL (2.7-7.7); Neutrophil % 43.1 % (47-70); Platelet Count 176 K/mm3 (150-450); RBC Distribution Width CV 13.3 % (11.6-14.6); RBC Distribution Width SD 42.4 fl (35.1-43.9); Red Blood Count 4.43 M/mm3 (4.2-5.4); White Blood Count 3.8 K/mm3 (4.4-11.0)
[2019-03-02 12:51] LABS: POSITIVE COUNT NO; POSITIVE DIFFERENTIAL NO; POSITIVE MORPHOLOGY NO
[2019-03-02 13:26] LABS: ALB/GLOB Ratio 1.1 RATIO (0.9-2.4); AST(SGOT) 27 U/L (15-37); Alanine Aminotransfer ALT/SGPT 33 U/L (13-56); Albumin, Serum 3.8 g/dL (3.2-5.0); Alkaline Phosphatase 82 U/L (45-117); Anion Gap 6 (5-15); BUN 19 mg/dL (7-18); BUN/Creat Ratio 21.2 RATIO (10-20); Calcium,Total 9.1 mg/dL (8.5-10.1); Chloride 106 mmol/L (98-107); EST Glomerular Filtration Rate 67 mL/min (>60); Est Glom Filt Rate - Afr Amer 81 mL/min (>60); Globulin 3.4 g/dL (2.2-4.2); Glucose 95 mg/dL (74-106); Potassium 4.2 mmol/L (3.5-5.1); Protein, Total 7.2 g/dL (6.4-8.2); Sodium Level 140 mmol/L (136-145)
== END ==
PROVIDERS: Family Provider Nurse Practitioner Family; PCP Nurse Practitioner Family; Referring Provider Internal Medicine Rheumatology; Visit Provider Internal Medicine Rheumatology
DX: M06.4 Inflammatory polyarthropathy (principal); Z79.899 Other long term (current) drug therapy; I10 Essential (primary) hypertension; I34.1 Nonrheumatic mitral (valve) prolapse; E78.5 Hyperlipidemia, unspecified; K44.9 Diaphragmatic hernia without obstruction or gangrene
CPT/HCPCS: 36415; 80053; 85025

== ENCOUNTER → 2019-05-09 08:10 | Outpatient (CLI) | payer MEDICARE, SELFPAY ==
[2019-05-09 10:13] LABS: Absolute Lymphocyte Count 1.52 X10^3/uL (0.83-4.51); Absolute Neutrophil Count 2.8 X10^3/uL (2.0-7.7); Basophil# 0.02 X10^3/uL; Basophil% 0.4 % (0-1); Eosinophil# 0.11 X10^3/uL; Eosinophils% 2.2 % (0-5); Hematocrit 40.5 % (37-47); Hemoglobin 13.4 g/dL (12.0-15.0); Lymphocyte # 1.52 X10^3/ul (4.0); Lymphocyte % 30.6 % (19-41); Mean Corp Hgb Conc 33.1 g/dL (32-36); Mean Corpuscular Hgb 29.3 pg (27.0-32.0); Mean Corpuscular Volume 88.4 fL (81-99); Mean Platelet Vol. 9.7 fl (6.2-12.0); Monocyte# 0.55 X10^3/uL; Monocyte% 11.1 % (0-10); NRBC Flagged by Analyzer 0 % (0-5); Neutrophil # 2.75 X10^3/uL (2.7-7.7); Neutrophil % 55.3 % (47-70); Platelet Count 194 K/mm3 (150-450); RBC Distribution Width SD 41.8 fl (35.1-43.9); Red Blood Count 4.58 M/mm3 (4.2-5.4)
[2019-05-09 10:47] LABS: ALB/GLOB Ratio 1.2 RATIO (0.9-2.4); AST(SGOT) 19 U/L (15-37); Alanine Aminotransfer ALT/SGPT 24 U/L (13-56); Alkaline Phosphatase 92 U/L (45-117); Anion Gap 2 (5-15); BUN 17 mg/dL (7-18); BUN/Creat Ratio 20.1 RATIO (10-20); Calcium,Total 9.2 mg/dL (8.5-10.1); Chloride 104 mmol/L (98-107); Creatinine, Serum 0.85 mg/dL (0.55-1.02); EST Glomerular Filtration Rate 71 mL/min (>60); Est Glom Filt Rate - Afr Amer 86 mL/min (>60); Globulin 3.4 g/dL (2.2-4.2); Glucose 102 mg/dL (74-106); Potassium 4.4 mmol/L (3.5-5.1); Protein, Total 7.4 g/dL (6.4-8.2); Sodium Level 139 mmol/L (136-145)
== END ==
PROVIDERS: Family Provider Nurse Practitioner Family; PCP Nurse Practitioner Family; Referring Provider Internal Medicine Rheumatology; Visit Provider Internal Medicine Rheumatology
DX: M06.4 Inflammatory polyarthropathy (principal); Z79.899 Other long term (current) drug therapy; I10 Essential (primary) hypertension; I34.1 Nonrheumatic mitral (valve) prolapse; E78.5 Hyperlipidemia, unspecified; K44.9 Diaphragmatic hernia without obstruction or gangrene
CPT/HCPCS: 36415; 80053; 85025

== ENCOUNTER → 2019-05-28 07:07 | Outpatient (CLI) | payer MEDICARE, SELFPAY ==
[2019-05-28 10:10] LABS: Absolute Lymphocyte Count 1.41 X10^3/uL (0.83-4.51); Absolute Neutrophil Count 2.2 X10^3/uL (2.0-7.7); Basophil# 0.01 X10^3/uL; Basophil% 0.2 % (0-1); Eosinophil# 0.13 X10^3/uL; Eosinophils% 3.1 % (0-5); Hematocrit 41.7 % (37-47); Hemoglobin 13.9 g/dL (12.0-15.0); Lymphocyte # 1.41 X10^3/ul (4.0); Lymphocyte % 33.3 % (19-41); Mean Corp Hgb Conc 33.3 g/dL (32-36); Mean Corpuscular Hgb 29.5 pg (27.0-32.0); Mean Corpuscular Volume 88.5 fL (81-99); Monocyte# 0.48 X10^3/uL; Monocyte% 11.3 % (0-10); NRBC Flagged by Analyzer 0 % (0-5); Neutrophil # 2.19 X10^3/uL (2.7-7.7); Neutrophil % 51.9 % (47-70); Platelet Count 167 K/mm3 (150-450); RBC Distribution Width CV 12.4 % (11.6-14.6); RBC Distribution Width SD 40.4 fl (35.1-43.9); Red Blood Count 4.71 M/mm3 (4.2-5.4); White Blood Count 4.2 K/mm3 (4.4-11.0)
[2019-05-28 10:28] LABS: Vitamin D,25 Hydroxy 59.1 ng/mL (29.95-100.01)
[2019-05-28 10:51] LABS: ALB/GLOB Ratio 1.1 RATIO (0.9-2.4); AST(SGOT) 20 U/L (15-37); Alanine Aminotransfer ALT/SGPT 26 U/L (13-56); Albumin, Serum 3.8 g/dL (3.2-5.0); Alkaline Phosphatase 88 U/L (45-117); Anion Gap 5 (5-15); BUN 13 mg/dL (7-18); BUN/Creat Ratio 16.4 RATIO (10-20); Calcium,Total 8.9 mg/dL (8.5-10.1); Chloride 107 mmol/L (98-107); Cholesterol 167 mg/dL (200); Creatinine, Serum 0.79 mg/dL (0.55-1.02); EST Glomerular Filtration Rate 77 mL/min (>60); Est Glom Filt Rate - Afr Amer 93 mL/min (>60); Globulin 3.5 g/dL (2.2-4.2); Glucose 88 mg/dL (74-106); High Density Lipoprotein 53 mg/dL; Potassium 4.2 mmol/L (3.5-5.1); Protein, Total 7.3 g/dL (6.4-8.2); Sodium Level 143 mmol/L (136-145); Triglycerides 101 mg/dL; Very Low Density Lipoprotein 20 mg/dL (5-40)
== END ==
PROVIDERS: Family Provider Nurse Practitioner Family; PCP Nurse Practitioner Family; Referring Provider Nurse Practitioner Family; Visit Provider Nurse Practitioner Family
DX: I10 Essential (primary) hypertension (principal); E78.5 Hyperlipidemia, unspecified; E55.9 Vitamin D deficiency, unspecified
CPT/HCPCS: 36415; 80053; 80061; 82306; 85025

== ENCOUNTER → 2019-08-08 08:39 | Outpatient (CLI) | payer MEDICARE, SELFPAY ==
[2019-08-08 09:57] LABS: Absolute Neutrophil Count 2.4 X10^3/uL (2.0-7.7); Basophil# 0.03 X10^3/uL; Basophil% 0.6 % (0-1); Eosinophil# 0.18 X10^3/uL; Eosinophils% 3.9 % (0-5); Hematocrit 41.6 % (37-47); Hemoglobin 13.5 g/dL (12.0-15.0); Lymphocyte % 32.2 % (19-41); Mean Corp Hgb Conc 32.5 g/dL (32-36); Mean Corpuscular Hgb 29.2 pg (27.0-32.0); Mean Platelet Vol. 9.4 fl (6.2-12.0); Monocyte% 10.7 % (0-10); NRBC Flagged by Analyzer 0 % (0-5); Neutrophil # 2.44 X10^3/uL (2.7-7.7); Neutrophil % 52.4 % (47-70); Platelet Count 203 K/mm3 (150-450); RBC Distribution Width SD 39.2 fl (35.1-43.9); Red Blood Count 4.62 M/mm3 (4.2-5.4); White Blood Count 4.7 K/mm3 (4.4-11.0)
[2019-08-08 10:33] LABS: ALB/GLOB Ratio 1.1 RATIO (0.9-2.4); AST(SGOT) 20 U/L (15-37); Alanine Aminotransfer ALT/SGPT 27 U/L (13-56); Alkaline Phosphatase 90 U/L (45-117); Anion Gap 4 (5-15); BUN 19 mg/dL (7-18); BUN/Creat Ratio 20.3 RATIO (10-20); Calcium,Total 9.6 mg/dL (8.5-10.1); Chloride 103 mmol/L (98-107); Creatinine, Serum 0.94 mg/dL (0.55-1.02); EST Glomerular Filtration Rate 63 mL/min (>60); Est Glom Filt Rate - Afr Amer 76 mL/min (>60); Globulin 3.6 g/dL (2.2-4.2); Glucose 112 mg/dL (74-106); Potassium 4.1 mmol/L (3.5-5.1); Protein, Total 7.6 g/dL (6.4-8.2); Sodium Level 139 mmol/L (136-145)
== END ==
PROVIDERS: Family Provider Nurse Practitioner Family; PCP Nurse Practitioner Family; Referring Provider Internal Medicine Rheumatology; Visit Provider Internal Medicine Rheumatology
DX: M06.4 Inflammatory polyarthropathy (principal); Z79.899 Other long term (current) drug therapy; I10 Essential (primary) hypertension; I34.1 Nonrheumatic mitral (valve) prolapse; E78.5 Hyperlipidemia, unspecified; K44.9 Diaphragmatic hernia without obstruction or gangrene
CPT/HCPCS: 36415; 80053; 85025

== ENCOUNTER → 2019-11-13 07:41 | Outpatient (CLI) | payer MEDICARE, SELFPAY ==
[2019-11-13 10:38] LABS: Absolute Lymphocyte Count 1.53 X10^3/uL (0.83-4.51); Absolute Neutrophil Count 2.7 X10^3/uL (2.0-7.7); Basophil# 0.02 X10^3/uL; Basophil% 0.4 % (0-1); Eosinophil# 0.21 X10^3/uL; Eosinophils% 4.3 % (0-5); Hematocrit 40.1 % (37-47); Lymphocyte # 1.53 X10^3/ul (4.0); Mean Corp Hgb Conc 32.4 g/dL (32-36); Mean Corpuscular Volume 89.5 fL (81-99); Mean Platelet Vol. 9.8 fl (6.2-12.0); Monocyte# 0.52 X10^3/uL; Monocyte% 10.5 % (0-10); NRBC Flagged by Analyzer 0 % (0-5); Neutrophil # 2.65 X10^3/uL (2.7-7.7); Neutrophil % 53.6 % (47-70); Platelet Count 212 K/mm3 (150-450); RBC Distribution Width CV 12.1 % (11.6-14.6); RBC Distribution Width SD 39.3 fl (35.1-43.9); Red Blood Count 4.48 M/mm3 (4.2-5.4); White Blood Count 4.9 K/mm3 (4.4-11.0)
[2019-11-13 11:10] LABS: ALB/GLOB Ratio 1.1 RATIO (0.9-2.4); AST(SGOT) 17 U/L (15-37); Alanine Aminotransfer ALT/SGPT 26 U/L (13-56); Albumin, Serum 3.9 g/dL (3.2-5.0); Alkaline Phosphatase 90 U/L (45-117); Anion Gap 6 (5-15); BUN 20 mg/dL (7-18); BUN/Creat Ratio 20.9 RATIO (10-20); Calcium,Total 9.1 mg/dL (8.5-10.1); Chloride 105 mmol/L (98-107); Creatinine, Serum 0.96 mg/dL (0.55-1.02); EST Glomerular Filtration Rate 61 mL/min (>60); Est Glom Filt Rate - Afr Amer 74 mL/min (>60); Globulin 3.4 g/dL (2.2-4.2); Glucose 109 mg/dL (74-106); Protein, Total 7.3 g/dL (6.4-8.2); Sodium Level 140 mmol/L (136-145)
== END ==
PROVIDERS: PCP Nurse Practitioner Family; Referring Provider Internal Medicine Rheumatology; Visit Provider Internal Medicine Rheumatology
DX: M06.4 Inflammatory polyarthropathy (principal); Z79.899 Other long term (current) drug therapy; I10 Essential (primary) hypertension; I34.1 Nonrheumatic mitral (valve) prolapse; E78.5 Hyperlipidemia, unspecified; K44.9 Diaphragmatic hernia without obstruction or gangrene
CPT/HCPCS: 36415; 80053; 85025

== ENCOUNTER → 2019-11-26 07:02 | Outpatient (CLI) | payer MEDICARE, SELFPAY ==
[2019-11-26 10:19] LABS: Hematocrit 41.5 % (37-47); Hemoglobin 13.4 g/dL (12.0-15.0); Mean Corp Hgb Conc 32.3 g/dL (32-36); Mean Corpuscular Hgb 28.9 pg (27.0-32.0); Mean Corpuscular Volume 89.4 fL (81-99); Platelet Count 184 K/mm3 (150-450); RBC Distribution Width CV 11.9 % (11.6-14.6); RBC Distribution Width SD 38.6 fl (35.1-43.9); Red Blood Count 4.64 M/mm3 (4.2-5.4); White Blood Count 4.9 K/mm3 (4.4-11.0)
[2019-11-26 10:27] LABS: ALB/GLOB Ratio 1.1 RATIO (0.9-2.4); AST(SGOT) 21 U/L (15-37); Alanine Aminotransfer ALT/SGPT 28 U/L (13-56); Alkaline Phosphatase 81 U/L (45-117); Anion Gap 4 (5-15); BUN 18 mg/dL (7-18); BUN/Creat Ratio 19.5 RATIO (10-20); Calcium,Total 9.1 mg/dL (8.5-10.1); Chloride 105 mmol/L (98-107); Cholesterol 190 mg/dL (200); Creatinine, Serum 0.92 mg/dL (0.55-1.02); EST Glomerular Filtration Rate 64 mL/min (>60); Est Glom Filt Rate - Afr Amer 78 mL/min (>60); Globulin 3.5 g/dL (2.2-4.2); Glucose 91 mg/dL (74-106); High Density Lipoprotein 51 mg/dL; Potassium 3.7 mmol/L (3.5-5.1); Protein, Total 7.5 g/dL (6.4-8.2); Sodium Level 141 mmol/L (136-145); Triglycerides 138 mg/dL; Very Low Density Lipoprotein 28 mg/dL (5-40)
[2019-11-26 10:42] LABS: Vitamin D,25 Hydroxy 73.6 ng/mL (29.95-100.01)
== END ==
PROVIDERS: PCP Nurse Practitioner Family; Referring Provider Nurse Practitioner Family; Visit Provider Nurse Practitioner Family
DX: I10 Essential (primary) hypertension (principal); E78.5 Hyperlipidemia, unspecified; E55.9 Vitamin D deficiency, unspecified
CPT/HCPCS: 36415; 80053; 80061; 82306; 85027

== ENCOUNTER → 2020-02-11 07:04 | Outpatient (CLI) | payer MEDICARE, SELFPAY ==
[2020-01-25 11:27] VITALS: BMI 24.1
[2020-02-11 10:01] LABS: Absolute Lymphocyte Count 1.43 X10^3/uL (0.83-4.51); Absolute Neutrophil Count 2.8 X10^3/uL (2.0-7.7); Basophil# 0.02 X10^3/uL; Basophil% 0.4 % (0-1); Eosinophil# 0.03 X10^3/uL; Eosinophils% 0.6 % (0-5); Hematocrit 39.1 % (37-47); Hemoglobin 12.7 g/dL (12.0-15.0); Lymphocyte # 1.43 X10^3/ul (4.0); Lymphocyte % 29.5 % (19-41); Mean Corp Hgb Conc 32.5 g/dL (32-36); Mean Corpuscular Hgb 29.7 pg (27.0-32.0); Mean Corpuscular Volume 91.4 fL (81-99); Mean Platelet Vol. 9.3 fl (6.2-12.0); Monocyte# 0.57 X10^3/uL; Monocyte% 11.8 % (0-10); NRBC Flagged by Analyzer 0 % (0-5); Neutrophil # 2.78 X10^3/uL (2.7-7.7); Neutrophil % 57.5 % (47-70); Platelet Count 183 K/mm3 (150-450); RBC Distribution Width CV 12.4 % (11.6-14.6); RBC Distribution Width SD 40.5 fl (35.1-43.9); Red Blood Count 4.28 M/mm3 (4.2-5.4); White Blood Count 4.8 K/mm3 (4.4-11.0)
[2020-02-11 10:24] LABS: ALB/GLOB Ratio 1.1 RATIO (0.9-2.4); AST(SGOT) 22 U/L (15-37); Alanine Aminotransfer ALT/SGPT 29 U/L (13-56); Albumin, Serum 3.6 g/dL (3.2-5.0); Alkaline Phosphatase 91 U/L (45-117); Anion Gap 3 (5-15); BUN 17 mg/dL (7-18); BUN/Creat Ratio 19.7 RATIO (10-20); Calcium,Total 8.9 mg/dL (8.5-10.1); Chloride 105 mmol/L (98-107); Creatinine, Serum 0.86 mg/dL (0.55-1.02); EST Glomerular Filtration Rate 69 mL/min (>60); Est Glom Filt Rate - Afr Amer 84 mL/min (>60); Globulin 3.4 g/dL (2.2-4.2); Glucose 96 mg/dL (74-106); Sodium Level 140 mmol/L (136-145)
== END ==
PROVIDERS: PCP Nurse Practitioner Family; Referring Provider Internal Medicine Rheumatology; Visit Provider Internal Medicine Rheumatology
DX: M06.4 Inflammatory polyarthropathy (principal); Z79.899 Other long term (current) drug therapy; I10 Essential (primary) hypertension; I34.1 Nonrheumatic mitral (valve) prolapse; E78.5 Hyperlipidemia, unspecified; K44.9 Diaphragmatic hernia without obstruction or gangrene
CPT/HCPCS: 36415; 80053; 85025

== ENCOUNTER → 2020-05-26 07:07 | Outpatient (CLI) | payer MEDICARE, SELFPAY ==
[2020-01-25 11:27] VITALS: BMI 24.1
[2020-05-26 09:55] LABS: Absolute Lymphocyte Count 1.51 X10^3/uL (0.83-4.51); Absolute Neutrophil Count 2.6 X10^3/uL (2.0-7.7); Basophil# 0.03 X10^3/uL; Basophil% 0.6 % (0-1); Eosinophil# 0.13 X10^3/uL; Eosinophils% 2.7 % (0-5); Hematocrit 40.4 % (37-47); Lymphocyte # 1.51 X10^3/ul (4.0); Lymphocyte % 31.9 % (19-41); Mean Corp Hgb Conc 32.2 g/dL (32-36); Mean Corpuscular Hgb 28.7 pg (27.0-32.0); Mean Corpuscular Volume 89.2 fL (81-99); Mean Platelet Vol. 9.9 fl (6.2-12.0); Monocyte# 0.46 X10^3/uL; Monocyte% 9.7 % (0-10); NRBC Flagged by Analyzer 0 % (0-5); Neutrophil % 55.1 % (47-70); Platelet Count 206 K/mm3 (150-450); RBC Distribution Width SD 38.9 fl (35.1-43.9); Red Blood Count 4.53 M/mm3 (4.2-5.4); White Blood Count 4.7 K/mm3 (4.4-11.0)
[2020-05-26 10:21] LABS: ALB/GLOB Ratio 1.1 RATIO (0.9-2.4); AST(SGOT) 18 U/L (15-37); Alanine Aminotransfer ALT/SGPT 24 U/L (13-56); Albumin, Serum 3.8 g/dL (3.2-5.0); Alkaline Phosphatase 86 U/L (45-117); Anion Gap 2 (5-15); BUN 15 mg/dL (7-18); BUN/Creat Ratio 16.4 RATIO (10-20); Calcium,Total 8.8 mg/dL (8.5-10.1); Chloride 107 mmol/L (98-107); Cholesterol 177 mg/dL (200); Creatinine, Serum 0.91 mg/dL (0.55-1.02); EST Glomerular Filtration Rate 65 mL/min (>60); Est Glom Filt Rate - Afr Amer 78 mL/min (>60); Globulin 3.4 g/dL (2.2-4.2); Glucose 97 mg/dL (74-106); High Density Lipoprotein 44 mg/dL; Potassium 4.1 mmol/L (3.5-5.1); Protein, Total 7.2 g/dL (6.4-8.2); Sodium Level 140 mmol/L (136-145); Triglycerides 131 mg/dL; Very Low Density Lipoprotein 26 mg/dL (5-40)
== END ==
PROVIDERS: PCP Nurse Practitioner Family; Visit Provider Internal Medicine Rheumatology
DX: I10 Essential (primary) hypertension (principal); M06.4 Inflammatory polyarthropathy; Z79.899 Other long term (current) drug therapy; I34.1 Nonrheumatic mitral (valve) prolapse; E78.5 Hyperlipidemia, unspecified; K44.9 Diaphragmatic hernia without obstruction or gangrene; E55.9 Vitamin D deficiency, unspecified
CPT/HCPCS: 36415; 80053; 80061; 82306; 85025

== ENCOUNTER → 2020-08-11 07:56 | Outpatient (CLI) | payer MEDICARE, SELFPAY ==
[2020-07-25 13:16] VITALS: BMI 26.6
[2020-08-11 10:01] LABS: Absolute Lymphocyte Count 1.43 X10^3/uL (0.83-4.51); Absolute Neutrophil Count 2.6 X10^3/uL (2.0-7.7); Basophil# 0.02 X10^3/uL; Basophil% 0.4 % (0-1); Eosinophils% 2.1 % (0-5); Hematocrit 39.4 % (37-47); Hemoglobin 12.5 g/dL (12.0-15.0); Lymphocyte # 1.43 X10^3/ul (4.0); Lymphocyte % 30.4 % (19-41); Mean Corp Hgb Conc 31.7 g/dL (32-36); Mean Corpuscular Hgb 28.3 pg (27.0-32.0); Mean Corpuscular Volume 89.1 fL (81-99); Mean Platelet Vol. 9.6 fl (6.2-12.0); Monocyte% 10.6 % (0-10); NRBC Flagged by Analyzer 0 % (0-5); Neutrophil # 2.64 X10^3/uL (2.7-7.7); Neutrophil % 56.3 % (47-70); Platelet Count 206 K/mm3 (150-450); RBC Distribution Width CV 12.1 % (11.6-14.6); Red Blood Count 4.42 M/mm3 (4.2-5.4); White Blood Count 4.7 K/mm3 (4.4-11.0)
[2020-08-11 10:39] LABS: ALB/GLOB Ratio 1.2 RATIO (0.9-2.4); AST(SGOT) 21 U/L (15-37); Alanine Aminotransfer ALT/SGPT 24 U/L (13-56); Alkaline Phosphatase 94 U/L (45-117); Anion Gap 6 (5-15); BUN 14 mg/dL (7-18); Calcium,Total 9.3 mg/dL (8.5-10.1); Chloride 105 mmol/L (98-107); EST Glomerular Filtration Rate 58 mL/min (>60); Est Glom Filt Rate - Afr Amer 71 mL/min (>60); Globulin 3.4 g/dL (2.2-4.2); Glucose 98 mg/dL (74-106); Potassium 4.2 mmol/L (3.5-5.1); Protein, Total 7.4 g/dL (6.4-8.2); Sodium Level 140 mmol/L (136-145)
== END ==
PROVIDERS: PCP Nurse Practitioner Family; Referring Provider Internal Medicine Rheumatology; Visit Provider Internal Medicine Rheumatology
DX: M06.4 Inflammatory polyarthropathy (principal); Z79.899 Other long term (current) drug therapy; I10 Essential (primary) hypertension; I34.1 Nonrheumatic mitral (valve) prolapse; E78.5 Hyperlipidemia, unspecified; K44.9 Diaphragmatic hernia without obstruction or gangrene
CPT/HCPCS: 36415; 80053; 85025

== ENCOUNTER → 2020-10-28 07:39 | Outpatient (CLI) | payer MEDICARE, SELFPAY ==
[2020-07-25 13:16] VITALS: BMI 26.6
[2020-10-28 10:09] LABS: ALB/GLOB Ratio 1.1 RATIO (0.9-2.4); AST(SGOT) 20 U/L (15-37); Alanine Aminotransfer ALT/SGPT 25 U/L (13-56); Albumin, Serum 3.8 g/dL (3.2-5.0); Alkaline Phosphatase 105 U/L (45-117); Anion Gap 4 (5-15); BUN 16 mg/dL (7-18); BUN/Creat Ratio 17.6 RATIO (10-20); Calcium,Total 8.9 mg/dL (8.5-10.1); Chloride 106 mmol/L (98-107); Creatinine, Serum 0.91 mg/dL (0.55-1.02); EST Glomerular Filtration Rate 65 mL/min (>60); Est Glom Filt Rate - Afr Amer 79 mL/min (>60); Globulin 3.5 g/dL (2.2-4.2); Glucose 112 mg/dL (74-106); Potassium 3.7 mmol/L (3.5-5.1); Protein, Total 7.3 g/dL (6.4-8.2); Sodium Level 140 mmol/L (136-145)
[2020-10-28 10:14] LABS: Absolute Lymphocyte Count 1.48 X10^3/uL (0.83-4.51); Absolute Neutrophil Count 3.4 X10^3/uL (2.0-7.7); Basophil# 0.03 X10^3/uL; Basophil% 0.5 % (0-1); Eosinophil# 0.13 X10^3/uL; Eosinophils% 2.3 % (0-5); Hemoglobin 13.1 g/dL (12.0-15.0); Lymphocyte # 1.48 X10^3/ul (4.0); Lymphocyte % 26.1 % (19-41); Mean Corp Hgb Conc 32.8 g/dL (32-36); Mean Corpuscular Hgb 28.7 pg (27.0-32.0); Mean Corpuscular Volume 87.7 fL (81-99); Mean Platelet Vol. 9.9 fl (6.2-12.0); Monocyte# 0.63 X10^3/uL; Monocyte% 11.1 % (0-10); NRBC Flagged by Analyzer 0 % (0-5); Neutrophil # 3.39 X10^3/uL (2.7-7.7); Neutrophil % 59.6 % (47-70); Platelet Count 218 K/mm3 (150-450); RBC Distribution Width CV 12.1 % (11.6-14.6); RBC Distribution Width SD 39.2 fl (35.1-43.9); Red Blood Count 4.56 M/mm3 (4.2-5.4); White Blood Count 5.7 K/mm3 (4.4-11.0)
== END ==
PROVIDERS: PCP Nurse Practitioner Family; Referring Provider Internal Medicine Rheumatology; Visit Provider Internal Medicine Rheumatology
DX: M06.4 Inflammatory polyarthropathy (principal); Z79.899 Other long term (current) drug therapy; I10 Essential (primary) hypertension; I34.1 Nonrheumatic mitral (valve) prolapse; E78.5 Hyperlipidemia, unspecified; K44.9 Diaphragmatic hernia without obstruction or gangrene
CPT/HCPCS: 36415; 80053; 85025

== ENCOUNTER → 2020-12-01 07:04 | Outpatient (CLI) | payer MEDICARE, SELFPAY ==
[2020-07-25 13:16] VITALS: BMI 26.6
[2020-12-01 09:50] LABS: Hematocrit 39.7 % (37-47); Hemoglobin 12.9 g/dL (12.0-15.0); Mean Corp Hgb Conc 32.5 g/dL (32-36); Mean Corpuscular Hgb 28.8 pg (27.0-32.0); Mean Corpuscular Volume 88.6 fL (81-99); Mean Platelet Vol. 9.8 fl (6.2-12.0); Platelet Count 216 K/mm3 (150-450); RBC Distribution Width CV 12.4 % (11.6-14.6); RBC Distribution Width SD 40.3 fl (35.1-43.9); Red Blood Count 4.48 M/mm3 (4.2-5.4)
[2020-12-01 10:43] LABS: ALB/GLOB Ratio 1.1 RATIO (0.9-2.4); AST(SGOT) 20 U/L (15-37); Alanine Aminotransfer ALT/SGPT 26 U/L (13-56); Albumin, Serum 3.9 g/dL (3.2-5.0); Alkaline Phosphatase 96 U/L (45-117); Anion Gap 5 (5-15); BUN 18 mg/dL (7-18); BUN/Creat Ratio 22.4 RATIO (10-20); Calcium,Total 8.9 mg/dL (8.5-10.1); Chloride 105 mmol/L (98-107); Cholesterol 205 mg/dL (200); EST Glomerular Filtration Rate 75 mL/min (>60); Est Glom Filt Rate - Afr Amer 91 mL/min (>60); Globulin 3.5 g/dL (2.2-4.2); Glucose 103 mg/dL (74-106); High Density Lipoprotein 52 mg/dL; Protein, Total 7.4 g/dL (6.4-8.2); Sodium Level 140 mmol/L (136-145); Triglycerides 129 mg/dL; Very Low Density Lipoprotein 26 mg/dL (5-40)
== END ==
PROVIDERS: PCP Nurse Practitioner Family; Referring Provider Nurse Practitioner Family; Visit Provider Nurse Practitioner Family
DX: E78.5 Hyperlipidemia, unspecified (principal); I10 Essential (primary) hypertension; K21.9 Gastro-esophageal reflux disease without esophagitis
CPT/HCPCS: 36415; 80053; 80061; 82306; 85027

== ENCOUNTER → 2021-01-05 12:12 | Outpatient (CLI) | payer MEDICARE, SELFPAY ==
[2020-07-25 13:16] VITALS: BMI 26.6
[2021-01-05 14:55] LABS: Absolute Lymphocyte Count 0.97 X10^3/uL (0.83-4.51); Absolute Neutrophil Count 5.9 X10^3/uL (2.0-7.7); Basophil# 0.02 X10^3/uL; Basophil% 0.3 % (0-1); Eosinophil# 0.02 X10^3/uL; Eosinophils% 0.3 % (0-5); Hematocrit 38.6 % (37-47); Hemoglobin 12.6 g/dL (12.0-15.0); Lymphocyte # 0.97 X10^3/ul (4.0); Lymphocyte % 13.5 % (19-41); Mean Corp Hgb Conc 32.6 g/dL (32-36); Mean Corpuscular Hgb 28.7 pg (27.0-32.0); Mean Corpuscular Volume 87.9 fL (81-99); Mean Platelet Vol. 9.9 fl (6.2-12.0); Monocyte# 0.28 X10^3/uL; Monocyte% 3.9 % (0-10); NRBC Flagged by Analyzer 0 % (0-5); Neutrophil # 5.85 X10^3/uL (2.7-7.7); Neutrophil % 81.7 % (47-70); Platelet Count 250 K/mm3 (150-450); RBC Distribution Width CV 12.3 % (11.6-14.6); Red Blood Count 4.39 M/mm3 (4.2-5.4); White Blood Count 7.2 K/mm3 (4.4-11.0)
[2021-01-05 15:11] LABS: ALB/GLOB Ratio 1.2 RATIO (0.9-2.4); AST(SGOT) 17 U/L (15-37); Alanine Aminotransfer ALT/SGPT 24 U/L (13-56); Albumin, Serum 4.1 g/dL (3.2-5.0); Alkaline Phosphatase 102 U/L (45-117); Anion Gap 6 (5-15); BUN 26 mg/dL (7-18); BUN/Creat Ratio 28.1 RATIO (10-20); Calcium,Total 9.1 mg/dL (8.5-10.1); Chloride 107 mmol/L (98-107); Creatinine, Serum 0.92 mg/dL (0.55-1.02); EST Glomerular Filtration Rate 64 mL/min (>60); Est Glom Filt Rate - Afr Amer 77 mL/min (>60); Globulin 3.3 g/dL (2.2-4.2); Glucose 115 mg/dL (74-106); Potassium 4.1 mmol/L (3.5-5.1); Protein, Total 7.4 g/dL (6.4-8.2); Sodium Level 139 mmol/L (136-145)
== END ==
PROVIDERS: PCP Nurse Practitioner Family; Referring Provider Internal Medicine Rheumatology; Visit Provider Internal Medicine Rheumatology
DX: M06.4 Inflammatory polyarthropathy (principal); Z79.899 Other long term (current) drug therapy; I10 Essential (primary) hypertension; I34.1 Nonrheumatic mitral (valve) prolapse; E78.5 Hyperlipidemia, unspecified; K44.9 Diaphragmatic hernia without obstruction or gangrene
CPT/HCPCS: 36415; 80053; 85025

== ENCOUNTER → 2021-01-22 12:17 | Outpatient (CLI) | payer MEDICARE, SELFPAY ==
[2020-07-25 13:16] VITALS: BMI 26.6
--- NOTE | 2021-01-22 12:25 | BD_ITS ---
STUDY: DUAL ENERGY X-RAY ABSORPTIOMETRY / DXA REASON FOR EXAM: Female, 70 years old. Z780 TECHNIQUE: Bone Mineral Density (BMD) measurements of lumbar spine and bilateral hips were obtained. COMPARISON: Comparison is made with prior study dated 11/05/2014. FINDINGS: Lumbar Spine (L1-L4): g/cm2 (0.943) / T-score (-1.9) / Z-score (0.2) Findings are suggestive of osteopenia with a moderate fracture risk. Increased kyphosis. Left Femur Total: g/cm2 (0.849) / T-score (-1.3) / Z-score (0.2) Left Femoral Neck: g/cm2 (0.749) / T-score (-2.1) / Z-score (-0.4) Right Femur Total: g/cm2 (0.850) / T-score (-1.3) / Z-score (0.2) Right Femoral Neck: g/cm2 (0.808) / T-score (-1.7) / Z-score (0.1) The T-Scores on the most recent prior examination were: Lumbar Spine (L1-L4): There has been worsening of bone density since the previous examination. Left Femur Total: which represents a worsening of 6.3%. Right Femur Total: which represents a worsening of 3.8%. BD/Dexa Bone Density Study IMPRESSION: The patient is considered osteopenic as outlined below according to World Tristian Organization (WHO) criteria with a moderate fracture risk. There has been worsening of bone density since the previous examination. Reference Information: The T-score is the number of standard deviations above or below the standard which is normal for young adults at their peak bone mineral density. The World Health Organization (WHO) interprets the T-scores as follows: Above -1 Normal bone density Between -1 and -2.5 Osteopenia Equal to / or below -2.5 Osteoporosis As a practical clinical guideline, osteopenia may be graded as follows: Mild -1 through -1.5 Moderate -1.6 through -2.0 Severe -2.1 through -2.4 The Z-score is the number of standard deviations above or below age-matched controls. A Z-score of less than -1.5 would be considered abnormal. References: 1. NIH Osteoporosis and Related Bone Diseases www osteo.org 2. International Society for Clinical Densitometry www iscd.org 3. National Osteoporosis Foundation www nof.org Electronically Signed: Robin Hahn MD at 14:58 EDT , Service support ,
== END ==
PROVIDERS: PCP Nurse Practitioner Family; Referring Provider Nurse Practitioner Family; Visit Provider Nurse Practitioner Family
DX: Z78.0 Asymptomatic menopausal state (principal)
CPT/HCPCS: 77080

== ENCOUNTER → 2021-05-11 11:37 | Outpatient (CLI) | payer MEDICARE, SELFPAY ==
[2020-07-25 13:16] VITALS: BMI 26.6
[2021-05-11 15:03] LABS: Absolute Lymphocyte Count 1.71 X10^3/uL (0.83-4.51); Absolute Neutrophil Count 2.6 X10^3/uL (2.0-7.7); Basophil# 0.02 X10^3/uL; Basophil% 0.4 % (0-1); Eosinophil# 0.06 X10^3/uL; Eosinophils% 1.2 % (0-5); Hematocrit 40.6 % (37-47); Hemoglobin 13.1 g/dL (12.0-15.0); Lymphocyte # 1.71 X10^3/ul (0.83-4.51); Lymphocyte % 34.8 % (19-41); Mean Corp Hgb Conc 32.3 g/dL (32-36); Mean Corpuscular Hgb 28.5 pg (27.0-32.0); Mean Corpuscular Volume 88.3 fL (81-99); Mean Platelet Vol. 10.2 fl (6.2-12.0); Monocyte# 0.54 X10^3/uL; NRBC Flagged by Analyzer 0 % (0-5); Neutrophil # 2.57 X10^3/uL (2.7-7.7); Neutrophil % 52.2 % (47-70); Platelet Count 219 K/mm3 (150-450); RBC Distribution Width CV 12.7 % (11.6-14.6); RBC Distribution Width SD 41.1 fl (35.1-43.9); White Blood Count 4.9 K/mm3 (4.4-11.0)
[2021-05-11 15:34] LABS: ALB/GLOB Ratio 1.2 RATIO (0.9-2.4); AST(SGOT) 19 U/L (15-37); Alanine Aminotransfer ALT/SGPT 29 U/L (13-56); Albumin, Serum 3.9 g/dL (3.2-5.0); Alkaline Phosphatase 94 U/L (45-117); Anion Gap 3 (5-15); BUN 17 mg/dL (7-18); Calcium,Total 8.9 mg/dL (8.5-10.1); Chloride 105 mmol/L (98-107); Creatinine, Serum 0.81 mg/dL (0.55-1.02); EST Glomerular Filtration Rate 74 mL/min (>60); Est Glom Filt Rate - Afr Amer 90 mL/min (>60); Globulin 3.3 g/dL (2.2-4.2); Glucose 93 mg/dL (74-106); Protein, Total 7.2 g/dL (6.4-8.2); Sodium Level 141 mmol/L (136-145)
== END ==
PROVIDERS: PCP Nurse Practitioner Family; Referring Provider Internal Medicine Rheumatology; Visit Provider Internal Medicine Rheumatology
DX: M06.4 Inflammatory polyarthropathy (principal); Z79.899 Other long term (current) drug therapy; I10 Essential (primary) hypertension; I34.1 Nonrheumatic mitral (valve) prolapse; E78.5 Hyperlipidemia, unspecified; K44.9 Diaphragmatic hernia without obstruction or gangrene
CPT/HCPCS: 36415; 80053; 85025

== ENCOUNTER → 2021-06-02 07:07 | Outpatient (CLI) | payer MEDICARE, SELFPAY ==
[2021-06-02 09:58] LABS: Hematocrit 41.2 % (37-47); Hemoglobin 13.1 g/dL (12.0-15.0); Mean Corp Hgb Conc 31.8 g/dL (32-36); Mean Corpuscular Hgb 28.6 pg (27.0-32.0); Mean Platelet Vol. 9.9 fl (6.2-12.0); Platelet Count 205 K/mm3 (150-450); RBC Distribution Width CV 12.7 % (11.6-14.6); RBC Distribution Width SD 41.9 fl (35.1-43.9); Red Blood Count 4.58 M/mm3 (4.2-5.4); White Blood Count 4.5 K/mm3 (4.4-11.0)
[2021-06-02 10:21] LABS: ALB/GLOB Ratio 1.1 RATIO (0.9-2.4); AST(SGOT) 20 U/L (15-37); Alanine Aminotransfer ALT/SGPT 26 U/L (13-56); Albumin, Serum 3.9 g/dL (3.2-5.0); Alkaline Phosphatase 95 U/L (45-117); Anion Gap 4 (5-15); BUN 16 mg/dL (7-18); BUN/Creat Ratio 19.9 RATIO (10-20); Chloride 106 mmol/L (98-107); Cholesterol 176 mg/dL (200); EST Glomerular Filtration Rate 75 mL/min (>60); Est Glom Filt Rate - Afr Amer 91 mL/min (>60); Globulin 3.7 g/dL (2.2-4.2); Glucose 95 mg/dL (74-106); High Density Lipoprotein 49 mg/dL; Protein, Total 7.6 g/dL (6.4-8.2); Sodium Level 140 mmol/L (136-145); Triglycerides 85 mg/dL; Very Low Density Lipoprotein 17 mg/dL (5-40)
== END ==
PROVIDERS: PCP Nurse Practitioner Family; Referring Provider Nurse Practitioner Family; Visit Provider Nurse Practitioner Family
DX: I10 Essential (primary) hypertension (principal); E78.5 Hyperlipidemia, unspecified; E55.9 Vitamin D deficiency, unspecified
CPT/HCPCS: 36415; 80053; 80061; 82306; 85027

== ENCOUNTER → 2021-07-28 12:29 | Outpatient (CLI) | payer MEDICARE, SELFPAY ==
[2021-07-28 15:01] LABS: Absolute Lymphocyte Count 1.67 X10^3/uL (0.83-4.51); Absolute Neutrophil Count 2.4 X10^3/uL (2.0-7.7); Basophil# 0.02 X10^3/uL; Basophil% 0.4 % (0-1); Eosinophil# 0.08 X10^3/uL; Eosinophils% 1.7 % (0-5); Hematocrit 37.6 % (37-47); Hemoglobin 12.5 g/dL (12.0-15.0); Lymphocyte # 1.67 X10^3/ul (0.83-4.51); Lymphocyte % 34.6 % (19-41); Mean Corp Hgb Conc 33.2 g/dL (32-36); Mean Corpuscular Hgb 29.9 pg (27.0-32.0); Mean Platelet Vol. 10.1 fl (6.2-12.0); Monocyte# 0.63 X10^3/uL; NRBC Flagged by Analyzer 0 % (0-5); Neutrophil # 2.42 X10^3/uL (2.7-7.7); Neutrophil % 50.1 % (47-70); Platelet Count 214 K/mm3 (150-450); RBC Distribution Width CV 12.7 % (11.6-14.6); RBC Distribution Width SD 41.8 fl (35.1-43.9); Red Blood Count 4.18 M/mm3 (4.2-5.4); White Blood Count 4.8 K/mm3 (4.4-11.0)
[2021-07-28 15:28] LABS: ALB/GLOB Ratio 1.1 RATIO (0.9-2.4); AST(SGOT) 18 U/L (15-37); Alanine Aminotransfer ALT/SGPT 24 U/L (13-56); Albumin, Serum 3.8 g/dL (3.2-5.0); Alkaline Phosphatase 85 U/L (45-117); Anion Gap 6 (5-15); BUN 20 mg/dL (7-18); BUN/Creat Ratio 22.5 RATIO (10-20); Calcium,Total 8.9 mg/dL (8.5-10.1); Chloride 102 mmol/L (98-107); Creatinine, Serum 0.89 mg/dL (0.55-1.02); EST Glomerular Filtration Rate 67 mL/min (>60); Est Glom Filt Rate - Afr Amer 81 mL/min (>60); Globulin 3.5 g/dL (2.2-4.2); Glucose 97 mg/dL (74-106); Potassium 4.4 mmol/L (3.5-5.1); Protein, Total 7.3 g/dL (6.4-8.2); Sodium Level 138 mmol/L (136-145)
== END ==
PROVIDERS: PCP Nurse Practitioner Family; Referring Provider Internal Medicine Rheumatology; Visit Provider Internal Medicine Rheumatology
DX: M06.4 Inflammatory polyarthropathy (principal); Z79.899 Other long term (current) drug therapy; I10 Essential (primary) hypertension; I34.1 Nonrheumatic mitral (valve) prolapse; E78.5 Hyperlipidemia, unspecified; K44.9 Diaphragmatic hernia without obstruction or gangrene
CPT/HCPCS: 36415; 80053; 85025

== ENCOUNTER 2021-12-01 07:20 | Outpatient (CLI) | payer MEDICARE, SELFPAY ==
[2021-12-01 09:55] LABS: Hematocrit 38.7 % (37-47); Hemoglobin 12.7 g/dL (12.0-15.0); Mean Corp Hgb Conc 32.8 g/dL (32-36); Mean Corpuscular Hgb 29.3 pg (27.0-32.0); Mean Corpuscular Volume 89.4 fL (81-99); Mean Platelet Vol. 9.6 fl (6.2-12.0); Platelet Count 198 K/mm3 (150-450); RBC Distribution Width CV 12.3 % (11.6-14.6); RBC Distribution Width SD 40.3 fl (35.1-43.9); Red Blood Count 4.33 M/mm3 (4.2-5.4); White Blood Count 4.6 K/mm3 (4.4-11.0)
[2021-12-01 10:09] LABS: Vitamin D,25 Hydroxy 85.4 ng/mL
[2021-12-01 10:16] LABS: BUN 18 mg/dL (7-18); Creatinine, Serum 0.86 mg/dL (0.55-1.02); Glucose 103 mg/dL (74-106)
[2021-12-01 10:17] LABS: ALB/GLOB Ratio 1.1 RATIO (0.9-2.4); AST(SGOT) 18 U/L (15-37); Alanine Aminotransfer ALT/SGPT 27 U/L (13-56); Alkaline Phosphatase 98 U/L (45-117); Anion Gap 7 (5-15); BUN/Creat Ratio 20.8 RATIO (10-20); Calcium,Total 9.3 mg/dL (8.5-10.1); Chloride 102 mmol/L (98-107); Cholesterol 190 mg/dL (200); EST Glomerular Filtration Rate 69 mL/min (>60); Est Glom Filt Rate - Afr Amer 83 mL/min (>60); Globulin 3.5 g/dL (2.2-4.2); High Density Lipoprotein 52 mg/dL; Protein, Total 7.5 g/dL (6.4-8.2); Sodium Level 138 mmol/L (136-145); Triglycerides 88 mg/dL; Very Low Density Lipoprotein 18 mg/dL (5-40)
== END 2021-12-01 23:59 | disposition home or self-care (01) ==
LOC: MTLAB 07:20
PROVIDERS: PCP Nurse Practitioner Family; Referring Provider Nurse Practitioner Family; Visit Provider Nurse Practitioner Family
DX: I10 Essential (primary) hypertension (principal); J45.909 Unspecified asthma, uncomplicated; E78.5 Hyperlipidemia, unspecified; E55.9 Vitamin D deficiency, unspecified
CPT/HCPCS: 36415; 80053; 80061; 82306; 85027

== ENCOUNTER 2022-01-19 08:02 | Outpatient (CLI) | payer MEDICARE, SELFPAY ==
[2022-01-19 10:23] LABS: Absolute Lymphocyte Count 1.44 X10^3/uL (0.83-4.51); Absolute Neutrophil Count 2.7 X10^3/uL (2.0-7.7); Basophil# 0.02 X10^3/uL; Basophil% 0.4 % (0-1); Eosinophil# 0.17 X10^3/uL; Eosinophils% 3.5 % (0-5); Hematocrit 39.7 % (37-47); Hemoglobin 12.9 g/dL (12.0-15.0); Lymphocyte # 1.44 X10^3/ul (0.83-4.51); Lymphocyte % 29.8 % (19-41); Mean Corp Hgb Conc 32.5 g/dL (32-36); Mean Corpuscular Hgb 29.2 pg (27.0-32.0); Mean Corpuscular Volume 89.8 fL (81-99); Mean Platelet Vol. 9.7 fl (6.2-12.0); Monocyte# 0.51 X10^3/uL; Monocyte% 10.5 % (0-10); NRBC Flagged by Analyzer 0 % (0-5); Neutrophil # 2.67 X10^3/uL (2.7-7.7); Neutrophil % 55.2 % (47-70); Platelet Count 215 K/mm3 (150-450); RBC Distribution Width CV 12.2 % (11.6-14.6); Red Blood Count 4.42 M/mm3 (4.2-5.4); White Blood Count 4.8 K/mm3 (4.4-11.0)
[2022-01-19 10:47] LABS: ALB/GLOB Ratio 1.2 RATIO (0.9-2.4); AST(SGOT) 24 U/L (15-37); Alanine Aminotransfer ALT/SGPT 32 U/L (13-56); Albumin, Serum 3.8 g/dL (3.2-5.0); Alkaline Phosphatase 93 U/L (45-117); Anion Gap 6 (5-15); BUN 18 mg/dL (7-18); BUN/Creat Ratio 22.2 RATIO (10-20); Calcium,Total 8.5 mg/dL (8.5-10.1); Chloride 105 mmol/L (98-107); Creatinine, Serum 0.81 mg/dL (0.55-1.02); EST Glomerular Filtration Rate 74 mL/min (>60); Est Glom Filt Rate - Afr Amer 89 mL/min (>60); Globulin 3.3 g/dL (2.2-4.2); Glucose 97 mg/dL (74-106); Potassium 3.8 mmol/L (3.5-5.1); Protein, Total 7.1 g/dL (6.4-8.2); Sodium Level 140 mmol/L (136-145)
== END 2022-01-19 23:59 | disposition home or self-care (01) ==
LOC: MTLAB 08:03
PROVIDERS: PCP Nurse Practitioner Family; Referring Provider Internal Medicine Rheumatology; Visit Provider Internal Medicine Rheumatology
DX: M06.4 Inflammatory polyarthropathy (principal); Z79.899 Other long term (current) drug therapy; I10 Essential (primary) hypertension; I34.1 Nonrheumatic mitral (valve) prolapse; E78.5 Hyperlipidemia, unspecified; K44.9 Diaphragmatic hernia without obstruction or gangrene
CPT/HCPCS: 36415; 80053; 85025

== ENCOUNTER → 2022-04-22 | Outpatient (CLI) | payer MEDICARE, SELFPAY ==
[2022-04-22 12:02] LABS: Absolute Lymphocyte Count 1.79 X10^3/uL (0.83-4.51); Absolute Neutrophil Count 2.1 X10^3/uL (2.0-7.7); Basophil# 0.03 X10^3/uL; Basophil% 0.6 % (0-1); Eosinophils% 4.2 % (0-5); Hematocrit 38.7 % (37-47); Hemoglobin 12.8 g/dL (12.0-15.0); Lymphocyte # 1.79 X10^3/ul (0.83-4.51); Lymphocyte % 37.4 % (19-41); Mean Corp Hgb Conc 33.1 g/dL (32-36); Mean Corpuscular Hgb 29.1 pg (27.0-32.0); Mean Platelet Vol. 9.8 fl (6.2-12.0); Monocyte# 0.61 X10^3/uL; Monocyte% 12.7 % (0-10); NRBC Flagged by Analyzer 0 % (0-5); Neutrophil # 2.14 X10^3/uL (2.7-7.7); Neutrophil % 44.7 % (47-70); Platelet Count 197 K/mm3 (150-450); RBC Distribution Width CV 12.6 % (11.6-14.6); RBC Distribution Width SD 40.7 fl (35.1-43.9); White Blood Count 4.8 K/mm3 (4.4-11.0)
[2022-04-22 12:41] LABS: ALB/GLOB Ratio 1.1 RATIO (0.9-2.4); AST(SGOT) 18 U/L (15-37); Alanine Aminotransfer ALT/SGPT 25 U/L (13-56); Albumin, Serum 3.8 g/dL (3.2-5.0); Alkaline Phosphatase 86 U/L (45-117); Anion Gap 3 (5-15); BUN 15 mg/dL (7-18); BUN/Creat Ratio 17.9 RATIO (10-20); Calcium,Total 9.3 mg/dL (8.5-10.1); Chloride 104 mmol/L (98-107); Creatinine, Serum 0.84 mg/dL (0.55-1.02); EST Glomerular Filtration Rate 71 mL/min (>60); Est Glom Filt Rate - Afr Amer 86 mL/min (>60); Globulin 3.5 g/dL (2.2-4.2); Glucose 97 mg/dL (74-106); Potassium 3.9 mmol/L (3.5-5.1); Protein, Total 7.3 g/dL (6.4-8.2); Sodium Level 138 mmol/L (136-145)
== END | disposition home or self-care (01) ==
LOC: MTLAB 10:07
PROVIDERS: PCP Nurse Practitioner Family; Referring Provider Internal Medicine Rheumatology; Visit Provider Internal Medicine Rheumatology
DX: M06.4 Inflammatory polyarthropathy (principal); Z79.899 Other long term (current) drug therapy; I10 Essential (primary) hypertension; I34.1 Nonrheumatic mitral (valve) prolapse; E78.5 Hyperlipidemia, unspecified; K44.9 Diaphragmatic hernia without obstruction or gangrene
CPT/HCPCS: 36415; 80053; 85025

== ENCOUNTER → 2022-05-31 | Outpatient (CLI) | payer MEDICARE, SELFPAY ==
[2022-05-31 10:16] LABS: Vitamin D,25 Hydroxy 76.9 ng/mL
[2022-05-31 10:35] LABS: ALB/GLOB Ratio 1.1 RATIO (0.9-2.4); AST(SGOT) 21 U/L (15-37); Alanine Aminotransfer ALT/SGPT 28 U/L (13-56); Albumin, Serum 3.8 g/dL (3.2-5.0); Alkaline Phosphatase 90 U/L (45-117); Anion Gap 6 (5-15); BUN 15 mg/dL (7-18); BUN/Creat Ratio 17.1 RATIO (10-20); Calcium,Total 8.7 mg/dL (8.5-10.1); Chloride 105 mmol/L (98-107); Cholesterol 200 mg/dL (200); Creatinine, Serum 0.88 mg/dL (0.55-1.02); EST Glomerular Filtration Rate 68 mL/min (>60); Est Glom Filt Rate - Afr Amer 82 mL/min (>60); Globulin 3.5 g/dL (2.2-4.2); Glucose 107 mg/dL (74-106); High Density Lipoprotein 42 mg/dL; Potassium 3.9 mmol/L (3.5-5.1); Protein, Total 7.3 g/dL (6.4-8.2); Sodium Level 139 mmol/L (136-145); Triglycerides 191 mg/dL; Very Low Density Lipoprotein 38 mg/dL (5-40)
== END | disposition home or self-care (01) ==
LOC: MTLAB 08:11
PROVIDERS: PCP Nurse Practitioner Family; Referring Provider Nurse Practitioner Family; Visit Provider Nurse Practitioner Family
DX: I10 Essential (primary) hypertension (principal); E78.5 Hyperlipidemia, unspecified; E55.9 Vitamin D deficiency, unspecified
CPT/HCPCS: 36415; 80053; 80061; 82306

== ENCOUNTER → 2022-06-30 | Outpatient (CLI) | payer MEDICARE, SELFPAY ==
--- NOTE | 2022-06-30 14:32 | ECHOD_ITS ---
Version 2 Reason For Study: HTN with Palpitations Procedure This was a 2D Doppler, Color Flow transthoracic echocardiogram. The study was technically difficult. Exam performed in department. Left Ventricle Normal LV size. Left ventricular systolic function is normal. The estimated ejection fraction is 60 %. Stage 1 diastolic dysfunction. No regional wall motion abnormalities noted. Right Ventricle Normal RV size. Normal systolic function. Atria Normal left atrium. Normal right atrium. Mitral Valve Normal mitral valve. Tricuspid Valve Normal tricuspid valve. Mild tricuspid valve insufficiency. Pulmonary artery systolic pressure is 35 mmHg. Aortic Valve Trisinus/trileaflet aortic valve. Pulmonic Valve Normal pulmonic valve. Great Vessels Normal aortic root. The pulmonary artery is normal size. Normal inferior vena cava. Pericardium/Pleural No pericardial effusion. MMode/2D Measurements & Calculations LVIDd: 4.0 cm IVSd: 0.95 cm Ao root diam: 3.2 cm LVIDs: 2.3 cm LVPWd: 1.1 cm LA dimension: 4.0 cm FS: 42.0 % LAV(MOD-bp): 31.5 ml LA A4 area: 12.2 cm2 RA A4 area: 12.6 cm2 LAV(MOD-bp) Indexed: 16.9 ml/m2 LAV(MOD-sp2): 33.9 ml LAV(MOD-sp4): 29.1 ml Time Measurements MV dec time: 0.19 sec Doppler Measurements & Calculations MV E max kristian: 40.1 cm/sec Lat Peak E' Kristian: 9.2 cm/sec Med Peak E' Kristian: 6.1 cm/sec MV A max kristian: 88.6 cm/sec E/E' lat: 4.4 E/E' med: 6.6 MV E/A: 0.45 MV V2 max: 95.9 cm/sec MV P1/2t max kristian: 59.7 cm/sec Ao V2 max: 84.8 cm/sec MV max P.7 mmHg MV P1/2t: 64.0 msec Ao max P.9 mmHg MV V2 mean: 54.9 cm/sec MV dec slope: 273.1 cm/sec2 MV mean P.4 mmHg MVA(P1/2t): 3.4 cm2 MV V2 VTI: 12.8 cm LV V1 max: 77.0 cm/sec PA V2 max: 85.5 cm/sec TR max kristian: 238.9 cm/sec LV V1 max P.4 mmHg TR max P.8 mmHg ECHO/Echo Complete Interpretation Summary Normal LV size. Left ventricular systolic function is normal. The estimated ejection fraction is 60 %. Stage 1 diastolic dysfunction. Pulmonary artery systolic pressure is 35 mmHg. Structurally normal valves. Ordering Physician: Krzysztof Moore Referring Physician: Krzysztof Moore Performed By: Douglas Leonardo RCS
--- NOTE | 2022-06-30 14:36 | RAD_ITS ---
STUDY: X-RAY - THORACIC SPINE REASON FOR EXAM: Female, 71 years old. Back pain. TECHNIQUE: 3 view(s) of the thoracic spine were obtained. COMPARISON: Interval 2018. FINDINGS: Osteopenia. Normal kyphosis of the thoracic spine. There is no substantial scoliosis. Diffuse intervertebral disc space narrowing with small osteophytes, unchanged from prior study. The soft tissue structures are unremarkable. RAD/Thoracic Spine 2 Views IMPRESSION: Stable osteopenia with diffuse mild thoracolumbar spondylosis. No acute abnormality, evidence of erosive changes or fusion. Electronically Signed: Enoc Kirkpatrick, at 10:00 EDT ,
--- NOTE | 2022-06-30 15:02 | RAD_ITS ---
STUDY: X-RAY - LUMBAR SPINE REASON FOR EXAM: Female, 71 years old. BACK TECHNIQUE: 5 view(s) of the lumbar spine were obtained. COMPARISON: None FINDINGS: Normal lumbar lordosis. There is no substantial scoliosis. There is a normal alignment of the vertebrae. No evidence for acute fracture or subluxation. There does appear to be mild multilevel chronic wedging of superior endplates of L2, L3 and L4. Mild multilevel disc space narrowing and endplate spurring.. Diffuse vascular calcification without evidence for aneurysm. RAD/L/S Spine Min 4 Views IMPRESSION: Spondylosis and mild multilevel chronic wedging endplate deformities. No definitive evidence for acute fracture however CT or MRI would be useful for further assessment if clinically warranted Electronically Signed: Bradley Woodall MD at 17:54 EDT ,
== END | disposition home or self-care (01) ==
PROVIDERS: PCP Nurse Practitioner Family; Referring Provider Nurse Practitioner Family; Visit Provider Nurse Practitioner Family
DX: R00.2 Palpitations (principal); I10 Essential (primary) hypertension; M54.9 Dorsalgia, unspecified
CPT/HCPCS: 72070; 72110; 93306

== ENCOUNTER → 2022-07-19 | Outpatient (CLI) | payer MEDICARE, SELFPAY ==
--- NOTE | 2022-07-19 09:02 | STRESSREP ---
Stress Test Report Exercise myocardial perfusion stress test. 71-year-old lady with a history of chest pain. Stress protocol: Resting EKG demonstrates sinus rhythm with a rate of 69 bpm normal intervals are noted resting blood pressure is 122/80 mmHg. The patient exercised according to regular Dano protocol for a total duration of 6 minutes. The maximum heart rate was 144 bpm which was 96% of max impacted heart rate the maximum workload was 7 metabolic equivalents. At rest there were no ST or T wave changes noted suggest ischemia and at peak exercise upsloping ST changes were noted we did not meet the criteria for ischemia. No clinical angina was noted no arrhythmias were noted the test was terminated due to the target heart rate being achieved. The peak blood pressure was 148/82 mmHg. Myocardial perfusion protocol. 11.8 mCi of technetium 99m sestamibi was injected at rest. The patient exercised according to regular Dano protocol and at peak exercise 36.0 mCi of technetium 99m sestamibi was injected stress images were obtained stress and rest images were reconstructed and compared in the short axis vertical long and horizontal long images were obtained. Gated images were also obtained. Perfusion SPECT analysis: Review of the stress images demonstrate normal uptake of tracer noted in all areas of the myocardium. The resting images similar demonstrate normal uptake of tracer noted in all areas of the myocardium. No reversibility is noted to suggest ischemia and no previous infarct is noted. Gated SPECT analysis: The gated ejection fraction is 71%. Conclusion: Normal exercise myocardial perfusion stress test at a high workload. Preserved ejection fraction.
== END | disposition home or self-care (01) ==
LOC: CVS 06:17
PROVIDERS: PCP Nurse Practitioner Family; Visit Provider Physician Assistant Medical
DX: R07.9 Chest pain, unspecified (principal)
CPT/HCPCS: 78452; 93017; A9500; A4216

== ENCOUNTER → 2022-07-20 | Outpatient (CLI) | payer MEDICARE, SELFPAY ==
[2022-07-20 10:17] LABS: Absolute Lymphocyte Count 1.75 X10^3/uL (0.83-4.51); Absolute Neutrophil Count 2.9 X10^3/uL (2.0-7.7); Basophil# 0.03 X10^3/uL; Basophil% 0.6 % (0-1); Eosinophil# 0.19 X10^3/uL; Eosinophils% 3.6 % (0-5); Hematocrit 40.7 % (37-47); Hemoglobin 13.1 g/dL (12.0-15.0); Lymphocyte # 1.75 X10^3/ul (0.83-4.51); Mean Corp Hgb Conc 32.2 g/dL (32-36); Mean Corpuscular Hgb 29.2 pg (27.0-32.0); Mean Corpuscular Volume 90.6 fL (81-99); Monocyte# 0.42 X10^3/uL; Monocyte% 7.9 % (0-10); NRBC Flagged by Analyzer 0 % (0-5); Neutrophil % 54.5 % (47-70); Platelet Count 211 K/mm3 (150-450); RBC Distribution Width CV 12.3 % (11.6-14.6); RBC Distribution Width SD 40.7 fl (35.1-43.9); Red Blood Count 4.49 M/mm3 (4.2-5.4); White Blood Count 5.3 K/mm3 (4.4-11.0)
[2022-07-20 10:50] LABS: AST(SGOT) 18 U/L (15-37); Alanine Aminotransfer ALT/SGPT 22 U/L (13-56); Albumin, Serum 3.7 g/dL (3.2-5.0); Alkaline Phosphatase 105 U/L (45-117); Anion Gap 4 (5-15); BUN 20 mg/dL (7-18); BUN/Creat Ratio 23.6 RATIO (10-20); Calcium,Total 9.1 mg/dL (8.5-10.1); Chloride 107 mmol/L (98-107); Creatinine, Serum 0.85 mg/dL (0.55-1.02); EST Glomerular Filtration Rate 70 mL/min (>60); Est Glom Filt Rate - Afr Amer 85 mL/min (>60); Globulin 3.7 g/dL (2.2-4.2); Glucose 100 mg/dL (74-106); Potassium 4.5 mmol/L (3.5-5.1); Protein, Total 7.4 g/dL (6.4-8.2); Sodium Level 140 mmol/L (136-145)
== END | disposition home or self-care (01) ==
LOC: MTLAB 08:06
PROVIDERS: PCP Nurse Practitioner Family; Referring Provider Internal Medicine Rheumatology; Visit Provider Internal Medicine Rheumatology
DX: M06.4 Inflammatory polyarthropathy (principal); Z79.899 Other long term (current) drug therapy; I10 Essential (primary) hypertension; I34.1 Nonrheumatic mitral (valve) prolapse; E78.5 Hyperlipidemia, unspecified; K44.9 Diaphragmatic hernia without obstruction or gangrene
CPT/HCPCS: 36415; 80053; 85025

== ENCOUNTER → 2022-09-20 | Outpatient (CLI) | payer MEDICARE, SELFPAY ==
--- NOTE | 2022-09-20 16:31 | NEURO_ITS ---
NCS and/or EMG Patient Report Ordering Doctor: Bradley Scott DATE OF SERVICE: 09/20/22 Indication: Bilateral lower extremity fatigue and heaviness. Intermittent numbness and tingling of both lower extremities. Findings: Nerve conduction studies were performed in the bilateral lower extremities. The right peroneal motor study recording the extensor digitorum brevis showed a normal amplitude, normal distal latency and normal conduction velocity. No conduction block or focal slowing was present across the fibular neck. The right tibial motor study recording the abductor hallucis brevis showed a normal amplitude, normal distal latency and normal conduction velocity. The right sural sensory response showed a normal amplitude and conduction velocity. The right superficial peroneal sensory response showed a normal amplitude and conduction velocity. The left peroneal motor study recording the extensor digitorum brevis showed a normal amplitude, normal distal latency and normal conduction velocity. No conduction block or focal slowing was present across the fibular neck. The left tibial motor study recording the abductor hallucis brevis showed a normal amplitude, normal distal latency and normal conduction velocity. The left sural sensory response showed a normal amplitude and conduction veloc ity. The left superficial peroneal sensory response showed a normal amplitude and conduction velocity. Needle EMG of the right lower extremity muscles was performed. No denervation was present in any muscle. Motor unit morphology, activation, and recruitment patterns were normal. Impression: This is a normal study. There is no electrophysiologic evidence of peripheral neuropathy. In addition, there was no electrophysiologic evidence of active or chronic lumbar radiculopathy. Please note: routine nerve conduction studies and needle EMG assess the larger, myelinated motor and sensory fibers. Thus, routine electrodiagnostic studies may be insensitive in detecting a peripheral neuropathy restricted to small fibers alone (i.e., pain, temperature and autonomic fibers). However, most peripheral neuropathies with predominantly small fiber large dysfunction will also involve large fibers to a lesser extent, and will demonstrate abnormalities on electrodiagnostic studies. Thus, clinical correlation is required in the interpretation of this negative electrodiagnostic study if an isolated small fiber neuropathy is considered. Evgeny Lofton D.O. Multi Select Codes Neurology Neurology Interp Codes: 99939-69 Musc test done w/n test comp (interp) and 98646-83 Nrv cndj test 7-8 studies (interp)
== END | disposition home or self-care (01) ==
LOC: PSN 14:15
PROVIDERS: PCP Nurse Practitioner Family; Referring Provider Orthopaedic Surgery; Visit Provider Orthopaedic Surgery
DX: G62.9 Polyneuropathy, unspecified (principal); M47.26 Other spondylosis with radiculopathy, lumbar region; R20.2 Paresthesia of skin
CPT/HCPCS: 95886; 95911

== ENCOUNTER → 2022-10-12 | Outpatient (CLI) | payer MEDICARE, SELFPAY ==
[2022-10-12 12:18] LABS: Absolute Neutrophil Count 3.9 X10^3/uL (2.0-7.7); Basophil# 0.04 X10^3/uL; Basophil% 0.6 % (0-1); Eosinophil# 0.11 X10^3/uL; Eosinophils% 1.8 % (0-5); Hematocrit 42.7 % (37-47); Hemoglobin 13.7 g/dL (12.0-15.0); Lymphocyte % 25.5 % (19-41); Mean Corp Hgb Conc 32.1 g/dL (32-36); Mean Corpuscular Hgb 28.5 pg (27.0-32.0); Monocyte# 0.59 X10^3/uL; Monocyte% 9.4 % (0-10); NRBC Flagged by Analyzer 0 % (0-5); Neutrophil # 3.91 X10^3/uL (2.7-7.7); Neutrophil % 62.4 % (47-70); Platelet Count 237 K/mm3 (150-450); RBC Distribution Width CV 12.6 % (11.6-14.6); RBC Distribution Width SD 41.1 fl (35.1-43.9); White Blood Count 6.3 K/mm3 (4.4-11.0)
[2022-10-12 12:38] LABS: ALB/GLOB Ratio 1.3 RATIO (0.9-2.4); AST(SGOT) 15 U/L (15-37); Alanine Aminotransfer ALT/SGPT 21 U/L (13-56); Albumin, Serum 4.2 g/dL (3.2-5.0); Alkaline Phosphatase 89 U/L (45-117); Anion Gap 5 (5-15); BUN 19 mg/dL (7-18); BUN/Creat Ratio 21.8 RATIO (10-20); Calcium,Total 9.8 mg/dL (8.5-10.1); Chloride 106 mmol/L (98-107); Creatinine, Serum 0.87 mg/dL (0.55-1.02); EST Glomerular Filtration Rate 68 mL/min (>60); Est Glom Filt Rate - Afr Amer 82 mL/min (>60); Globulin 3.2 g/dL (2.2-4.2); Glucose 105 mg/dL (74-106); Potassium 4.2 mmol/L (3.5-5.1); Protein, Total 7.4 g/dL (6.4-8.2); Sodium Level 142 mmol/L (136-145)
== END | disposition home or self-care (01) ==
LOC: MTLAB 10:46
PROVIDERS: PCP Nurse Practitioner Family; Referring Provider Internal Medicine Rheumatology; Visit Provider Internal Medicine Rheumatology
DX: M06.4 Inflammatory polyarthropathy (principal); Z79.899 Other long term (current) drug therapy; I10 Essential (primary) hypertension; E78.5 Hyperlipidemia, unspecified
CPT/HCPCS: 36415; 80053; 85025

== ENCOUNTER → 2022-10-19 | Outpatient (CLI) | payer MEDICARE, SELFPAY ==
--- NOTE | 2022-10-19 14:08 | RAD_ITS ---
INDICATION: SINUS PAIN EXAMINATION/TECHNIQUE: X-RAY - XR Sinuses Paranasal Min 3 Views COMPARISON: None. FINDINGS: 3 views of the paranasal sinuses were obtained. A fluid level is in the right maxillary sinus. Mucosal thickening or mild fluid within the left maxillary sinus. No acute fracture. No fluid within the mastoid air cells bilaterally. RAD/Sinuses min 3 Views IMPRESSION: Maxillary sinus disease. Electronically Signed: Ousmane Bowles MD at 5:00 EST ,
--- NOTE | 2022-10-19 14:10 | RAD_ITS ---
INDICATION: COUGH EXAMINATION: Frontal and lateral views of the chest. COMPARISON: None. FINDINGS: Frontal and lateral views of the chest were obtained. The cardiac silhouette is not enlarged. No confluent airspace disease. No pleural effusion or pneumothorax. Mild scoliosis. No acute fracture identified. RAD/Chest PA and Lateral IMPRESSION: No acute pulmonary disease. Electronically Signed: Ousmane Bowles MD at 3:00 EST ,
== END | disposition home or self-care (01) ==
PROVIDERS: PCP Nurse Practitioner Family; Referring Provider Nurse Practitioner Family; Visit Provider Nurse Practitioner Family
DX: J32.0 Chronic maxillary sinusitis (principal); R09.89 Other specified symptoms and signs involving the circulatory and respiratory systems; R05.3 Chronic cough; J45.998 Other asthma
CPT/HCPCS: 70220; 71046; 87070; 87205

== ENCOUNTER → 2022-10-29 | Outpatient (CLI) | payer MEDICARE, SELFPAY ==
--- NOTE | 2022-10-29 16:45 | MRI_ITS ---
STUDY: MRI THORACIC SPINE WITHOUT CONTRAST REASON FOR EXAM: Female, 72 years old. COMPRESSION FX TECHNIQUE: Standardized fat and water weighted pulse sequences were obtained in the sagittal and axial planes. Multiplanar multi echo noncontrast imaging obtained. Contrast: No contrast administered COMPARISON: None. FINDINGS: Normal kyphosis of the thoracic spine. There is no substantial scoliosis. There is heterogeneous marrow signal without evidence of marrow replacement processes marrow edema fracture or subluxation. T1-2, T2-3, T3-4, T4-5, T5-6, T6-7, T7-8, T8-9, T9-10, T10-11, T11-12: 1. Disc desiccation throughout the thoracic spine. There are mild disc bulges as PICA complexes particularly on the LEFT at C5-6, on the LEFT at T6-7, and on the RIGHT at T7-8. 2. No evidence of acute disc herniation or acutely acquired canal stenosis. 3. Multilevel perineural cysts are present including small perineural cyst on the LEFT at T1-T2 and T2-3, prominent right-sided perineural cyst at T3-4 bilateral perineural cysts at T8-9. Spinal CORD: Normal visualized thoracic cord. Normal conus medullaris that terminates at the L1-2 level. The soft tissue structures are unremarkable. MRI/Spine Thoracic (Routine) IMPRESSION: 1. Multilevel degenerative disc changes, disc bulge osteophyte complexes without evidence of acute disc herniation or acutely acquired canal stenosis. 2. No evidence of fracture or destructive bony process, no marrow replacement noted. No acute or chronic compression fractures identified. 3. Multilevel perineural cysts within the neural foramina as detailed. 4. Normal appearance of the visualized thoracic cord. No evidence cord compression edema or intramedullary signal abnormality. Electronically Signed: Krzysztof Martinez MD at 19:24 EST ,
--- NOTE | 2022-10-29 17:42 | MRI_ITS ---
STUDY: MRI LUMBAR SPINE WITHOUT CONTRAST REASON FOR EXAM: Female, 72 years old. Evaluate for compression FX. Pain across lower back with radiation to both lower extremities. Pain is worse on RIGHT. TECHNIQUE: Standardized fat and water weighted pulse sequences were obtained in the sagittal and axial planes. No contrast administered COMPARISON: None FINDINGS: Vertebral bodies and alignment. 1. Vertebral body height and alignment are maintained. No evidence of marrow edema or occult fracture. 2. Paraspinous soft tissue planes have normal appearance. Normal appearance of the muscular fascial planes of the erector spinae. 3. Normal appearance of the sacrum and sacroiliac joints. 4. Incidental note of peripelvic cysts in the LEFT kidney, extrarenal pelvis on the RIGHT. Intervertebral disks levels. T12-L1: Normal endplates. Normal disc height, hydration and morphology. Normal bilateral facet joints. Normal central canal and bilateral lateral recesses. Normal bilateral intervertebral neural foramina. L1-2: Disc desiccation, broad-based disc bulge without disc herniation canal or foraminal narrowing. L2-3: Disc desiccation, RIGHT posterior lateral disc bulge without luz elena herniation canal or foraminal narrowing. Mild degenerative endplate changes particularly along the anterior aspect of the endplates. Mild facet hypertrophic changes. L3-4: Disc desiccation, broad-based disc bulge, facet and ligamentum flavum hypertrophic changes present. No canal stenosis or luz elena disc herniation. Neural foramina are widely patent. L4-5: Minimal disc bulge without disc herniation or canal stenosis. Facet and ligament of flavum hypertrophic changes, no foraminal narrowing. L5-S1: Normal endplates. Normal disc height, hydration and morphology. Normal bilateral facet joints. Normal central canal and bilateral lateral recesses. Normal bilateral intervertebral neural foramina. Spinal cord: Normal appearance of the spinal cord and conus. Conus is located at L1. Cauda equina has normal appearance. No evidence of cord compression or edema. No intramedullary signal abnormality noted. MRI/Spine Lumbar (Routine) IMPRESSION: 1. Mild lumbar spondylosis, facet and ligament of flavum hypertrophic changes are present. No evidence however of acute disc herniation canal stenosis or nerve root of cord compression. 2. Normal appearance of the visualized cord and conus. Electronically Signed: Krzysztof Martinez MD at 18:31 EST ,
== END | disposition home or self-care (01) ==
LOC: MRI 16:11
PROVIDERS: PCP Nurse Practitioner Family; Visit Provider Orthopaedic Surgery
DX: M51.26 Other intervertebral disc displacement, lumbar region (principal); S22.080A Wedge compression fracture of T11-T12 vertebra, initial encounter for closed fracture; S32.040A Wedge compression fracture of fourth lumbar vertebra, initial encounter for closed fracture; S32.010A Wedge compression fracture of first lumbar vertebra, initial encounter for closed fracture; M06.9 Rheumatoid arthritis, unspecified; G96.191 Perineural cyst; M47.816 Spondylosis without myelopathy or radiculopathy, lumbar region; N28.1 Cyst of kidney, acquired; M51.34 Other intervertebral disc degeneration, thoracic region; M50.222 Other cervical disc displacement at C5-C6 level; M54.9 Dorsalgia, unspecified; M43.00 Spondylolysis, site unspecified; M48.061 Spinal stenosis, lumbar region without neurogenic claudication
CPT/HCPCS: 72146; 72148

== ENCOUNTER → 2022-11-04 | Outpatient (CLI) | payer MEDICARE, SELFPAY ==
--- NOTE | 2022-11-04 14:09 | CT_ITS ---
STUDY: CT MAXILLOFACIAL SINUSES REASON FOR EXAM: Female, 72 years old. CHRONIC RHINOSINUSITIS RADIATION DOSAGE (If Supplied By Facility): CTDIvol = ( 33.06 ) mGy, DLP = ( 784.26 ) mGycm TECHNIQUE: The patient was scanned in a multi detector CT scanner. High resolution axial imaging was performed without the administration of intravenous contrast material. Sagittal and coronal images were reconstructed. Individualized dose optimization techniques were used for this CT. COMPARISON: None. FINDINGS: FRONTAL SINUSES: Minimal degree of mucosal thickening of the right frontal sinus. ETHMOIDAL SINUSES: Minimal degree of mucosal thickening of the ethmoid sinuses. MAXILLARY SINUSES: Minimal mucosal thickening at the base of the right maxillary sinus. SPHENOIDAL SINUSES: Normal aeration, without mucosal inflammatory disease. There is patency of the bilateral maxillary infundibuli with normal uncinate processes, ethmoid bullae, and hiatus semilunaris. There is mesfin bullosa of the left middle turbinate. Normal bilateral inferior turbinates. There is a right sided nasal septal deviation with a right sided nasal septal spur. There is patency of the bilateral nasal airways. The visualized osseous structures are normal. The visualized bilateral orbital contents are normal. CT/Sinus/Facial Bone IMPRESSION: Minimal degree of mucosal thickening of the right frontal sinus as well as the ethmoid sinuses. Minimal degree of mucosal thickening at the base of the right maxillary sinus. Nasal septal deviation toward the right-sided midline. Electronically Signed: Robin Hahn MD at 15:23 EST ,
== END | disposition home or self-care (01) ==
PROVIDERS: PCP Nurse Practitioner Family; Visit Provider Otolaryngology
DX: J31.0 Chronic rhinitis (principal)
CPT/HCPCS: 70486

== ENCOUNTER → 2022-12-10 | Outpatient (CLI) | payer MEDICARE, SELFPAY ==
[2022-12-10 10:27] LABS: Hematocrit 41.5 % (37-47); Hemoglobin 13.4 g/dL (12.0-15.0); Mean Corp Hgb Conc 32.3 g/dL (32-36); Mean Corpuscular Hgb 28.9 pg (27.0-32.0); Mean Corpuscular Volume 89.4 fL (81-99); Mean Platelet Vol. 9.8 fl (6.2-12.0); Platelet Count 236 K/mm3 (150-450); RBC Distribution Width CV 12.4 % (11.6-14.6); RBC Distribution Width SD 40.7 fl (35.1-43.9); Red Blood Count 4.64 M/mm3 (4.2-5.4); White Blood Count 5.5 K/mm3 (4.4-11.0)
[2022-12-10 10:43] LABS: Microalbumin,Random Urine 8.7 mg/L (NO RANGE EST.); Microalbumin:Creatinine Ratio 10.2 mg/g CRE (<30 mg/g CRE)
[2022-12-10 10:55] LABS: ALB/GLOB Ratio 1.2 RATIO (0.9-2.4); AST(SGOT) 18 U/L (15-37); Alanine Aminotransfer ALT/SGPT 27 U/L (13-56); Albumin, Serum 3.8 g/dL (3.2-5.0); Alkaline Phosphatase 95 U/L (45-117); Anion Gap 5 (5-15); BUN 17 mg/dL (7-18); BUN/Creat Ratio 20.3 RATIO (10-20); Calcium,Total 9.1 mg/dL (8.5-10.1); Chloride 102 mmol/L (98-107); Creatinine, Serum 0.84 mg/dL (0.55-1.02); EST Glomerular Filtration Rate 71 mL/min (>60); Est Glom Filt Rate - Afr Amer 86 mL/min (>60); Globulin 3.3 g/dL (2.2-4.2); Glucose 109 mg/dL (74-106); Potassium 3.9 mmol/L (3.5-5.1); Protein, Total 7.1 g/dL (6.4-8.2); Sodium Level 140 mmol/L (136-145)
[2022-12-10 10:57] LABS: Vitamin D,25 Hydroxy 78.4 ng/mL
== END | disposition home or self-care (01) ==
LOC: MTLAB 07:13
PROVIDERS: PCP Nurse Practitioner Family; Referring Provider Nurse Practitioner Family; Visit Provider Nurse Practitioner Family
DX: I10 Essential (primary) hypertension (principal); E78.5 Hyperlipidemia, unspecified; E55.9 Vitamin D deficiency, unspecified; J45.998 Other asthma; K21.9 Gastro-esophageal reflux disease without esophagitis
CPT/HCPCS: 36415; 80053; 82043; 82306; 82570; 85027

== ENCOUNTER → 2023-01-03 | Outpatient (CLI) | payer MEDICARE, SELFPAY ==
[2023-01-03 12:41] LABS: Absolute Lymphocyte Count 1.63 X10^3/uL (0.83-4.51); Absolute Neutrophil Count 3.3 X10^3/uL (2.0-7.7); Basophil# 0.03 X10^3/uL; Basophil% 0.5 % (0-1); Eosinophil# 0.16 X10^3/uL; Eosinophils% 2.8 % (0-5); Hematocrit 42.3 % (37-47); Hemoglobin 13.9 g/dL (12.0-15.0); Lymphocyte # 1.63 X10^3/ul (0.83-4.51); Lymphocyte % 28.8 % (19-41); Mean Corp Hgb Conc 32.9 g/dL (32-36); Mean Corpuscular Hgb 29.6 pg (27.0-32.0); Monocyte# 0.53 X10^3/uL; Monocyte% 9.4 % (0-10); NRBC Flagged by Analyzer 0 % (0-5); Neutrophil # 3.29 X10^3/uL (2.7-7.7); Neutrophil % 58.3 % (47-70); Platelet Count 246 K/mm3 (150-450); RBC Distribution Width CV 12.4 % (11.6-14.6); White Blood Count 5.7 K/mm3 (4.4-11.0)
[2023-01-03 13:12] LABS: AST(SGOT) 20 U/L (15-37); Alanine Aminotransfer ALT/SGPT 29 U/L (13-56); Albumin, Serum 3.8 g/dL (3.2-5.0); Alkaline Phosphatase 105 U/L (45-117); Anion Gap 2 (5-15); BUN 14 mg/dL (7-18); BUN/Creat Ratio 16.6 RATIO (10-20); Calcium,Total 9.4 mg/dL (8.5-10.1); Chloride 105 mmol/L (98-107); Creatinine, Serum 0.84 mg/dL (0.55-1.02); EST Glomerular Filtration Rate 70 mL/min (>60); Est Glom Filt Rate - Afr Amer 85 mL/min (>60); Globulin 3.9 g/dL (2.2-4.2); Glucose 99 mg/dL (74-106); Protein, Total 7.7 g/dL (6.4-8.2); Sodium Level 139 mmol/L (136-145)
== END | disposition home or self-care (01) ==
PROVIDERS: PCP Nurse Practitioner Family; Visit Provider Internal Medicine Rheumatology
DX: M06.4 Inflammatory polyarthropathy (principal); Z79.899 Other long term (current) drug therapy; I10 Essential (primary) hypertension
CPT/HCPCS: 36415; 80053; 85025

== ENCOUNTER → 2023-02-28 | Outpatient (CLI) | payer MEDICARE, SELFPAY ==
[2023-02-28 16:01] LABS: Absolute Lymphocyte Count 1.67 X10^3/uL (0.83-4.51); Absolute Neutrophil Count 2.4 X10^3/uL (2.0-7.7); Basophil# 0.03 X10^3/uL; Basophil% 0.6 % (0-1); Eosinophil# 0.09 X10^3/uL; Eosinophils% 1.9 % (0-5); Hematocrit 39.5 % (37-47); Hemoglobin 12.8 g/dL (12.0-15.0); Lymphocyte # 1.67 X10^3/ul (0.83-4.51); Lymphocyte % 35.2 % (19-41); Mean Corp Hgb Conc 32.4 g/dL (32-36); Mean Corpuscular Hgb 29.1 pg (27.0-32.0); Mean Corpuscular Volume 89.8 fL (81-99); Monocyte# 0.54 X10^3/uL; Monocyte% 11.4 % (0-10); NRBC Flagged by Analyzer 0 % (0-5); Neutrophil # 2.41 X10^3/uL (2.7-7.7); Neutrophil % 50.7 % (47-70); Platelet Count 217 K/mm3 (150-450); RBC Distribution Width CV 12.6 % (11.6-14.6); RBC Distribution Width SD 41.4 fl (35.1-43.9); White Blood Count 4.8 K/mm3 (4.4-11.0)
[2023-02-28 16:09] LABS: ALB/GLOB Ratio 1.1 RATIO (0.9-2.4); AST(SGOT) 23 U/L (15-37); Alanine Aminotransfer ALT/SGPT 28 U/L (13-56); Albumin, Serum 3.8 g/dL (3.2-5.0); Alkaline Phosphatase 101 U/L (45-117); Anion Gap 5 (5-15); BUN 13 mg/dL (7-18); BUN/Creat Ratio 16.2 RATIO (10-20); Calcium,Total 9.2 mg/dL (8.5-10.1); Chloride 104 mmol/L (98-107); EST Glomerular Filtration Rate 74 mL/min (>60); Est Glom Filt Rate - Afr Amer 90 mL/min (>60); Globulin 3.5 g/dL (2.2-4.2); Glucose 117 mg/dL (74-106); Potassium 3.6 mmol/L (3.5-5.1); Protein, Total 7.3 g/dL (6.4-8.2); Sodium Level 140 mmol/L (136-145)
== END | disposition home or self-care (01) ==
LOC: MTLAB 13:22
PROVIDERS: PCP Nurse Practitioner Family; Referring Provider Internal Medicine Rheumatology; Visit Provider Internal Medicine Rheumatology
DX: M06.4 Inflammatory polyarthropathy (principal); Z79.899 Other long term (current) drug therapy
CPT/HCPCS: 36415; 80053; 85025

== ENCOUNTER → 2023-05-05 | Outpatient (CLI) | payer MEDICARE, SELFPAY ==
[2023-05-05 16:48] LABS: Absolute Lymphocyte Count 2.01 X10^3/uL (0.83-4.51); Absolute Neutrophil Count 4.1 X10^3/uL (2.0-7.7); Basophil# 0.03 X10^3/uL; Basophil% 0.4 % (0-1); Eosinophil# 0.11 X10^3/uL; Eosinophils% 1.6 % (0-5); Hematocrit 40.1 % (37-47); Lymphocyte # 2.01 X10^3/ul (0.83-4.51); Mean Corp Hgb Conc 32.4 g/dL (32-36); Mean Corpuscular Hgb 29.7 pg (27.0-32.0); Mean Corpuscular Volume 91.6 fL (81-99); Mean Platelet Vol. 9.5 fl (6.2-12.0); Monocyte# 0.65 X10^3/uL; Monocyte% 9.4 % (0-10); NRBC Flagged by Analyzer 0 % (0-5); Neutrophil % 59.2 % (47-70); Platelet Count 223 K/mm3 (150-450); RBC Distribution Width CV 12.5 % (11.6-14.6); RBC Distribution Width SD 41.7 fl (35.1-43.9); Red Blood Count 4.38 M/mm3 (4.2-5.4); White Blood Count 6.9 K/mm3 (4.4-11.0)
[2023-05-05 17:24] LABS: Anion Gap 4 (5-15); BUN 15 mg/dL (7-18); Calcium,Total 9.3 mg/dL (8.5-10.1); Chloride 104 mmol/L (98-107); Creatinine, Serum 0.88 mg/dL (0.55-1.02); EST Glomerular Filtration Rate 67 mL/min (>60); Est Glom Filt Rate - Afr Amer 81 mL/min (>60); Glucose 126 mg/dL (74-106); Potassium 3.7 mmol/L (3.5-5.1); Sodium Level 140 mmol/L (136-145); Thyroid Stim Hormone (TSH) 2.42 uIU/mL (0.358-3.74)
== END | disposition home or self-care (01) ==
LOC: LAB 16:09
PROVIDERS: PCP Nurse Practitioner Family; Referring Provider Internal Medicine Cardiovascular Disease; Visit Provider Internal Medicine Cardiovascular Disease
DX: I10 Essential (primary) hypertension (principal)
CPT/HCPCS: 80048; 84443; 85025

== ENCOUNTER → 2023-05-30 | Outpatient (CLI) | payer MEDICARE, SELFPAY ==
[2023-05-30 10:12] LABS: Absolute Lymphocyte Count 1.57 X10^3/uL (0.83-4.51); Absolute Neutrophil Count 3.5 X10^3/uL (2.0-7.7); Basophil# 0.03 X10^3/uL; Basophil% 0.5 % (0-1); Eosinophil# 0.12 X10^3/uL; Hematocrit 40.2 % (37-47); Hemoglobin 12.8 g/dL (12.0-15.0); Lymphocyte # 1.57 X10^3/ul (0.83-4.51); Lymphocyte % 26.5 % (19-41); Mean Corp Hgb Conc 31.8 g/dL (32-36); Mean Corpuscular Hgb 29.5 pg (27.0-32.0); Mean Corpuscular Volume 92.6 fL (81-99); Mean Platelet Vol. 9.6 fl (6.2-12.0); Monocyte# 0.69 X10^3/uL; Monocyte% 11.6 % (0-10); NRBC Flagged by Analyzer 0 % (0-5); Neutrophil # 3.49 X10^3/uL (2.7-7.7); Neutrophil % 58.9 % (47-70); Platelet Count 230 K/mm3 (150-450); RBC Distribution Width CV 12.3 % (11.6-14.6); RBC Distribution Width SD 41.9 fl (35.1-43.9); Red Blood Count 4.34 M/mm3 (4.2-5.4); White Blood Count 5.9 K/mm3 (4.4-11.0)
[2023-05-30 11:20] LABS: AST(SGOT) 21 U/L (15-37); Alanine Aminotransfer ALT/SGPT 33 U/L (13-56); Albumin, Serum 3.8 g/dL (3.2-5.0); Alkaline Phosphatase 103 U/L (45-117); Anion Gap 3 (5-15); BUN 20 mg/dL (7-18); BUN/Creat Ratio 23.5 RATIO (10-20); Calcium,Total 9.3 mg/dL (8.5-10.1); Chloride 105 mmol/L (98-107); Creatinine, Serum 0.85 mg/dL (0.55-1.02); EST Glomerular Filtration Rate 70 mL/min (>60); Est Glom Filt Rate - Afr Amer 84 mL/min (>60); Globulin 3.7 g/dL (2.2-4.2); Glucose 108 mg/dL (74-106); Potassium 4.3 mmol/L (3.5-5.1); Protein, Total 7.5 g/dL (6.4-8.2); Sodium Level 137 mmol/L (136-145)
== END | disposition home or self-care (01) ==
LOC: MTLAB 08:10
PROVIDERS: PCP Nurse Practitioner Family; Referring Provider Internal Medicine Rheumatology; Visit Provider Internal Medicine Rheumatology
DX: M06.4 Inflammatory polyarthropathy (principal); Z79.899 Other long term (current) drug therapy; I10 Essential (primary) hypertension; E78.5 Hyperlipidemia, unspecified
CPT/HCPCS: 36415; 80053; 85025

== ENCOUNTER → 2023-06-07 | Outpatient (CLI) | payer MEDICARE, SELFPAY ==
[2023-06-07 10:29] LABS: Hematocrit 39.9 % (37-47); Hemoglobin 12.9 g/dL (12.0-15.0); Mean Corp Hgb Conc 32.3 g/dL (32-36); Mean Corpuscular Hgb 29.5 pg (27.0-32.0); Mean Corpuscular Volume 91.1 fL (81-99); Mean Platelet Vol. 9.5 fl (6.2-12.0); Platelet Count 205 K/mm3 (150-450); RBC Distribution Width CV 12.2 % (11.6-14.6); RBC Distribution Width SD 40.6 fl (35.1-43.9); Red Blood Count 4.38 M/mm3 (4.2-5.4); White Blood Count 5.2 K/mm3 (4.4-11.0)
[2023-06-07 10:43] LABS: Vitamin D,25 Hydroxy 74.6 ng/mL
[2023-06-07 11:00] LABS: ALB/GLOB Ratio 1.1 RATIO (0.9-2.4); AST(SGOT) 18 U/L (15-37); Alanine Aminotransfer ALT/SGPT 28 U/L (13-56); Albumin, Serum 3.9 g/dL (3.2-5.0); Alkaline Phosphatase 97 U/L (45-117); Anion Gap 5 (5-15); BUN 12 mg/dL (7-18); BUN/Creat Ratio 14.9 RATIO (10-20); Chloride 106 mmol/L (98-107); EST Glomerular Filtration Rate 74 mL/min (>60); Est Glom Filt Rate - Afr Amer 90 mL/min (>60); Globulin 3.6 g/dL (2.2-4.2); Glucose 113 mg/dL (74-106); Potassium 3.9 mmol/L (3.5-5.1); Protein, Total 7.5 g/dL (6.4-8.2); Sodium Level 140 mmol/L (136-145)
== END | disposition home or self-care (01) ==
LOC: MTLAB 07:40
PROVIDERS: PCP Nurse Practitioner Family; Referring Provider Nurse Practitioner Family; Visit Provider Nurse Practitioner Family
DX: M06.9 Rheumatoid arthritis, unspecified (principal); I10 Essential (primary) hypertension; R73.01 Impaired fasting glucose; E78.5 Hyperlipidemia, unspecified; E55.9 Vitamin D deficiency, unspecified
CPT/HCPCS: 36415; 80053; 82043; 82306; 85027

== ENCOUNTER → 2023-08-18 | Outpatient (CLI) | payer MEDICARE, SELFPAY ==
[2023-08-18 17:32] LABS: Absolute Lymphocyte Count 2.06 X10^3/uL (0.83-4.51); Absolute Neutrophil Count 4.1 X10^3/uL (2.0-7.7); Basophil# 0.03 X10^3/uL; Basophil% 0.4 % (0-1); Eosinophil# 0.15 X10^3/uL; Eosinophils% 2.1 % (0-5); Hematocrit 40.8 % (37-47); Hemoglobin 13.5 g/dL (12.0-15.0); Lymphocyte # 2.06 X10^3/ul (0.83-4.51); Lymphocyte % 29.4 % (19-41); Mean Corp Hgb Conc 33.1 g/dL (32-36); Mean Corpuscular Hgb 30.1 pg (27.0-32.0); Mean Corpuscular Volume 90.9 fL (81-99); Mean Platelet Vol. 9.3 fl (6.2-12.0); Monocyte# 0.67 X10^3/uL; Monocyte% 9.6 % (0-10); NRBC Flagged by Analyzer 0 % (0-5); Neutrophil # 4.08 X10^3/uL (2.7-7.7); Neutrophil % 58.4 % (47-70); Platelet Count 236 K/mm3 (150-450); RBC Distribution Width CV 12.9 % (11.6-14.6); RBC Distribution Width SD 42.5 fl (35.1-43.9); Red Blood Count 4.49 M/mm3 (4.2-5.4)
[2023-08-18 18:10] LABS: AST(SGOT) 23 U/L (15-37); Alanine Aminotransfer ALT/SGPT 35 U/L (13-56); Alkaline Phosphatase 92 U/L (45-117); Anion Gap 5 (5-15); BUN 16 mg/dL (7-18); BUN/Creat Ratio 18.9 RATIO (10-20); Calcium,Total 9.4 mg/dL (8.5-10.1); Chloride 102 mmol/L (98-107); Creatinine, Serum 0.85 mg/dL (0.55-1.02); EST Glomerular Filtration Rate 70 mL/min (>60); Est Glom Filt Rate - Afr Amer 85 mL/min (>60); Globulin 3.9 g/dL (2.2-4.2); Glucose 109 mg/dL (74-106); Potassium 3.9 mmol/L (3.5-5.1); Protein, Total 7.9 g/dL (6.4-8.2); Sodium Level 138 mmol/L (136-145)
== END | disposition home or self-care (01) ==
LOC: MTLAB 14:13
PROVIDERS: PCP Nurse Practitioner Family; Referring Provider Internal Medicine Rheumatology; Visit Provider Internal Medicine Rheumatology
DX: M06.4 Inflammatory polyarthropathy (principal); Z79.899 Other long term (current) drug therapy; M79.7 Fibromyalgia
CPT/HCPCS: 36415; 80053; 85025

== ENCOUNTER → 2023-11-28 | Outpatient (CLI) | payer MEDICARE, SELFPAY ==
--- OUTSIDE RECORDS SUMMARY | 2023-11-28 10:43 | XMS RPT_ITS | CCD ---
Author Name Unknown Address [address] [place] [address] Organization [facility] Care Team Providers Care Physically Impaired Teacher Name Role Phone KRZYSZTOF MOORE Unavailable Unavailable KRZYSZTOF MOORE Unavailable Unavailable KRZYSZTOF MOORE Unavailable Unavailable KRZYSZTOF MOORE Unavailable Unavailable KRZYSZTOF MOORE Unavailable Unavailable KRZYSZTOF MOORE Unavailable Unavailable MARVABRAN PRYORI Unavailable Unavailable KRZYSZTOF MOORE Unavailable Unavailable Krzysztof Moore CNP Primary Care Provider Krzysztof Moore CNP Primary Care Provider Krzysztof Moore CNP Primary Care Provider KEDAR FIBER TECHNICIAN - KRZYSZTOF CAMEJO Primary Care Phys ician KRZYSZTOF MCDONALD Attending Unavailable KRZYSZTOF MCDONALD Referring Unavailable KRZYSZTOF MOORE Primary Care Unavailable KRZYSZTOF MOORE Referring Unavailable KRZYSZTOF MOORE Primary Care Unavailable KRZYSZTOF MCDONALD Attending Unavailable KRZYSZTOF MOORE Primary Care Unavailable KRZYSZTOF MCDONALD Attending Unavailable KRZYSZTOF MCDONALD Referring Unavailable KRZYSZTOF MOROE Primary Care Unavailable Allergies Allergy Classification Reported Allergen(s) Allergy Type Date of Onset Reaction(s) Facility (8 sources) Azithromycin; Translations: [azithromycin] Drug Allergy 6 GI Upset [facility] Work Phone: (8 sources) Latex; Translations: [LATEX] Drug Allergy 6 Other: See Comments, Ulcer of mouth (disorder) [facility] (6 sources) Contrast Dye [Other] Propensity to adverse reactions 0 Hives [facility] (1 source) Contrast media; Translations: [iodinated radiocontrast agents] Drug allergy Itching (finding) [facility] (1 source) OTHER; Translations: [OTHER] Propensity to adverse reactions (disorder) 0 [facility] Repository Medications Current Medications Medication Drug Class(es) Dates Sig (Normalized) Sig (Original) atorvastatin 10 mg oral tablet (7 sources) HMG-CoA Reductase Inhibitor Start: 08-30-2016 End: 12-13-2023 atorvastatin 10 mg oral tablet Dose : 10 mg = 1 tab(s), Oral, qDay, # 90 tab(s), 1 Refill(s), Pharmacy: [id number], Hyperlipidemia LDL goal Start Date: 06/16/23 Stop Date: 12/13/23 Status: Ordered calcium carbonate 1500 mg oral tablet (1 source) Start: 06-04-2019 calcium (as carbonate) 600 mg oral tablet Dose : 600 mg = 1 tab(s), Oral, BIDM, 0 Refill(s) Start Date: 06/04/19 Status: Ordered carvedilol 12.5 mg oral tablet (1 source) alpha-Adrenergic Opal, beta-Adrenergic Opal Start: 06-16-2023 carvedilol 12.5 mg oral tablet Dose : 12.5 mg = 1 tab(s), Oral, BID, # 60 tab(s), 0 Refill(s) Start Date: 06/16/23 Status: Ordered ergocalciferol 1.25 mg oral capsule (7 sources) Provitamin D2 Compound Start: 06-16-2023 End: 12-13-2023 ergocalciferol 50,000 intl units (1.25 mg) oral capsule Dose : 50,000 International_Unit = 1 cap(s), Oral, qWeek, # 13 cap(s), 1 Refill(s), Pharmacy: [facility], Vitamin D deficiency, 166.3, cm, 12/16/22 9:42:00 EST, Height, kg, 06/16/23 9:58:00 EDT, Dosing Weight Start Date: 06/16/23 Stop Date: 12/13/23 Status: Ordered Completed/Discontinued Medications Medication Drug Class(es) Dates Sig (Normalized) Sig (Original) Biotin (6 sources) BIOTIN ORAL Take by mouth. 0 Active Problems Active Problems Problem Classification Problem Date Documented Date Episodic/Chronic Asthma (7 sources) Asthma; Translations: [Unspecified asthma, uncomplicated] Onset: 09-01-2010 10-05-2021 Chronic Diabetes mellitus without complication (1 source) Impaired fasting glycemia 12-16-2022 Episodic Disorders of lipid metabolism (3 sources) Hyperlipidemia, unspecified; Translations: [Hyperlipidemia] Onset: 11-28-2017 06-04-2019 Chronic Esophageal disorders (5 sources) Gastroesophageal reflux disease without esophagitis; Translations: [Gastro-esophageal reflux disease without esophagitis] Onset: 09-21-2022 Chronic Essential hypertension (3 sources) Essential (primary) hypertension; Translations: [Hypertensive disorder] Onset: 11-28-2017 06-04-2019 Chronic Genitourinary symptoms and ill-defined conditions (1 source) H/O: kidney disease 06-04-2019 Episodic Menopausal disorders (12 sources) Atrophic vaginitis; Translations: [Postmenopausal atrophic vaginitis] Onset: 08-09-2011 08-09-2011 Chronic Nutritional deficiencies (3 sources) Vitamin D deficiency, unspecified; Translations: [Vitamin D deficiency] Onset: 11-28-2017 06-04-2019 Chronic Osteoarthritis (1 source) Osteoarthritis of multiple joints 06-04-2019 Chronic Other acquired deformities (1 source) 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 Past or Other Problems Problem Classification Problem Date Documented Da te Episodic/Chronic Crushing injury or internal injury (6 sources) Laceration of kidney; Translations: [Laceration of unspecified kidney, unspecified degree, initial encounter] Onset: 09-01-2010 10-05-2021 Episodic Other and unspecified benign neoplasm (6 sources) Polyp of colon; Translations: [Polyp of colon] Onset: 09-01-2010 10-05-2021 Episodic Other and unspecified benign neoplasm (6 sources) History of polyp of colon; Translations: [Personal history of colonic polyps] Onset: 10-21-2010 10-21-2010 Episodic Spondylosis; intervertebral disc disorders; other back problems (2 sources) Low back pain; Translations: [Low back pain] Onset: 05-23-2018 Episodic Results Test Name Value Interpretation Reference Range Facil ity Vital Signs Date Time Vital Sign Value Performing Clinician Mani mitchell 09-21-2022 15:17-0500 Body temperature 97.9 [degF] Krzysztof Mcdonald MD Work Phone: [facility] 09-21-2022 15:17-0500 Diastolic blood pressure 80 mm[Hg] Krzysztof Mcdonald MD Work Phone: [facility] 09-21-2022 15:17-0500 Heart rate 102 /min Krzysztof Mcdonald MD Work Phone: [facility] 09-21-2022 15:17-0500 SaO2% (BldA) [Mass fraction] 95 % Krzysztof Mcdonald MD Work Phone: [facility] 09-21-2022 15:17-0500 Systolic blood pressure 130 mm[Hg] Krzysztof Mcdonald MD Work Phone: [facility] 09-14-2022 13:35-0500 Diastolic blood pressure 75 mm[Hg] Krzysztof Mcdonald MD Work Phone: [facility] 09-14-2022 13:35-0500 Heart rate 84 /min Krzysztof Mcdonald MD Work Phone: [facility] 09-14-2022 13:35-0500 Respiratory rate 16 /min Krzysztof Mcdonald MD Work Phone: [facility] 09-14-2022 13:35-0500 SaO2% (BldA) [Mass fraction] 94 % Krzysztof Mcdonald MD Work Phone: [facility] 09-14-2022 13:35-0500 Systolic blood pressure 140 mm[Hg] Krzysztof Mcdonald MD Work Phone: [facility] 09-14-2022 12:17-0500 Body temperature 97.39 [degF] Krzysztof Mcdonald MD Work Phone: [facility] 09-14-2022 12:17-0500 Body weight 77.5 kg Krzysztof Mcdonald MD Work Phone: [facility] 07-13-2022 14:33-0400 Body height 167.6 cm Krzysztof Mcdonald MD Work Phone: [facility] 07-13-2022 14:33-0400 Body temperature 98.1 [degF] Krzysztof Mcdonald MD Work Phone: [facility] 07-13-2022 14:33-0400 Body weight 77.47 kg Krzysztof Mcdonald MD Work Phone: [facility] 07-13-2022 14:33-0400 Diastolic blood pressure 90 mm[Hg] Krzysztof Mcdonald MD Work Phone: [facility] 07-13-2022 14:33-0400 Heart rate 104 /min Krzysztof Mcdonald MD Work Phone: [facility] 07-13-2022 14:33-0400 SaO2% (BldA) [Mass fraction] 96 % Krzysztof Mcdonald MD Work Phone: [facility] 07-13-2022 14:33-0400 Systolic blood pressure 150 mm[Hg] Krzysztof Mcdonald MD Work Phone: [facility] Encounters Encounter Date Encounter Type Care Provider Facility Start: 08-18-2023 End: 08-18-2023 ambulatory KRZYSZTOF MCDONALD Facility:[facility] Start: 06-24-2023 End: 06-24-2023 Patient encounter procedure KRZYSZTOF MOORE FIBER TECHNICIAN - HEATING AND BLENDING SUPERVISOR [facility] Start: 03-08-2023 End: 03-08-2023 ambulatory KRZYSZTOF MOORE Facility:[facility] Start: 03-08-2023 End: 03-08-2023 Subsequent hospital visit by physician Screen Mammo [facility] Mammogram Start: 09-21-2022 End: 09-21-2022 ambulatory KRZYSZTOF MCDONALD Facility:[facility] Start: 09-21-2022 End: 09-21-2022 Patient encounter procedure Krzysztof Mcdonald MD Work Phone: General Surgery Procedures Date Procedure Procedure Detail Performing Clinician Start: 03-08-2023 Screening digital breast tomosynthesis bi [facility] Provider Start: 09-14-2022 Level iv surg pathology gross&microscopic exam Krzysztof Mcdonald MD Work Phone: Start: 09-14-2022 Esophagogastroduodenoscopy transoral diagnostic Krzysztof Mcdonald MD Work Phone: Start: 02-16-2022 Mammography Screen Wstr Start: 03-14-2018 Esophagogastroduodenoscopy KRZYSZTOF FRIEDMAN FIBER TECHNICIAN - HEATING AND BLENDING SUPERVISOR Start: 12-21-2017 Bone density scan KRZYSZTOF MOORE FIBER TECHNICIAN [facility] Start: 03-19-2016 Colonoscopy Screen Wstr Start: 07-04-2009 Lipid 1996 panel - Serum or Plasma Scree n Ws Start: 08-04-2006 Cardiovascular stress testing KRZYSZTOF YANEZ FIBER TECHNICIAN [facility] Start: 08-04-2006 Exercise stress test - endocrine KRZYSZTOF MOORE FIBER TECHNICIAN [facility] Plan of Treatment Date Care Activity Detail Author Start: 02-09-2032 Urine microalbumin profile DTaP,Tdap,Td Vaccine (3 - Td or Tdap) [facility] Start: 03-19-2026 Colonoscopy COLONOSCOPY [facility] Start: 03-19-2026 COLORECTAL CANCER SCREENING COLORECTAL CANCER SCREENING [facility] Start: 03-08-2024 Mammography Mammogram Screening [facility] Start: 06-10-2023 Covid-19 Vaccine ( season) Covid-19 Vaccine ( season) [facility] Start: 06-10-2023 Influenza vaccination [facility] Start: 02-16-2023 Mammography MAMMOGRAM [facility] Start: 10-10-2022 Advance Directive Discussion Advance Directive Discussion [facility] Start: 10-10-2022 Depression Assessment Depression Assessment [facility] Start: 06-10-2022 Influenza vaccination INFLUENZA (#1) [facility] Start: 01-22-2022 Mammography MAMMOGRAM [facility] Start: 10-10-2021 ADVANCE DIRECTIVE DISCUSSION ADVANCE DIRECTIVE DISCUSSION [facility] Start: 10-10-2021 DEPRESSION ASSESSMENT DEPRESSION ASSESSMENT [facility] Start: 10-01-2021 COVID-19 VACCINE (4 - Booster for Moderna series) COVID-19 VACCINE (4 - Booster for Moderna series) [facility] Start: 08-27-2021 COVID-19 VACCINE (4 - Booster for Moderna series) COVID-19 VACCINE (4 - Booster for Moderna series) [facility] Start: 2015 PNEUMOVAX AGE 65 AND OVER WITH 5YR LOOKBACK (#1) PNEUMOVAX AGE 65 AND OVER WITH 5YR LOOKBACK (#1) [facility] Start: 03-22-2015 DIABETES SCREEN DIABETES SCREEN [facility] Start: 03-22-2015 Diabetes Screening Diabetes Screening [facility] Start: 07-04-2014 Lipid 1996 panel - Serum or Plasma Lipid Screening [facility] Start: 07-04-2014 LIPID SCREEN LIPID SCREEN [facility] Start: 2010 RSV Vaccine (1 - 1-dose 60+ series) RSV Vaccine (1 - 1-dose 60+ series) [facility] Start: 2000 SHINGRIX VACCINE (1 of 2) SHINGRIX VACCINE (1 of 2) [facility] Start: 1995 COLOGUARD (FIT-DNA) COLOGUARD (FIT-DNA) [facility] Start: [address] COLONOGRAPHY [facility] Start: 1995 FECAL OCCULT BLOOD FECAL OCCULT BLOOD [facility] Start: 1995 SIGMOIDOSCOPY SIGMOIDOSCOPY [facility] Start: 1969 SHINGRIX VACCINE (1 of 2) SHINGRIX VACCINE (1 of 2) [facility] Start: 1969 Urine microalbumin profile DTAP,TDAP,TD (1 - Tdap) [facility] Start: 1968 ANNUAL PCP TEAM CHRONIC DISEASE VISIT ANNUAL PCP TEAM CHRONIC DISEASE VISIT [facility] Start: 1968 HEPATITIS C SCREENING HEPATITIS C SCREENING [facility] Start: 1968 SPIROMETRY SPIROMETRY [facility] Start: 1962 Adult depression screening assessment DEPRESSION SCREENING [facility] Start: 1956 PNEUMOCOCCAL: 65+ (1 - PCV) PNEUMOCOCCAL: 65+ (1 - PCV) [facility] End: 07-13-2023 EGD DIAGNOSTIC EGD DIAGNOSTIC Endoscopy Routine Gastroesophageal reflux disease without esophagitis 1 Occurrences starting 07/13/2022 until 07/13/2023 [facility] Work Phone: Immunizations Immunization Date Immunization Notes Care Provider Fa cililj 08-14-2022 influenza virus vaccine, unspecified formulation KRZYSZTOF MOORE FIBER TECHNICIAN - HEATING AND BLENDING SUPERVISOR [facility] 05-12-2022 zoster vaccine recombinant KRZYSZTOF MOORE FIBER TECHNICIAN - HEATING AND BLENDING SUPERVISOR [facility] 02-08-2022 tetanus toxoid, redu deborah diphtheria toxoid, and acellular pertussis vaccine, adsorbed KRZYSZTOF MOORE FIBER TECHNICIAN - HEATING AND BLENDING SUPERVISOR [facility] 02-08-2022 zoster vaccine recombinant KRZYSZTOF MOORE FIBER TECHNICIAN - HEATING AND BLENDING SUPERVISOR [facility] 07-24-2021 influenza virus vaccine, unspecified formulation KRZYSZTOF MOORE FIBER TECHNICIAN - HEATING AND BLENDING SUPERVISOR [facility] 07-02-2021 SARS-CoV-2 (COVID-19 ) mRNA-1273 vaccine KRZYSZTOF MOORE FIBER TECHNICIAN - HEATING AND BLENDING SUPERVISOR [facility] 02-04-2021 SARS-CoV-2 (COVID-19 ) mRNA-1273 vaccine KRZYSZTOF MOORE FIBER TECHNICIAN - HEATING AND BLENDING SUPERVISOR [facility] Payers Date Payer Category Payer Unknown ANTHEM BLUE CR[employer] S AND BLUE SHIELD ANTHEM MEDIBL[employer] O [id number] 2018-Present [phone] [id number] [facility] [id number] 2018 Unknown ANTHEM BLUE CR[employer] S AND BLUE SHIELD ANTHEM MEDIBLUE O [id number] 2018-Present [phone] [address] [place] [address] O [id number] 2017 Unknown [id number] 1950 Unknown [id number] 1950 Unknown [id number] 1950 Unknown [id number] 1950 Unknown [id number] Social History Date Type Detail Facility Start: 09-14-2022 Tobacco smoking stat us LAIS Ex-smoker [facility] Start: 02-10-2021 End: 09-14-2022 Alcohol intake Current non-drinker of alcohol (finding) [facility] Start: 1950 Sex Assigned At Not on file C [facility] Start: 02-06-2022 End: 07-13-2022 Exposure to SARS-CoV-2 (event) Not sure [facility] History of tobacco use Current smoker [facility] Start: 09-14-2022 Tobacco use and exposure Smoke less tobacco non-user [facility] Start: 09-14-2022 Tobacco Comment quit as a teen [facility] Start: 06-04-2019 Tobacco smoking status Never s moked tobacco (finding) [facility] Clinical Notes 02-16-2022 to 08-19-2023 Marcy Bowles, RT(R) - 03/08/2023 3:00 PM Carolina Mcdonald MD - 09/21/2022 3:30 PM Flora Valdovinos RN - 09/14/2022 1:15 PM Krzysztof Meraz MD - 09/14/2022 12:00 PM ESTLaboratory Note Date & Type Note Facility 08-19-2023 Note HNO ID: [id number] Author: Krzysztof Mcdonald MD Service: ? Author Type: Physician Type: Progress Notes Filed: 08/19/2023 2:44 PM Note Text: FOLLOW UP VISIT - ENDOSCOPY NAME: Staci W [facility] NO.: [id number] DATE OF SERVICE: August 18, 2023 : 1950 REFERRING PHYSICIAN: MARY KAY Schrader, BASHIR Staci is a patient I am following for gastroesophageal reflux. The patient is a 71 year old female referred for endoscopy. Staci notes worsening epigastric complaints and reflux symptoms. Patient has a history of gastroesophageal reflux and heartburn issues. I performed upper endoscopy on March 14, 2018 which demonstrated gastritis and a small hiatal hernia and distal esophagitis. The patient had been doing well on PPIs for some time. For the past few months she has noted her symptoms have worsened. She notes pain in the epigastrium and pain in her chest which is somewhat fleeting. Patient is currently seeing cardiology. She had an echocardiogram which is unremarkable and has a stress test scheduled for early next week. Interestingly, her symptoms had somewhat improved when she stopped taking proton pump inhibitors. The patient is being seen by me at the request of MARY KAY Schrader CNP for my opinion and advice regarding worsening in reflux symptoms/epigastric pain felt to be noncardiac. I performed upper endoscopy on September 14, 2022. The patient was found to have: Impression: - Normal examined jejunum. Biopsied. - Normal examined duodenum. - Gastritis. Biopsied. - Multiple gastric polyps. Biopsied. - Small hiatal hernia. - Normal lower third of esophagus. Biopsied. - Normal middle third of esophagus. Biopsied. Pathology demonstrated: A. Jejunum, biopsy: -Small intestinal mucosa with no diagnostic alteration -No evidence of celiac disease B. Antrum, biopsy: -Antral mucosa with no diagnostic alteration -No morphologic evidence of Helicobacter pylori C. Fundus, biopsy: -Fundic gland polyp D. GE junction, biopsy: -Squamo-gastric junctional mucosa with reactive epithelial changes -Negative for intestinal metaplasia E. Mid esophagus, biopsy: -Squamous mucosa with no diagnostic alteration -No prominence of intraepithelial eosinophils The patient initially noted no complaints since the procedure. Upon further clarification of her stopping the proton pump inhibitors, she had 1 episode of relatively severe pain which has not happened since and she is uncertain what was the cause of that. She noted that she gets bronchitis and normally does not have issues with that but on 1 of these recent events when she had bronchitis she was coughing up or vomiting up mucus for 2 weeks after this event this did not seem to be affected by the proton pump inhibitors but she has not had that problem before or since. The patient notes which she describes some upper abdominal soreness. She also questions whether she has an umbilical hernia. She also notes fibromyalgia which may be a confounding factor with her symptoms. VITALS: Blood pressure 142/86, pulse 92, temperature 36.3 ?C (97.4 ?F), weight 80.7 kg (178 lb), last menstrual period 04/29/2006, SpO2 96 %. On examination, the abdomen is benign. She has point tenderness at the left lower costal margin consistent with costochondritis Assessment IMPRESSION: Mild reflux esophagitis mild gastritis PLAN: If the patient notes any problems or changes in bowel function, the patient should contact me immediately. Otherwise I recommend follow up endoscopy as needed. I recommend she continue proton pump inhibitors. Recommended ice and NSAIDs if she was comfortable with those for her costochondritis. She tells me she was just happy to have a diagnosis and likely will do no additional treatments. Diagnoses: (K21.9) Gastroesophageal reflux disease without esophagitis (primary encounter diagnosis) (M94.0) Costochondritis Return to Clinic: The patient is instructed to follow-up with me as needed. Krzysztof Mcdonald MD [facility] 06-24-2023 Note ORIGINAL EXAMINATION: BONE DENSITOMETRY 06/24/2023 12:41 pm TECHNIQUE: A bone density dual x-ray absorptiometry (DEXA) scan was performed of the lumbar spine and bilateral hips on a Hologic system. COMPARISON: None. HISTORY: ORDERING SYSTEM PROVIDED HISTORY: Reason for Exam: Osteoporosis Screening Postmenopausal FINDINGS: LEFT HIP: The bone mineral density in the total hip is measured at 0.797 g/cm2 corresponding to a T-score of -1.2. This is within the osteopenic range by WHO criteria. The bone mineral density of the femoral neck is measured at 0.610 g/cm2 corresponding to a T-score of -2.2. This is within the osteopenic range by WHO criteria. Lumbar spine: The bone mineral density of the lumbar spine, L1 through L4 is measured at 0.806 g/cm2 corresponding to a T-score of -2.2. This is within the osteopenic range by WHO criteria. 10 year fracture risk: Major osteoporotic fracture, 13%. Hip fracture, 3.1%. IMPRESSION: Osteopenia by WHO criteria. Interpreted by: Karolina Corona Preliminary Report By: Karolina Corona Electronically signed By Karolina Corona Dictated Date: 06/24/2023 1:44:31 PM Prelim Date: 06/24/2023 1:46:27 PM Sign Date: 06/24/2023 1:46:27 PM Ordering Provider: KRZYSZTOF MOORE [facility] 03-08-2023 Note HNO ID: [id number] Author: RT Ben(R) Service: ? Author Type: Technologist Type: Progress Notes Filed: 03/08/2023 2:51 PM Note Text: Radiology Service Progress Note PATIENT NAME: Staci Woo DATE OF SERVICE: March 08, 2023 TIME: 2:51 PM PATIENT IDENTITY VERIFICATION COMPLETED USING TWO (2) IDENTIFIERS: Name and Date of confirmed by patient verbally. FALL SCREENING: Has the patient had 2 falls in the last year or 1 fall with injury or currently using an Ambulatory Assistive Device (Walker, Cane, Wheelchair, Crutches, etc.)? No PATIENT GENDER DATA: Female. status: : No status: NO. PATIENT RELEVANT IMPLANT DATA REVIEWED: Not Applicable RADIOLOGY DEPARTMENT: Mammography PERIPHERAL IV DATA: Not applicable SIGNED BY: RT Ben(R) March 08, 2023 2:51 PM [facility] 03-08-2023 History of Presen t illness Narrative Radiology Service Progress Note PATIENT NAME: Staci Woo DATE OF SERVICE: March 08, 2023 TIME: 2:51 PM PATIENT IDENTITY VERIFICATION COMPLETED USING TWO (2) IDENTIFIERS: Name and Date of confirmed by patient verbally. FALL SCREENING: Has the patient had 2 falls in the last year or 1 fall with injury or currently using an Ambulatory Assistive Device (Walker, Cane, Wheelchair, Crutches, etc.)? No PATIENT GENDER DATA: Female. status: : No status: NO. PATIENT RELEVANT IMPLANT DATA REVIEWED: Not Applicable RADIOLOGY DEPARTMENT: Mammography PERIPHERAL IV DATA: Not applicable SIGNED BY: RT Ben(R) March 08, 2023 2:51 PM documented in this encounter [facility] 09-21-2022 Note HNO ID: [id number] Author: Krzysztof Mcdonald MD Service: ? Author Type: Physician Type: Progress Notes Filed: 09/21/2022 6:07 PM Note Text: FOLLOW UP VISIT - ENDOSCOPY NAME: Staci Huerta [facility] NO.: [id number] DATE OF SERVICE: 09/21/2022 : 1950 REFERRING PHYSICIAN: MARY KAY Schrader, HEATING AND BLENDING SUPERVISOR Staci is a patient I am following for gastroesophageal reflux. The patient is a 71 year old female referred for endoscopy. Staci notes worsening epigastric complaints and reflux symptoms. Patient has a history of gastroesophageal reflux and heartburn issues. I performed upper endoscopy on March 14, 2018 which demonstrated gastritis and a small hiatal hernia and distal esophagitis. The patient had been doing well on PPIs for some time. For the past few months she has noted her symptoms have worsened. She notes pain in the epigastrium and pain in her chest which is somewhat fleeting. Patient is currently seeing cardiology. She had an echocardiogram which is unremarkable and has a stress test scheduled for early next week. Interestingly, her symptoms had somewhat improved when she stopped taking proton pump inhibitors. The patient is being seen by me at the request of MARY KAY Schrader, HEATING AND BLENDING SUPERVISOR for my opinion and advice regarding worsening in reflux symptoms/epigastric pain felt to be noncardiac. I performed upper endoscopy on September 14, 2022. The patient was found to have: Impression: - Normal examined jejunum. Biopsied. - Normal examined duodenum. - Gastritis. Biopsied. - Multiple gastric polyps. Biopsied. - Small hiatal hernia. - Normal lower third of esophagus. Biopsied. - Normal middle third of esophagus. Biopsied. Pathology demonstrated: A. Jejunum, biopsy: -Small intestinal mucosa with no diagnostic alteration -No evidence of celiac disease B. Antrum, biopsy: -Antral mucosa with no diagnostic alteration -No morphologic evidence of Helicobacter pylori C. Fundus, biopsy: -Fundic gland polyp D. GE junction, biopsy: -Squamo-gastric junctional mucosa with reactive epithelial changes -Negative for intestinal metaplasia E. Mid esophagus, biopsy: -Squamous mucosa with no diagnostic alteration -No prominence of intraepithelial eosinophils The patient notes no complaints since the procedure. Upon further clarification of her stopping the proton pump inhibitors, she had 1 episode of relatively severe pain which has not happened since and she is uncertain what was the cause of that. She noted that she gets bronchitis and normally does not have issues with that but on 1 of these recent events when she had bronchitis she was coughing up or vomiting up mucus for 2 weeks after this event this did not seem to be affected by the proton pump inhibitors but she has not had that problem before or since. VITALS: Last menstrual period 04/29/2006. On examination, the abdomen is benign. Assessment IMPRESSION: Mild reflux esophagitis mild gastritis PLAN: If the patient notes any problems or changes in bowel function, the patient should contact me immediately. Otherwise I recommend follow up endoscopy as needed. I recommend she continue proton pump inhibitors. If she does start having recurring symptoms on the proton pump inhibitors then I would consider manometry and pH studies.. Diagnoses: (K21.9) Gastroesophageal reflux disease without esophagitis (primary encounter diagnosis) Return to Clinic: The patient is instructed to follow-up with me as needed. Krzysztof Mcdonald MD [facility] 09-21-2022 History of Presen t illness Narrative FOLLOW UP VISIT - ENDOSCOPY NAME: Staci Huerta [facility] NO.: [id number] DATE OF SERVICE: 09/21/2022 : 1950 REFERRING PHYSICIAN: Krzysztof Moore, MARY KAY, HEATING AND BLENDING SUPERVISOR Staci is a patient I am following for gastroesophageal reflux. The patient is a 71 year old female referred for endoscopy. Staci notes worsening epigastric complaints and reflux symptoms. Patient has a history of gastroesophageal reflux and heartburn issues. I performed upper endoscopy on March 14, 2018 which demonstrated gastritis and a small hiatal hernia and distal esophagitis. The patient had been doing well on PPIs for some time. For the past few months she has noted her symptoms have worsened. She notes pain in the epigastrium and pain in her chest which is somewhat fleeting. Patient is currently seeing cardiology. She had an echocardiogram which is unremarkable and has a stress test scheduled for early next week. Interestingly, her symptoms had somewhat improved when she stopped taking proton pump inhibitors. The patient is being seen by me at the request of Krzysztof Moore, MARY KAY, HEATING AND BLENDING SUPERVISOR for my opinion and advice regarding worsening in reflux symptoms/epigastric pain felt to be noncardiac. I performed upper endoscopy on September 14, 2022. The patient was found to have: Impression: - Normal examined jejunum. Biopsied. - Normal examined duodenum. - Gastritis. Biopsied. - Multiple gastric polyps. Biopsied. - Small hiatal hernia. - Normal lower third of esophagus. Biopsied. - Normal middle third of esophagus. Biopsied. Pathology demonstrated: A. Jejunum, biopsy: -Small intestinal mucosa with no diagnostic alteration -No evidence of celiac disease B. Antrum, biopsy: -Antral mucosa with no diagnostic alteration -No morphologic evidence of Helicobacter pylori C. Fundus, biopsy: -Fundic gland polyp D. GE junction, biopsy: -Squamo-gastric junctional mucosa with reactive epithelial changes -Negative for intestinal metaplasia E. Mid esophagus, biopsy: -Squamous mucosa with no diagnostic alteration -No prominence of intraepithelial eosinophils The patient notes no complaints since the procedure. Upon further clarification of her stopping the proton pump inhibitors, she had 1 episode of relatively severe pain which has not happened since and she is uncertain what was the cause of that. She noted that she gets bronchitis and normally does not have issues with that but on 1 of these recent events when she had bronchitis she was coughing up or vomiting up mucus for 2 weeks after this event this did not seem to be affected by the proton pump inhibitors but she has not had that problem before or since. VITALS: Last menstrual period 04/29/2006. On examination, the abdomen is benign. Assessment IMPRESSION: Mild reflux esophagitis mild gastritis PLAN: If the patient notes any problems or changes in bowel function, the patient should contact me immediately. Otherwise I recommend follow up endoscopy as needed. I recommend she continue proton pump inhibitors. If she does start having recurring symptoms on the proton pump inhibitors then I would consider manometry and pH studies.. Diagnoses: (K21.9) Gastroesophageal reflux disease without esophagitis (primary encounter diagnosis) Return to Clinic: The patient is instructed to follow-up with me as needed. Krzysztof Mcdonald MD documented in this encounter [facility] 09-14-2022 Nurse Note Pt received in PACU. Pt mildly drowsy, but arouses very easily. Denies sore throat, pain or nausea. Abd soft and non distended. Flora Montanez, RN documented in this encounter [facility] 09-14-2022 History and physical note Images from the original note were not included. HISTORY AND PHYSICAL Staci Huerta Amna 1950 REFERRING PHYSICIAN: Self CHIEF COMPLAINT: Consult (Hiatal hernia) HPI: The patient is a 71 year old female referred for endoscopy. Staci notes worsening epigastric complaints and reflux symptoms. Patient has a history of gastroesophageal reflux and heartburn issues. I performed upper endoscopy on March 14, 2018 which demonstrated gastritis and a small hiatal hernia and distal esophagitis. The patient had been doing well on PPIs for some time. For the past few months she has noted her symptoms have worsened. She notes pain in the epigastrium and pain in her chest which is somewhat fleeting. Patient is currently seeing cardiology. She had an echocardiogram which is unremarkable and has a stress test scheduled for early next week. Interestingly, her symptoms had somewhat improved when she stopped taking proton pump inhibitors. The patient is being seen by me today at the request of Krzysztof Moore, PARKER, HEATING AND BLENDING SUPERVISOR for my opinion and advice regarding worsening in reflux symptoms/epigastric pain felt to be noncardiac. PAST MEDICAL HISTORY PAST MEDICAL HISTORY Diagnosis Date Cystocele, midline 2010 Essential hypertension, benign Hiatal hernia Mitral valve disorders Personal history of colonic polyps PMH - PAST MEDICAL HISTORY OF Has Tennis elbow Right elbow Postmenopausal atrophic vaginitis RA (rheumatoid arthritis) (HCC) Symptomatic menopausal or female climacteric states PAST SURGICAL HISTORY PAST SURGICAL HISTORY Procedure Laterality Date COLONOSCOPY 2004 COLONOSCOPY FLX DX W/COLLJ SPEC WHEN PFRMD 10/21/10 Normal COLONOSCOPY FLX DX W/COLLJ SPEC WHEN PFRMD 03/19/16 normal - 10 year follow up CYSTOURETHROSCOPY 04/19 Cystoscopy for torn kidney with fall. No surg ESOPHAGOGASTRODUODENOSCOPY TRANSORAL DIAGNOSTIC 03/14/2018 EGD PAST SURGICAL HISTORY OF Right knee surgery PAST SURGICAL HISTORY OF 2007 Heart Catheterization PAST SURGICAL HISTORY OF April 2010 Scope- Tore Kidney CURRENT MEDICATIONS Current Outpatient Medications Medication Sig Lactobacillus acidophilus (PROBIOTIC ORAL) Take by mouth. SULFASALAZINE ORAL Take by mouth. Omeprazole (PRILOSEC) 40 mg capsule Take 1 capsule by mouth once daily. TURMERIC (CURCUMIN MISC) MULTIVITAMIN ORAL Take by mouth. atorvastatin (LIPITOR) 10 mg tablet VITAMIN D 50,000 unit capsule one time a week. lisinopril (ZESTRIL, PRINIVIL) 10 mg tablet meloxicam (MOBIC) 15 mg tablet (Patient not taking: No sig reported) calcium carbonate/vitamin D3 (CALCIUM+D ORAL) Take 1,200 mg by mouth once daily. (Patient not taking: Reported on 07/13/2022) FOLIC ACID ORAL Take by mouth. (Patient not taking: Reported on 07/13/2022) methotrexate 2.5 mg tablet Take by mouth one time only. (Patient not taking: No sig reported) BIOTIN ORAL Take by mouth. (Patient not taking: No sig reported) No current facility-administered medications for this visit. ALLERGIES: Contrast Dye [Other], Latex, and Zithromax [Azithromycin] PERSONAL HISTORY: SOCIAL HISTORY Social History Tobacco Use Smoking status: Former Smokeless tobacco: Never Tobacco comments: quit as a teen Vaping Use Vaping Use: Never used Substance Use Topics Alcohol use: No Drug use: No FAMILY HISTORY: FAMILY HISTORY FAMILY HISTORY Problem Relation Age of Onset None Mother Heart Father ID late in life Cancer Father MELANOMA Alzheimer's Disease Maternal Grandmother Hypertension Brother Coronary Artery Disease Other no premature Colon Cancer Other none Hypertension Brother REVIEW OF SYMPTOMS: The review of systems data was entered by the nurse and reviewed by oh Nursing Notes: Sona Devine RN 07/13/2022 2:36 PM Signed General: The patient denies fatigue, denies weight loss, denies weight gain, denies feeling hot, and denies feelings of cold. Eyes: The patient denies glaucoma, denies eye injury/surgery, wears glasses or contacts. Ear/Nose/Throat: The patient denies allergies, denies hayfever, denies ear infections, and denies bloody noses. Cardiovascular: The patient notes chest pain, denies heart disease, notes high blood pressure, notes high cholesterol, and denies poor circulation. Respiratory: The patient denies tuberculosis, denies pneumonia, denies frequent cough, denies shortness of breath, and denies coughing up blood. Gastrointestinal: The patient denies difficulty swallowing, denies acid reflux, denies ulcers, denies jaundice/hepatitis, denies gallbladder problems, denies vomiting, denies black or tarry stools, denies hemorrhoids, denies bleeding from rectum, denies diverticulitis, denies constipation, denies diarrhea, denies loss of stool control, and denies hernias. Kidney/Bladder: The patient denies kidney stones, denies urine infections, and denies bloody urine. Skin: The patient denies a history of skin cancer, denies bleeding/changing moles, and denies a history of skin rash. Neurologic: The patient denies a history of epilepsy/convulsions, notes headaches, denies head/spinal injuries, and denies stroke/TIA. Psychiatric: The patient denies psychiatric medications, denies depression, and denies voices. Endocrine: The patient denies thyroid disorders, denies diabetes, and denies hormonal problems. Hematologic: The patient denies a history of bruising, denies bleeding, and denies anemia. Infections: The patient notes a history of measles and mumps, denies rheumatic fever, and denies sexually transmitted diseases. Musculoskeletal: The patient notes back pain/injury, denies back problems, denies sciatica, denies knee/foot trouble, denies arthritis, or denies gout. When was patient's last Colonoscopy screening? 2015 When was patient's last Mammogram screening? 2021 Sona Devine RN PHYSICAL EXAMINATION: General: The patient is 71 year old female, well nourished, well hydrated in no acute distress. The patient is oriented to time, place, and person. VITALS: Blood pressure 150/90, pulse 104, temperature 36.7 C (98.1 F), height 167.6 cm (5' 6 ), weight 77.5 kg (170 lb 12.8 oz), last menstrual period 04/29/2006, SpO2 96 %. Body mass index is 27.57 kg/m . HEENT: Normal cephalic, ataumatic, pupils are equally [...] Noted RADIOLOGIC STUDIES: As Noted Assessment IMPRESSION: Story of reflux, hiatal hernia, worsening epigastric symptoms PLAN: I plan to perform upper endoscopy. [...] The patient freely consents to surgery. Diagnoses: (K21.9) Gastroesophageal reflux disease without esophagitis (primary encounter diagnosis) A letter was sent to Dr. Krzysztof Moore, PARKER, HEATING AND BLENDING SUPERVISOR indicating the above finding for this patient. Return to Clinic: The patient is instructed to follow-up with me after the testing has been completed. Krzysztof Mcdonald MD documented in this encounter [facility] 07-14-2022 History of Presen t illness Narrative HISTORY AND PHYSICAL Staci Woo 1950 REFERRING PHYSICIAN: Self CHIEF COMPLAINT: Consult (Hiatal hernia) HPI: The patient is a 71 year old female referred for endoscopy. Staci notes worsening epigastric complaints and reflux symptoms. Patient has a history of gastroesophageal reflux and heartburn issues. I performed upper endoscopy on March 14, 2018 which demonstrated gastritis and a small hiatal hernia and distal esophagitis. The patient had been doing well on PPIs for some time. For the past few months she has noted her symptoms have worsened. She notes pain in the epigastrium and pain in her chest which is somewhat fleeting. Patient is currently seeing cardiology. She had an echocardiogram which is unremarkable and has a stress test scheduled for early next week. Interestingly, her symptoms had somewhat improved when she stopped taking proton pump inhibitors. The patient is being seen by me today at the request of BRODY SchraderP, HEATING AND BLENDING SUPERVISOR for my opinion and advice regarding worsening in reflux symptoms/epigastric pain felt to be noncardiac. PAST MEDICAL HISTORY Diagnosis Date Cystocele, midline 2010 Essential hypertension, benign Hiatal hernia Mitral valve disorders Personal history of colonic polyps PMH - PAST MEDICAL HISTORY OF Has Tennis elbow Right elbow Postmenopausal atrophic vaginitis RA (rheumatoid arthritis) (HCC) Symptomatic menopausal or female climacteric states PAST SURGICAL HISTORY Procedure Laterality Date COLONOSCOPY 2004 COLONOSCOPY FLX DX W/COLLJ SPEC WHEN PFRMD 10/21/10 Normal COLONOSCOPY FLX DX W/COLLJ SPEC WHEN PFRMD 03/19/16 normal - 10 year follow up CYSTOURETHROSCOPY 04/19 Cystoscopy for torn kidney with fall. No surg ESOPHAGOGASTRODUODENOSCOPY TRANSORAL DIAGNOSTIC 03/14/2018 EGD PAST SURGICAL HISTORY OF Right knee surgery PAST SURGICAL HISTORY OF 2007 Heart Catheterization PAST SURGICAL HISTORY OF April 2010 Scope- Tore Kidney Current Outpatient Medications Medication Sig Lactobacillus acidophilus (PROBIOTIC ORAL) Take by mouth. SULFASALAZINE ORAL Take by mouth. Omeprazole (PRILOSEC) 40 mg capsule Take 1 capsule by mouth once daily. TURMERIC (CURCUMIN MISC) MULTIVITAMIN ORAL Take by mouth. atorvastatin (LIPITOR) 10 mg tablet VITAMIN D 50,000 unit capsule one time a week. lisinopril (ZESTRIL, PRINIVIL) 10 mg tablet meloxicam (MOBIC) 15 mg tablet (Patient not taking: No sig reported) calcium carbonate/vitamin D3 (CALCIUM+D ORAL) Take 1,200 mg by mouth once daily. (Patient not taking: Reported on 07/13/2022) FOLIC ACID ORAL Take by mouth. (Patient not taking: Reported on 07/13/2022) methotrexate 2.5 mg tablet Take by mouth one time only. (Patient not taking: No sig reported) BIOTIN ORAL Take by mouth. (Patient not taking: No sig reported) No current facility-administered medications for this visit. ALLERGIES: Contrast Dye [Other], Latex, and Zithromax [Azithromycin] PERSONAL HISTORY: Social History Tobacco Use Smoking status: Former Smokeless tobacco: Never Tobacco comments: quit as a teen Vaping Use Vaping Use: Never used Substance Use Topics Alcohol use: No Drug use: No FAMILY HISTORY: FAMILY HISTORY Problem Relation Age of Onset None Mother Heart Father ID late in life Cancer Father MELANOMA Alzheimer's Disease Maternal Grandmother Hypertension Brother Coronary Artery Disease Other no premature Colon Cancer Other none Hypertension Brother REVIEW OF SYMPTOMS: The review of systems data was entered by the nurse and reviewed by oh Nursing Notes: Sona Devine RN 07/13/2022 2:36 PM Signed General: The patient denies fatigue, denies weight loss, denies weight gain, denies feeling hot, and denies feelings of cold. Eyes: The patient denies glaucoma, denies eye injury/surgery, wears glasses or contacts. Ear/Nose/Throat: The patient denies allergies, denies hayfever, denies ear infections, and denies bloody noses. Cardiovascular: The patient notes chest pain, denies heart disease, notes high blood pressure, notes high cholesterol, and denies poor circulation. Respiratory: The patient denies tuberculosis, denies pneumonia, denies frequent cough, denies shortness of breath, and denies coughing up blood. Gastrointestinal: The patient denies difficulty swallowing, denies acid reflux, denies ulcers, denies jaundice/hepatitis, denies gallbladder problems, denies vomiting, denies black or tarry stools, denies hemorrhoids, denies bleeding from rectum, denies diverticulitis, denies constipation, denies diarrhea, denies loss of stool control, and denies hernias. Kidney/Bladder: The patient denies kidney stones, denies urine infections, and denies bloody urine. Skin: The patient denies a history of skin cancer, denies bleeding/changing moles, and denies a history of skin rash. Neurologic: The patient denies a history of epilepsy/convulsions, notes headaches, denies head/spinal injuries, and denies stroke/TIA. Psychiatric: The patient denies psychiatric medications, denies depression, and denies voices. Endocrine: The patient denies thyroid disorders, denies diabetes, and denies hormonal problems. Hematologic: The patient denies a history of bruising, denies bleeding, and denies anemia. Infections: The patient notes a history of measles and mumps, denies rheumatic fever, and denies sexually transmitted diseases. Musculoskeletal: The patient notes back pain/injury, denies back problems, denies sciatica, denies knee/foot trouble, denies arthritis, or denies gout. When was patient's last Colonoscopy screening? 2015 When was patient's last Mammogram screening? 2021 Sona Devine RN PHYSICAL EXAMINATION: General: The patient is 71 year old female, well nourished, well hydrated in no acute distress. The patient is oriented to time, place, and person. VITALS: Blood pressure 150/90, pulse 104, temperature 36.7 C (98.1 F), height 167.6 cm (5' 6 ), weight 77.5 kg (170 lb 12.8 oz), last menstrual period 04/29/2006, SpO2 96 %. Body mass index is 27.57 kg/m . HEENT: Normal cephalic, ataumatic, pupils are equally [...] Noted RADIOLOGIC STUDIES: As Noted Assessment IMPRESSION: Story of reflux, hiatal hernia, worsening epigastric symptoms PLAN: I plan to perform upper endoscopy. [...] The patient freely consents to surgery. Diagnoses: (K21.9) Gastroesophageal reflux disease without esophagitis (primary encounter diagnosis) A letter was sent to Dr. Krzysztof Moore, PARKER, HEATING AND BLENDING SUPERVISOR indicating the above finding for this patient. Return to Clinic: The patient is instructed to follow-up with me after the testing has been completed. Krzysztof Mcdonald MD documented in this encounter [facility] 07-13-2022 Nurse Note General: The patient denies fatigue, denies weight loss, denies weight gain, denies feeling hot, and denies feelings of cold. Eyes: The patient denies glaucoma, denies eye injury/surgery, wears glasses or contacts. Ear/Nose/Throat: The patient denies allergies, denies hayfever, denies ear infections, and denies bloody noses. Cardiovascular: The patient notes chest pain, denies heart disease, notes high blood pressure, notes high cholesterol, and denies poor circulation. Respiratory: The patient denies tuberculosis, denies pneumonia, denies frequent cough, denies shortness of breath, and denies coughing up blood. Gastrointestinal: The patient denies difficulty swallowing, denies acid reflux, denies ulcers, denies jaundice/hepatitis, denies gallbladder problems, denies vomiting, denies black or tarry stools, denies hemorrhoids, denies bleeding from rectum, denies diverticulitis, denies constipation, denies diarrhea, denies loss of stool control, and denies hernias. Kidney/Bladder: The patient denies kidney stones, denies urine infections, and denies bloody urine. Skin: The patient denies a history of skin cancer, denies bleeding/changing moles, and denies a history of skin rash. Neurologic: The patient denies a history of epilepsy/convulsions, notes headaches, denies head/spinal injuries, and denies stroke/TIA. Psychiatric: The patient denies psychiatric medications, denies depression, and denies voices. Endocrine: The patient denies thyroid disorders, denies diabetes, and denies hormonal problems. Hematologic: The patient denies a history of bruising, denies bleeding, and denies anemia. Infections: The patient notes a history of measles and mumps, denies rheumatic fever, and denies sexually transmitted diseases. Musculoskeletal: The patient notes back pain/injury, denies back problems, denies sciatica, denies knee/foot trouble, denies arthritis, or denies gout. When was patient's last Colonoscopy screening? 2015 When was patient's last Mammogram screening? 2021 Sona Devine RN documented in this encounter [facility] 02-16-2022 Miscellaneous Notes February 16, 2022 PID: [id number] Staci Woo [address] [place] [address] Dear Ms. Woo, We are pleased to inform you that the results of your recent breast imaging exam on 02/16/2022 are normal. Your mammogram demonstrates that you [...] report will be kept on file at [facility] as part of your permanent medical record and are available for your continuing care. Thank you for allowing us to help in meeting your health care needs. Sincerely, Dr. Burns Interpreting Radiologist [facility] (Normal over 40) documented in this encounter [facility] 02-16-2022 History of Presen t illness Narrative Radiology Service Progress Note PATIENT NAME: Staci Woo DATE OF SERVICE: February 16, 2022 TIME: 9:06 AM PATIENT IDENTITY VERIFICATION COMPLETED USING TWO (2) IDENTIFIERS: Name and Date of confirmed by patient verbally. FALL SCREENING: Has the patient had 2 falls in the last year or 1 fall with injury or currently using an Ambulatory Assistive Device (Walker, Cane, Wheelchair, Crutches, etc.)? No PATIENT GENDER DATA: Female. status: : No status: NO. PATIENT RELEVANT IMPLANT DATA REVIEWED: Not Applicable RADIOLOGY DEPARTMENT: Mammography PERIPHERAL IV DATA: Not applicable SIGNED BY: RT Ben(R) February 16, 2022 9:06 AM documented in this encounter [facility] Evaluation + Plan note Future Appointments Appointment Date:12/15/2023 10:00:00 AM Scheduled Provider:KRZYSZTOF MOORE APRN, CNP Location:[facility] Appointment Type:PC OV Follow Up Future Scheduled [id number] Hemoglobin 12/15/23Complete Blood Count 08/10/22Complete Blood Count 12/15/23Lipid Profile 06/18/23Lipid Profile 12/08/22Lipid Profile 12/15/23Albumin/Creatinine Ratio, Random Urine 12/15/23Microalbumin Level Urine 06/10/22Vitamin D Level 12/15/23Complete Metabolic Panel 12/15/23XR Chest 2 Views (PA & Lateral) 08/10/22MRI Spine Lumbar w/o Contrast 07/15/22MRI Spine Thoracic w/o Contrast 07/15/22 [facility] Diagnosis Gastroesophageal reflux disease without esophagitis- Primary Esophageal reflux documented in this encounter [facility] note* Diagnosis Gastroesophageal reflux disease without esophagitis- Primary Esophageal reflux documented in this encounter [facility] course Narrative No data available for this section [facility] Hospital Discharge instructions No data available for this section [facility] Progress note No data available for this section [facility] Reason for referral (narrative)* Outpatient Procedure (Routine) - Authorized Specialty Diagnoses / Procedures Referred By Alessandro saeed Referred To Contact [facility] Diagnoses Gastroesophageal reflux disease without esophagitis Procedures EGD DIAGNOSTIC ESOPHAGOGASTRODUODENOSC OPY TRANSORAL DIAGNOSTIC Krzysztof Mcdonald MD [address] [place] [address] [facility] [address] [place] [address] Referral ID Status Reason Start Date Expiration Date Visits Requested Visits Authorized [id number] Authorized Auto-Generat ed Referral 07/13/2022 07/13/2023 1 1 [facility] for referral (narrative)* Outpatient Procedure (Routine) - Closed Specialty Diagnoses / Procedures Referred By Alessandro saeed Referred To Contact [facility] Diagnoses Gastroesophageal reflux disease without esophagitis Procedures EGD DIAGNOSTIC ESOPHAGOGASTRODUODENOSC OPY TRANSORAL DIAGNOSTIC Krzysztof Mcdonald MD [address] [place] [address] [address] Referral ID Status Reason Start Date Expiration Date V isits Requested Visits Authorized [id number] Closed Auto-Generate d Referral 07/13/2022 07/13/2023 1 1 [facility] for visit Narrative* Outpatient Procedure (Routine) - Closed Specialty Diagnoses / Procedures Referred By Alessandro saeed Referred To Contact [facility] Diagnoses Gastroesophageal reflux disease without esophagitis Procedures EGD DIAGNOSTIC ESOPHAGOGASTRODUODENOSC OPY TRANSORAL DIAGNOSTIC Krzysztof Mcdonald MD [address] [place] [address] [address] Referral ID Status Reason Start Date Expiration Date V isits Requested Visits Authorized [id number] Closed Auto-Generate d Referral 07/13/2022 07/13/2023 1 1 [facility] Summary Purpose Family History No Family History Records Found No data available for this section No Family History Records Found Advance Directives No Advanced Directives Records FoundDocuments on File Type Date Recorded Patient Used Car Renovator Expl anation Advance Directive(s) 03/14/2018 10:01 AM Advance Directive(s) 03/19/2016 6:17 AM Advance Directive(s) 03/11/2016 2:47 PM Medications Administered Section Inactive Administered Medications - up to 3 most recent administrations Medication Order MAR Action Action Date Dose Rate Site benzocaine 20% 1 Mobile (TOPEX) 1 Mobile, TOPICAL, DIRECTED, Starting on Tue09/14/22 at 1300, Until Tue09/14/22 at 165, DOSING DIRECTED BY PHYSICIAN FOR PROCEDURAL SEDATION ONLY - Pharmaceutical Waste: Aerosol -, Intraprocedure Given by LIP 09/14/2022 12:55 PM EST 3 Sprays fentaNYL 50 mcg/mL 25-100 mcg injection (SUBLIMAZE) 25-100 mcg, INTRAVENOUS, DIRECTED, Starting on Tue09/14/22 at 1300, Until Tue09/14/22 at 165, DOSING DIRECTED BY PHYSICIAN FOR PROCEDURAL SEDATION ONLY, Intraprocedure Given by LIP 09/14/2022 12:58 PM EST 25 mcg Additional Source Comments INFORMATION SOURCE (unrecogn ized section and content) DATE CREATED AUTHOR AUTHOR'S ANGELINA ATION 08/20/2023 [facility] Source Comments (unrecognize d section and content) In the event this informatio n is protected by the Federal Confidentiality of Alcohol and Drug Abuse Patient Records regulations: The Federal rules restrict any use of the information to criminally investigate or prosecute any alcohol or drug abuse patient.[facility] the event this information is protected by the Federal Confidentiality of Alcohol and Drug Abuse Patient Records regulations: The Federal rules restrict any use of the information to criminally investigate or prosecute any alcohol or drug abuse patient.[facility] the event this information is protected by the Federal Confidentiality of Alcohol and Drug Abuse Patient Records regulations: The Federal rules restrict any use of the information to criminally investigate or prosecute any alcohol or drug abuse patient.[facility] the event this information is protected by the Federal Confidentiality of Alcohol and Drug Abuse Patient Records regulations: The Federal rules restrict any use of the information to criminally investigate or prosecute any alcohol or drug abuse patient.[facility] the event this information is protected by the Federal Confidentiality of Alcohol and Drug Abuse Patient Records regulations: The Federal rules restrict any use of the information to criminally investigate or prosecute any alcohol or drug abuse patient.[facility] the event this information is protected by the Federal Confidentiality of Alcohol and Drug Abuse Patient Records regulations: The Federal rules restrict any use of the information to criminally investigate or prosecute any alcohol or drug abuse patient.[facility] Care Teams (unrecognized sec tion and content) Physically Impaired Teacher Relationship Specialty Start Date End Date [place], Krzysztof D, HEATING AND BLENDING SUPERVISOR [address] [place] [address] PCP - General Family Practice 02/26/16 Physically Impaired Teacher Relationship Specialty Start Date End Date Krzysztof Moore, HEATING AND BLENDING SUPERVISOR [address] [place] [address] PCP - General Family Medicine 02/26/16 Physically Impaired Teacher Relationship Specialty Start Date End Date Krzysztof Moore, HEATING AND BLENDING SUPERVISOR [address] [place] [address] PCP - General Family Medicine 02/26/16 Physically Impaired Teacher Relationship Specialty Start Date End Date Krzysztof Moore, HEATING AND BLENDING SUPERVISOR [address] [place] [address] PCP - General Family Medicine 02/26/16 Physically Impaired Teacher Relationship Specialty Start Date End Date Krzysztof Moore, HEATING AND BLENDING SUPERVISOR [facility] [place] [address] PCP - General Family Medicine 02/26/16 Reason for Visit (unrecogniz ed section and content) Reason Comments Follow Up EGD FOR RECORDS PERTAINING TO PATIENTS WHO ARE OR HAVE BEEN ENROLLED IN A CHEMICAL DEPENDENCY/SUBSTANCEABUSE PROGRAM, SOME INFORMATION MAY BE OMITTED. This clinical summary was aggregated from multiple sources. Caution should be exercised in using it in the provision of clinical care. This summary normalizes information from multiple sources, and as a consequence, information in this document may materially change the coding, format and clinical context of patient data. In addition, data may be omitted in some cases. CLINICAL DECISIONS SHOULD BE BASED ON THE PRIMARY CLINICAL RECORDS. [employer] provides no warranty or guarantee of the accuracy or completeness of information in this document.
[2023-11-28 12:34] LABS: Absolute Lymphocyte Count 1.71 X10^3/uL (0.83-4.51); Absolute Neutrophil Count 2.8 X10^3/uL (2.0-7.7); Basophil# 0.03 X10^3/uL; Basophil% 0.6 % (0-1); Eosinophils% 1.9 % (0-5); Hematocrit 38.7 % (37-47); Hemoglobin 12.7 g/dL (12.0-15.0); Lymphocyte # 1.71 X10^3/ul (0.83-4.51); Lymphocyte % 32.9 % (19-41); Mean Corp Hgb Conc 32.8 g/dL (32-36); Mean Corpuscular Hgb 28.9 pg (27.0-32.0); Mean Corpuscular Volume 88.2 fL (81-99); Mean Platelet Vol. 9.4 fl (6.2-12.0); Monocyte# 0.56 X10^3/uL; Monocyte% 10.8 % (0-10); NRBC Flagged by Analyzer 0 % (0-5); Neutrophil # 2.79 X10^3/uL (2.7-7.7); Neutrophil % 53.6 % (47-70); Platelet Count 222 K/mm3 (150-450); RBC Distribution Width CV 12.4 % (11.6-14.6); RBC Distribution Width SD 40.3 fl (35.1-43.9); Red Blood Count 4.39 M/mm3 (4.2-5.4); White Blood Count 5.2 K/mm3 (4.4-11.0)
[2023-11-28 12:36] LABS: ALB/GLOB Ratio 1.1 RATIO (0.9-2.4); AST(SGOT) 21 U/L (15-37); Alanine Aminotransfer ALT/SGPT 23 U/L (13-56); Albumin, Serum 3.9 g/dL (3.2-5.0); Alkaline Phosphatase 91 U/L (45-117); Anion Gap 2 (5-15); BUN 17 mg/dL (7-18); BUN/Creat Ratio 18.7 RATIO (10-20); Calcium,Total 9.3 mg/dL (8.5-10.1); Chloride 107 mmol/L (98-107); Creatinine, Serum 0.91 mg/dL (0.55-1.02); EST Glomerular Filtration Rate 65 mL/min (>60); Est Glom Filt Rate - Afr Amer 78 mL/min (>60); Globulin 3.5 g/dL (2.2-4.2); Glucose 113 mg/dL (74-106); Potassium 4.6 mmol/L (3.5-5.1); Protein, Total 7.4 g/dL (6.4-8.2); Sodium Level 139 mmol/L (136-145)
== END | disposition home or self-care (01) ==
PROVIDERS: PCP Nurse Practitioner Family; Referring Provider Internal Medicine Rheumatology; Visit Provider Internal Medicine Rheumatology
DX: M06.4 Inflammatory polyarthropathy (principal); M79.7 Fibromyalgia; Z79.899 Other long term (current) drug therapy
CPT/HCPCS: 36415; 80053; 85025

== ENCOUNTER → 2023-12-09 | Outpatient (CLI) | payer MEDICARE, SELFPAY ==
--- OUTSIDE RECORDS SUMMARY | 2023-12-09 07:34 | XMS RPT_ITS | CCD ---
Author Name Unknown Address [address] [facility] [address] [place] [id number] Organization [facility] Care Team Providers Care 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 Name Role Phone KRZYSZTOF MOORE Unavailable Unavailable KRZYSZTOF MOORE Unavailable Unavailable KRZYSZTOF MOORE Unavailable Unavailable KRZYSZTOF MOORE Unavailable Unavailable KRZYSZTOF MOORE Unavailable Unavailable KRZYSZTOF MOORE Unavailable Unavailable BARBARA FAIR Unavailable Unavailable KRZYSZTOF MOORE Unavailable Unavailable Krzysztof Moore CNP Primary Care Provider Krzysztof Moore CNP Primary Care Provider Krzysztof Moore CNP Primary Care Provider [facility] [employer]ANCE OFFICER - KRZYSZTOF CAMEJO Primary Care Phys ician GUERDA KU Attending Unavailable KRZYSZTOF MOORE Primary Care Unavailable KRZYSZTOF MCDONALD Attending Unavailable KRZYSZTOF MOORE Primary Care Unavailable KRZYSZTOF MOORE Referring Unavailable KRZYSZTOF MOORE Primary Care Unavailable Allergies Allergy Classification Reported Allergen(s) Allergy Type Date of Onset Reaction(s) Facility (9 sources) Azithromycin; Translations: [azithromycin] Drug Allergy 6 GI Upset [facility] Work Phone: (9 sources) Latex; Translations: [LATEX] Drug Allergy 6 Other: See Comments, Ulcer of mouth (disorder) [facility] (7 sources) Contrast Dye [Other] Propensity to adverse reactions 0 Hives [facility] (1 source) Contrast media; Translations: [iodinated radiocontrast agents] Drug allergy Itching (finding) [facility] (1 source) OTHER; Translations: [OTHER] Propensity to adverse reactions (disorder) 0 [facility] Repository Medications Current Medications Medication Drug Class(es) Dates Sig (Normalized) Sig (Original) calcium carbonate 1500 mg oral tablet (1 source) Start: 06-04-2019 calcium (as carbonate) 600 mg oral tablet Dose : 600 mg = 1 tab(s), Oral, BIDM, 0 Refill(s) Start Date: 06/04/19 Status: Ordered carvedilol 12.5 mg oral tablet (2 sources) alpha-Adrenergic Opal, beta-Adrenergic Opal Start: 06-16-2023 carvedilol 12.5 mg oral tablet Dose : 12.5 mg = 1 tab(s), Oral, BID, # 60 tab(s), 0 Refill(s) Start Date: 06/16/23 Status: Ordered Completed/Discontinued Medications Medication Drug Class(es) Dates Sig (Normalized) Sig (Original) atorvastatin 10 mg oral tablet (8 sources) HMG-CoA Reductase Inhibitor Start: 08-30-2016 End: 12-13-2023 take 1 tablet by mouth once daily atorvastatin (LIPITOR) 10 mg tablet Take 10 mg by mouth once daily. 0 08/30/2016 Active Problems Active Problems Problem Classification Problem Date Documented Date Episodic/Chronic Asthma (8 sources) Asthma; Translations: [Unspecified asthma, uncomplicated] Onset: 09-01-2010 10-05-2021 Chronic Diabetes mellitus without complication (1 source) Impaired fasting glycemia 12-16-2022 Episodic Disorders of lipid metabolism (3 sources) Hyperlipidemia, unspecified; Translations: [Hyperlipidemia] Onset: 11-28-2017 06-04-2019 Chronic Esophageal disorders (4 sources) Gastroesophageal reflux disease without esophagitis; Translations: [Gastro-esophageal reflux disease without esophagitis] Chronic Essential hypertension (3 sources) Essential (primary) hypertension; Translations: [Hypertensive disorder] Onset: 11-28-2017 06-04-2019 Chronic Genitourinary symptoms and ill-defined conditions (1 source) H/O: kidney disease 06-04-2019 Episodic Menopausal disorders (14 sources) Atrophic vaginitis; Translations: [Postmenopausal atrophic vaginitis] Onset: 08-09-2011 08-09-2011 Chronic Nutritional deficiencies (3 sources) Vitamin D deficiency, unspecified; Translations: [Vitamin D deficiency] Onset: 11-28-2017 06-04-2019 Chronic Osteoarthritis (1 source) Osteoarthritis of multiple joints 06-04-2019 Chronic Other acquired deformities (1 source) 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 Past or Other Problems Problem Classification Problem Date Documented Da te Episodic/Chronic Crushing injury or internal injury (7 sources) Laceration of kidney; Translations: [Laceration of unspecified kidney, unspecified degree, initial encounter] Onset: 09-01-2010 10-05-2021 Episodic Other and unspecified benign neoplasm (7 sources) Polyp of colon; Translations: [Polyp of colon] Onset: 09-01-2010 10-05-2021 Episodic Other and unspecified benign neoplasm (7 sources) History of polyp of colon; Translations: [Personal history of colonic polyps] Onset: 10-21-2010 10-21-2010 Episodic Spondylosis; intervertebral disc disorders; other back problems (2 sources) Low back pain; Translations: [Low back pain] Onset: 05-23-2018 Episodic Results Test Name Value Interpretation Reference Range Facil ity Vital Signs Date Time Vital Sign Value Performing Clinician Faci lity 09-21-2022 15:17-0500 Body temperature 97.9 [degF] Krzysztof Mcdonald MD Work Phone: [facility] 09-21-2022 15:17-0500 Diastolic blood pressure 80 mm[Hg] Krzysztof Mcdonald MD Work Phone: [facility] 09-21-2022 15:17-0500 Heart rate 102 /min Krzysztof Mcdonald MD Work Phone: [facility] 09-21-2022 15:17-0500 SaO2% (BldA) [Mass fraction] 95 % Krzysztof Mcdonald MD Work Phone: [facility] 09-21-2022 15:17-0500 Systolic blood pressure 130 mm[Hg] Krzysztof Mcdonald MD Work Phone: [facility] 09-14-2022 13:35-0500 Diastolic blood pressure 75 mm[Hg] Krzysztof Mcdonald MD Work Phone: [facility] 09-14-2022 13:35-0500 Heart rate 84 /min Krzysztof Mcdonald MD Work Phone: [facility] 09-14-2022 13:35-0500 Respiratory rate 16 /min Krzysztof Mcdonald MD Work Phone: [facility] 09-14-2022 13:35-0500 SaO2% (BldA) [Mass fraction] 94 % Krzysztof Mcdonald MD Work Phone: [facility] 09-14-2022 13:35-0500 Systolic blood pressure 140 mm[Hg] Krzysztof Mcdonald MD Work Phone: [facility] 09-14-2022 12:17-0500 Body temperature 97.39 [degF] Krzysztof Mcdonald MD Work Phone: [facility] 09-14-2022 12:17-0500 Body weight 77.5 kg Krzysztof Mcdonald MD Work Phone: [facility] 07-13-2022 14:33-0400 Body height 167.6 cm Krzysztof Mcdonald MD Work Phone: [facility] 07-13-2022 14:33-0400 Body temperature 98.1 [degF] Krzysztof Mcdonald MD Work Phone: [facility] 07-13-2022 14:33-0400 Body weight 77.47 kg Krzysztof Mcdonald MD Work Phone: [facility] 07-13-2022 14:33-0400 Diastolic blood pressure 90 mm[Hg] Krzysztof Mcdonald MD Work Phone: [facility] 07-13-2022 14:33-0400 Heart rate 104 /min Krzysztof Mcdonald MD Work Phone: [facility] 07-13-2022 14:33-0400 SaO2% (BldA) [Mass fraction] 96 % Krzysztof Mcdonald MD Work Phone: [facility] 07-13-2022 14:33-0400 Systolic blood pressure 150 mm[Hg] Krzysztof Mcdonald MD Work Phone: [facility] Encounters Encounter Date Encounter Type Care Provider Facility Start: 11-30-2023 Telephone encounter Guerda Wa llace MD Work Phone: [facility] Procedures Date Procedure Procedure Detail Performing Clinician Start: 03-08-2023 Screening digital breast tomosynthesis bi [facility] Provider Start: 09-14-2022 Level iv surg pathology gross&microscopic exam Krzysztof Mcdonald MD Work Phone: Start: 09-14-2022 Esophagogastroduodenoscopy transoral diagnostic Krzysztof Mcdonald MD Work Phone: Start: 02-16-2022 Mammography Screen Wstr Start: 03-14-2018 Esophagogastroduodenoscopy KRZYSZTOF FRIEDMAN AMBULANCE OFFICER [employer] Start: 12-21-2017 Bone density scan KRZYSZTOF GONZALEZPKINS AMBULANCE OFFICER [employer] Start: 03-19-2016 Colonoscopy Screen Wstr Start: 07-04-2009 Lipid 1996 panel - Serum or Plasma Scree n Wstr Start: 08-04-2006 Cardiovascular stress testing KRZYSZTOF YANEZ AMBULANCE OFFICER [employer] Start: 08-04-2006 Exercise stress test - endocrine KRZYSZTOF GONZALEZPKINS AMBULANCE OFFICER [employer] Plan of Treatment Date Care Activity Detail Author Start: 02-09-2032 Urine microalbumin profile DTaP,Tdap,Td Vaccine (3 - Td or Tdap) [facility] Start: 03-19-2026 Colonoscopy COLONOSCOPY [facility] Start: 03-19-2026 COLORECTAL CANCER SCREENING COLORECTAL CANCER SCREENING [facility] Start: 03-19-2026 Screening for malignant neoplasm of colon [facility] Start: 03-08-2024 Mammography Mammogram Screening [facility] Start: 03-08-2024 Screening for malignant neoplasm of breast Mammogram Screening [facility] Start: 10-10-2023 Advance Directive Discussion Advance Directive Discussion [facility] Start: 10-10-2023 Depression Assessment Depression Assessment [facility] Start: 06-10-2023 Covid-19 Vaccine () Covid-19 Vaccine () [facility] Start: 06-10-2023 Influenza vaccination Influenza Vaccine (#1) [facility] Start: 02-16-2023 Mammography MAMMOGRAM [facility] Start: 10-10-2022 Advance Directive Discussion Advance Directive Discussion [facility] Start: 10-10-2022 Depression Assessment Depression Assessment [facility] Start: 06-10-2022 Influenza vaccination INFLUENZA (#1) [facility] Start: 01-22-2022 Mammography MAMMOGRAM [facility] Start: 10-10-2021 ADVANCE DIRECTIVE DISCUSSION ADVANCE DIRECTIVE DISCUSSION [facility] Start: 10-10-2021 DEPRESSION ASSESSMENT DEPRESSION ASSESSMENT [facility] Start: 10-01-2021 COVID-19 VACCINE (4 - Booster for Moderna series) COVID-19 VACCINE (4 - Booster for Moderna series) [facility] Start: 08-27-2021 COVID-19 VACCINE (4 - Booster for Moderna series) COVID-19 VACCINE (4 - Booster for Moderna series) [facility] Start: 2015 PNEUMOVAX AGE 65 AND OVER WITH 5YR LOOKBACK (#1) PNEUMOVAX AGE 65 AND OVER WITH 5YR LOOKBACK (#1) [facility] Start: 03-22-2015 DIABETES SCREEN DIABETES SCREEN [facility] Start: 03-22-2015 Diabetes Screening Diabetes Screening [facility] Start: 07-04-2014 Lipid 1996 panel - Serum or Plasma Lipid Screening [facility] Start: 07-04-2014 Lipid panel Lipid Screening [facility] Start: 07-04-2014 LIPID SCREEN LIPID SCREEN [facility] Start: 2010 RSV Vaccine (1 - 1-dose 60+ series) RSV Vaccine (1 - 1-dose 60+ series) [facility] Start: 2000 SHINGRIX VACCINE (1 of 2) SHINGRIX VACCINE (1 of 2) [facility] Start: 1995 COLOGUARD (FIT-DNA) COLOGUARD (FIT-DNA) [facility] Start: [address] COLONOGRAPHY [facility] Start: 1995 FECAL OCCULT BLOOD FECAL OCCULT BLOOD [facility] Start: 1995 Screening for malignant neoplasm of colon [facility] Start: 1995 SIGMOIDOSCOPY SIGMOIDOSCOPY [facility] Start: 1969 SHINGRIX VACCINE (1 of 2) SHINGRIX VACCINE (1 of 2) [facility] Start: 1969 Urine microalbumin profile DTAP,TDAP,TD (1 - Tdap) [facility] Start: 1968 ANNUAL PCP TEAM CHRONIC DISEASE VISIT ANNUAL PCP TEAM CHRONIC DISEASE VISIT [facility] Start: 1968 HEPATITIS C SCREENING HEPATITIS C SCREENING [facility] Start: 1968 Hepatitis C screening Hepatitis C Screening [facility] Start: 1968 SPIROMETRY SPIROMETRY [facility] Start: 1962 Adult depression screening assessment DEPRESSION SCREENING [facility] Start: 1956 PNEUMOCOCCAL: 65+ (1 - PCV) PNEUMOCOCCAL: 65+ (1 - PCV) [facility] End: 07-13-2023 EGD DIAGNOSTIC EGD DIAGNOSTIC Endoscopy Routine Gastroesophageal reflux disease without esophagitis 1 Occurrences starting 07/13/2022 until 07/13/2023 [facility] Work Phone: Immunizations Immunization Date Immunization Notes Care Provider Fa kvng 08-14-2022 influenza virus vaccine, unspecified formulation KRZYSZTOF MOORE AMBULANCE OFFICER - ASSEMBLER GOLD FRAME [facility] 05-12-2022 zoster vaccine recombinant KRZYSZTOF MOORE AMBULANCE OFFICER - ASSEMBLER GOLD FRAME [facility] 02-08-2022 tetanus toxoid, redu deborah diphtheria toxoid, and acellular pertussis vaccine, adsorbed KRZYSZTOF MOORE AMBULANCE OFFICER - ASSEMBLER GOLD FRAME [facility] 02-08-2022 zoster vaccine recombinant KRZYSZTOF MOORE AMBULANCE OFFICER - ASSEMBLER GOLD FRAME [facility] 07-24-2021 influenza virus vaccine, unspecified formulation KRZYSZTOF MOORE AMBULANCE OFFICER - ASSEMBLER GOLD FRAME [facility] 07-02-2021 SARS-CoV-2 (COVID-19 ) mRNA-1273 vaccine KRZYSZTOF MOORE AMBULANCE OFFICER - ASSEMBLER GOLD FRAME [facility] 02-04-2021 SARS-CoV-2 (COVID-19 ) mRNA-1273 vaccine KRZYSZTFO MOORE AMBULANCE OFFICER - ASSEMBLER GOLD FRAME [facility] Payers Date Payer Category Payer Unknown [employer] O [id number] 2018-Present [phone] [address] [place] [address] O [id number] 2018 Unknown [id number] 2017 Unknown [id number] 1950 Unknown [id number] 1950 Unknown [id number] 1950 Unknown [id number] 1950 Unknown [id number] Social History Date Type Detail Facility Start: [facility]14-[facility]22 [facility] Start: 02-10-2021 End: 11-29-2023 Alcohol intake Current non-drinker of alcohol (finding) [facility] Start: 1950 Sex Assigned At Not on file C [facility] Start: 02-06-2022 End: 07-13-2022 Exposure to SARS-CoV-2 (event) Not sure [facility] History of tobacco use Current smoker [facility] Start: 09-14-2022 Tobacco use and exposure Smoke less tobacco non-user [facility] Start: 09-14-2022 Tobacco Comment quit as a teen [facility] Start: 06-04-2019 Tobacco smoking status Never s moked tobacco (finding) [facility] Clinical Notes 02-16-2022 to 11-30-2023 Telephone Encounter - Nell Allen - 11/30/2023 2:33 PM ESTTelephone Encounter - Jennifer Ventura - 11/30/2023 1:39 PM Marcy Lancaster RT(R) - 03/08/2023 3:00 PM EDTLaboratoryRadiology Note Date & Type Note Facility 11-30-2023 Miscellaneous Notes Patient called back to schedule surgery, she accepted 01/31/24 surgery date at , scheduled pre & post op appts and informed pt teaching appt will not appear on MyChart 1st attempt to contact the patient to schedule surgery. Called patient and lvm to call back can offer 01/30 at documented in this encounter [facility] 11-29-2023 Note HNO ID: [id number] Author: GUERDA KU MD Service: ? Author Type: Physician Type: Progress Notes Filed: 12/08/2023 08:36 Note Text: Female Pelvic Medicine AND Reconstructive Surgery Follow-Up Staci Woo is a 73 year old female who presents for a follow-up of pelvic organ prolapse (cystocele, rectocele, uterine prolapse). ----- LAST VISIT: 02/10/2021 w/ Dr. Danielle Coffey Impression: Staci Woo is a 70 year old female with pelvic organ prolapse, no significant change since last exam. Plan: -POP diagnosis and management discussed using diagrams. Reviewed options- expectant management, PT, pessary, surgery. -Proceed with expectant management ----- HISTORY SINCE LAST VISIT: Prolapse is down further, now out past the opening of the vagina. Has not done anything about this so far. Endorses dryness and irritation. Had constipation in the past, went on probiotics which helped.On sulfasalazine. Lives at home w/ . Has stairs in the home. All previous pap smear normal. Patient is very active. Prior Workup: None Prior Treatment: No procedures on bladder, uterus. Many years ago had kidney laceration--healed on its own. Hx of hernias. *Duration: Worsened since 2020 Context: Prolapse has become more uncomfortable. Modifying Factors: Urinary incontinence when bladder is full and during bronchitis infections once a year w/ persistent cough. UROGYNECOLOGIC REVIEW OF SYSTEMS: Vaginal bulge: denies Daily Fluids: Coffee, Caffeine: 1 cup of coffee in AM Water: 3-4 bottles/day Other: Soda once per month Frequency: can hold her urine for a couple of hours Nocturia: once per night Urinary urgency: none Urge incontinence: When bladder is very full Stress incontinence: Very rarely. Worse when coughing for a prolonged period of time. Pads: denies Pain/Discomfort: denies Voiding symptoms: +sensation of incomplete emptying, denies hesitancy, changes in stream or splinting to urinate Urinary tract infections or Pyelonephritis: denies Stones: denies Hematuria: denies Malignancy or pediatric voiding dysfunction: denies Abnormal vaginal bleeding: denies Abnormal vaginal discharge: denies Vaginal dryness: denies Bowel symptoms: BM regularly, denies constipation, diarrhea, fecal incontinence, fecal urgency, stool trapping symptoms, splinting to have a BM, blood in stool, Last colonoscopy: Two in the past. Up to date, normal. Sexual activity: No, d/t prolapse. Prior to prolapse no problems. OTHER RELATED REVIEW OF SYSTEMS: Neurologic: denies numbness, cognitive dysfunction, spinal injury, neuropathic pain Constitutional: denies weight loss, fever, generalized weakness Endocrine: denies hot flashes Psychiatric: denies anxiety, depression Urinary Incontinence: yes, sometimes if bladder is full and she has to sneeze Voiding Dysfunction: no Urinary Frequency: no Urinary Urgency: no Prolapse Symptoms: yes, Defecatory Dysfunction: no Fecal Incontinence: no Abnormal Bleeding: no Pain: no Abnormal Vaginal Discharge: no I have confirmed and edited as necessary, the PFSH and ROS obtained by others. Guerda Ku MD Immigration Attorney offered: Patient declines. OBJECTIVE: BP 168/83 Ht 167.6 cm (5' 6 ) Wt 83.3 kg (183 lb 10.3 oz) LMP 04/29/2006 BMI 29.64 kg/m? General: Well appearing, alert, in no acute distress, well-hydrated, well nourished. Abdomen: Abdomen soft, non-tender Pelvic: Ext. Genitalia: No lesions or other abnormalities Vagina: Mild atrophic epithelium POP-Q: Prolapse Noted: Yes, Stage 3 Aa = +3.0 Ba = +4.0 C = +3.0 gh = 4.0 pb = 3.0 tvl = 8.0 Ap = 0 Bp = 0 D = -4.0 Cervix: Normal Urethra: Normal, Supine cough stress test negative Bimanual: Normal size anteverted uterus, No tenderness, No masses Rectovaginal: No tenderness, No masses, Rectocele Rectal Squeeze Strength: +1, Sphincter Defect: Slight anterior sphincter defect. Levator Ani Contraction: 3+ Levator Ani Tone: normal Levator Ani Tenderness: No Saddle Sensory Exam (S2-4): normal UA results: N/A Bladder scan: N/A IMPRESSION: Staci Woo is a 73 year old (2xNSVD) female with Pelvic Organ Prolapse `1. Pelvic Organ Prolapse (POP) Counseled pt that she has Stage 3 uterovaginal prolapse. We discussed observation, pessary (whose results depend on the extent of the prolapse as well as the vaginal opening/genital hiatus), pelvic floor muscle training (PFMT) (to help halt the process, will not reverse pelvic organ descensus) and surgical repair (Vaginal approach vs. Robotic sacrocolpopexy). Discussed need to avoi (more content not included)... [facility] 08-19-2023 Note HNO ID: [id number] Author: Krzysztof Mcdonald MD Service: ? Author Type: Physician Type: Progress Notes Filed: 08/19/2023 2:44 PM Note Text: FOLLOW UP VISIT - ENDOSCOPY NAME: Staci Woo [facility] NO.: [id number] DATE OF SERVICE: August 18, 2023 : 1950 REFERRING PHYSICIAN: MARY KAY Schrader CNP Staci is a patient I am following [...] at the request of MARY KAY Schrader, ASSEMBLER GOLD FRAME for my opinion and advice regarding worsening [...] instructed to follow-up with me as needed. Krzyszotf Mcdonald MD [facility] 06-24-2023 Note ORIGINAL EXAMINATION: BONE DENSITOMETRY [...] Date: 06/24/2023 1:46:27 PM Ordering Provider: KRZYSZTOF KEDAR [facility] 03-08-2023 Note HNO ID: [id number] Author: RT Ben(Berna) Service: ? Author Type: Technologist Type: Progress [...] RT Ben(R) March 08, 2023 2:51 PM [facility] 03-08-2023 History of Presen t illness [...] IV DATA: Not applicable SIGNED BY: RT Ben(Berna) March 08, 2023 2:51 PM documented in this encounter [facility] 09-21-2022 History of Presen t illness Narrative FOLLOW UP VISIT - ENDOSCOPY NAME: Staci Woo CLINIC NO.: [id number] DATE OF SERVICE: 09/21/2022 : 1950 REFERRING PHYSICIAN: MARY KAY Schrader CNP Staci is a patient I am following [...] at the request of MARY KAY Schrader, ASSEMBLER GOLD FRAME for my opinion and advice regarding worsening [...] Krzysztof Mcdonald MD documented in this encounter [facility] 09-14-2022 Nurse Note Pt received in PACU. Pt mildly drowsy, but arouses very easily. Denies sore throat, pain or nausea. Abd soft and non distended. Flora Montanez, RN documented in this encounter [facility] 09-14-2022 History and physical note Images from the original note were not included. HISTORY AND PHYSICAL Staci Woo 1950 REFERRING [...] today at the request of Krzysztof Moore, SENIOR DATA WAREHOUSE ARCHITECT, ASSEMBLER GOLD FRAME for my opinion and advice regarding worsening [...] Age of Onset None Mother Heart Father [place] late in life Cancer Father MELANOMA Alzheimer's Disease Maternal Grandmother Hypertension Brother Coronary Artery Disease Other no premature Colon Cancer Other none Hypertension Brother REVIEW OF SYMPTOMS: The review of systems data was entered by the nurse and reviewed by nd Nursing Notes: Sona Devine RN 07/13/2022 2:36 [...] encounter diagnosis) A letter was sent to MARY KAY Leija, ASSEMBLER GOLD FRAME indicating the above finding for this patient. Return to Clinic: The patient is instructed to follow-up with me after the testing has been completed. Krzysztof Mcdonald MD documented in this encounter [facility] 07-14-2022 History of Presen t illness Narrative [...] today at the request of MARY KAY Schrader, BASHIR for my opinion and advice regarding worsening [...] Age of Onset None Mother Heart Father [place] late in life Cancer Father MELANOMA Alzheimer's Disease Maternal Grandmother Hypertension Brother Coronary Artery Disease Other no premature Colon Cancer Other none Hypertension Brother REVIEW OF SYMPTOMS: The review of systems data was entered by the nurse and reviewed by nd Nursing Notes: Sona Devine RN 07/13/2022 2:36 [...] letter was sent to Dr. Krzysztof Moore, SENIOR DATA WAREHOUSE ARCHITECT, ASSEMBLER GOLD FRAME indicating the above finding for this patient. Return to Clinic: The patient is instructed to follow-up with me after the testing has been completed. Krzysztof Mcdonald MD documented in this encounter [facility] [facility] 07[facility] Nurse Note General: The patient denies [...] Sona Devine RN documented in this encounter [facility] 02-16-2022 Miscellaneous Notes February 16, 2022 PID: [id number] Staci Woo [address] [place] [address] Dear Ms. Woo, We are pleased to [...] report will be kept on file at [facility] as part of your permanent medical record and are available for your continuing care. Thank you for allowing us to help in meeting your health care needs. Sincerely, Dr. Burns Interpreting Radiologist [facility] (Normal over 40) documented in this encounter [facility] 02-16-2022 History of Presen t illness Narrative [...] 2022 9:06 AM documented in this encounter [facility] Evaluation + Plan note Future Appointments Appointment Date:12/15/2023 10:00:00 AM Scheduled Provider:KRZYSZTOF MOORE APRN, CNP Location:[facility] Appointment Type:PC OV Follow Up Future Scheduled [id number] Hemoglobin 12/15/23Complete Blood Count 08/10/22Complete Blood Count 12/15/23Lipid Profile 06/18/23Lipid Profile 12/08/22Lipid Profile 12/15/23Albumin/Creatinine Ratio, Random Urine 12/15/23Microalbumin Level Urine 06/10/22Vitamin D Level 12/15/23Complete Metabolic Panel 12/15/23XR Chest 2 Views (PA & Lateral) 08/10/22MRI Spine Lumbar w/o Contrast 07/15/22MRI Spine Thoracic w/o Contrast 07/15/22 [facility] documented in this encounter [facility] note* Diagnosis Gastroesophageal reflux disease without esophagitis- Primary Esophageal reflux documented in this encounter [facility] note* Diagnosis Gastroesophageal reflux disease without esophagitis- Primary Esophageal reflux [facility] N[facility] No data available for this section [facility] Discharge instructions No data available for this section [facility] Progress note No data available for this section [facility] Reason for referral (narrative)* Outpatient Procedure (Routine) - Authorized Specialty Diagnoses / Procedures Referred By Alessandro saeed Referred To Contact [facility] Diagnoses Gastroesophageal reflux disease without esophagitis Procedures EGD DIAGNOSTIC ESOPHAGOGASTRODUODENOSC OPY TRANSORAL DIAGNOSTIC Krzysztof Mcdonald MD [address] [place] [address] [facility] [place] [address] [place] [id number] Referral ID Status Reason Start Date Expiration Date Visits Requested Visits Authorized [id number] Authorized Auto-Generat ed Referral 07/13/2022 07/13/2023 1 1 [facility] for referral (narrative)* Outpatient Procedure (Routine) - Closed Specialty Diagnoses / Procedures Referred By Alessandro saeed Referred To Contact [facility] Diagnoses Gastroesophageal reflux disease without esophagitis Procedures EGD DIAGNOSTIC ESOPHAGOGASTRODUODENOSC OPY TRANSORAL DIAGNOSTIC Krzysztof Mcdonald MD [address] [place] [address] [address] Referral ID Status Reason Start Date Expiration Date V isits Requested Visits Authorized [id number] Closed Auto-Generate d Referral 07/13/2022 07/13/2023 1 1 [facility] for visit Narrative* Outpatient Procedure (Routine) - Closed Specialty Diagnoses / Procedures Referred By Alessandro saeed Referred To Contact [facility] Diagnoses Gastroesophageal reflux disease without esophagitis Procedures EGD DIAGNOSTIC ESOPHAGOGASTRODUODENOSC OPY TRANSORAL DIAGNOSTIC Krzysztof Mcdonald MD [address] [place] [address] [address] Referral ID Status Reason Start Date Expiration Date V isits Requested Visits Authorized [id number] Closed Auto-Generate d Referral 07/13/2022 07/13/2023 1 1 [facility] Summary Purpose Family History No Family History Records Found No data available for this section No Family History Records Found Advance Directives No Advanced Directives Records FoundDocuments on File Type Date Recorded 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 Advance Directive(s) 03/14/2018 10:01 AM Advance Directive(s) 03/19/2016 6:17 AM Advance Directive(s) 03/11/2016 2:47 PM Medications Administered Section Inactive Administered Medications - up to 3 most recent administrations Medication Order MAR Action Action Date Dose Rate Site benzocaine 20% 1 [place] (TOPEX) 1 [place], TOPICAL, DIRECTED, Starting on Tue09/14/22 at 1300, Until Tue09/14/22 at 1659, DOSING DIRECTED BY PHYSICIAN FOR PROCEDURAL SEDATION ONLY - Pharmaceutical Waste: Aerosol -, Intraprocedure Given by LIP 09/14/2022 12:55 PM EST 3 Sprays fentaNYL 50 mcg/mL 25-100 mcg injection (SUBLIMAZE) 25-100 mcg, INTRAVENOUS, DIRECTED, Starting on Tue09/14/22 at 1300, Until Tue09/14/22 at 1659, DOSING DIRECTED BY PHYSICIAN FOR PROCEDURAL SEDATION ONLY, Intraprocedure Given by LIP 09/14/2022 12:58 PM EST 25 mcg Additional Source Comments INFORMATION SOURCE (unrecogn ized section and content) DATE CREATED AUTHOR AUTHOR'S ORGANIZ ATION 12/08/2023 [facility] Source Comments (unrecognize d section and content) In the event this informatio n is protected by the Federal Confidentiality of Alcohol and Drug Abuse Patient Records regulations: The Federal rules restrict any use of the information to criminally investigate or prosecute any alcohol or drug abuse patient.[facility] the event this information is protected by the Federal Confidentiality of Alcohol and Drug Abuse Patient Records regulations: The Federal rules restrict any use of the information to criminally investigate or prosecute any alcohol or drug abuse patient.[facility] the event this information is protected by the Federal Confidentiality of Alcohol and Drug Abuse Patient Records regulations: The Federal rules restrict any use of the information to criminally investigate or prosecute any alcohol or drug abuse patient.[facility] the event this information is protected by the Federal Confidentiality of Alcohol and Drug Abuse Patient Records regulations: The Federal rules restrict any use of the information to criminally investigate or prosecute any alcohol or drug abuse patient.[facility] the event this information is protected by the Federal Confidentiality of Alcohol and Drug Abuse Patient Records regulations: The Federal rules restrict any use of the information to criminally investigate or prosecute any alcohol or drug abuse patient.[facility] the event this information is protected by the Federal Confidentiality of Alcohol and Drug Abuse Patient Records regulations: The Federal rules restrict any use of the information to criminally investigate or prosecute any alcohol or drug abuse patient.[facility] the event this information is protected by the Federal Confidentiality of Alcohol and Drug Abuse Patient Records regulations: The Federal rules restrict any use of the information to criminally investigate or prosecute any alcohol or drug abuse patient.[facility] Teams (unrecognized sec tion and content) 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 Start Date End Date Krzysztof Moore, ASSEMBLER [employer] [address] [place] [address] PCP - General Family Practice 02/26/16 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 Start Date End Date Krzysztof Moore, ASSEMBLER [employer] [address] [place] [address] PCP - General Family Medicine 02/26/16 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 Start Date End Date Krzysztof Moore, ASSEMBLER [employer] [address] [place] [address] PCP - General Family Medicine 02/26/16 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 Start Date End Date Krzysztof Moore, ASSEMBLER [employer]AME [address] [place] [id number] PCP - General Family Medicine 02/26/16 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 [facility]. provides no warranty or guarantee of the accuracy or completeness of information in this document.
[2023-12-09 10:03] LABS: Hematocrit 40.5 % (37-47); Hemoglobin 13.3 g/dL (12.0-15.0); Mean Corp Hgb Conc 32.8 g/dL (32-36); Mean Corpuscular Hgb 29.2 pg (27.0-32.0); Mean Corpuscular Volume 88.8 fL (81-99); Mean Platelet Vol. 9.6 fl (6.2-12.0); Platelet Count 224 K/mm3 (150-450); RBC Distribution Width CV 12.7 % (11.6-14.6); RBC Distribution Width SD 41.1 fl (35.1-43.9); Red Blood Count 4.56 M/mm3 (4.2-5.4); White Blood Count 5.2 K/mm3 (4.4-11.0)
[2023-12-09 10:23] LABS: Hemoglobin A1c 5.6 % (3.8-5.6)
[2023-12-09 10:31] LABS: ALB/GLOB Ratio 1.1 RATIO (0.9-2.4); AST(SGOT) 20 U/L (15-37); Alanine Aminotransfer ALT/SGPT 29 U/L (13-56); Alkaline Phosphatase 95 U/L (45-117); Anion Gap 4 (5-15); BUN 12 mg/dL (7-18); BUN/Creat Ratio 14.2 RATIO (10-20); Calcium,Total 9.2 mg/dL (8.5-10.1); Chloride 105 mmol/L (98-107); Cholesterol 197 mg/dL (200); Creatinine, Serum 0.85 mg/dL (0.55-1.02); EST Glomerular Filtration Rate 70 mL/min (>60); Est Glom Filt Rate - Afr Amer 85 mL/min (>60); Globulin 3.6 g/dL (2.2-4.2); Glucose 111 mg/dL (74-106); High Density Lipoprotein 54 mg/dL; Protein, Total 7.6 g/dL (6.4-8.2); Sodium Level 140 mmol/L (136-145); Triglycerides 133 mg/dL; Very Low Density Lipoprotein 27 mg/dL (5-40)
[2023-12-09 14:41] LABS: Vitamin D,25 Hydroxy 85.5 ng/mL
== END | disposition home or self-care (01) ==
LOC: MTLAB 07:15
PROVIDERS: PCP Nurse Practitioner Family; Referring Provider Nurse Practitioner Family; Visit Provider Nurse Practitioner Family
DX: I10 Essential (primary) hypertension (principal); M06.9 Rheumatoid arthritis, unspecified; R73.01 Impaired fasting glucose; E78.5 Hyperlipidemia, unspecified; E55.9 Vitamin D deficiency, unspecified; J45.998 Other asthma
CPT/HCPCS: 36415; 80053; 80061; 82043; 82306; 82570; 83036; 85027

== ENCOUNTER → 2024-03-01 | Outpatient (CLI) | payer MEDICARE, SELFPAY ==
[2024-03-01 10:01] LABS: Absolute Lymphocyte Count 1.49 X10^3/uL (0.83-4.51); Absolute Neutrophil Count 2.7 X10^3/uL (2.0-7.7); Basophil# 0.04 X10^3/uL; Basophil% 0.8 % (0-1); Eosinophil# 0.12 X10^3/uL; Eosinophils% 2.4 % (0-5); Hemoglobin 12.4 g/dL (12.0-15.0); Lymphocyte # 1.49 X10^3/ul (0.83-4.51); Lymphocyte % 30.4 % (19-41); Mean Corp Hgb Conc 32.6 g/dL (32-36); Mean Corpuscular Hgb 28.8 pg (27.0-32.0); Mean Corpuscular Volume 88.2 fL (81-99); Mean Platelet Vol. 9.6 fl (6.2-12.0); Monocyte# 0.57 X10^3/uL; Monocyte% 11.6 % (0-10); NRBC Flagged by Analyzer 0 % (0-5); Neutrophil # 2.67 X10^3/uL (2.7-7.7); Neutrophil % 54.6 % (47-70); Platelet Count 238 K/mm3 (150-450); RBC Distribution Width CV 12.5 % (11.6-14.6); RBC Distribution Width SD 40.8 fl (35.1-43.9); Red Blood Count 4.31 M/mm3 (4.2-5.4); White Blood Count 4.9 K/mm3 (4.4-11.0)
[2024-03-01 10:54] LABS: ALB/GLOB Ratio 1.1 RATIO (0.9-2.4); AST(SGOT) 20 U/L (15-37); Alanine Aminotransfer ALT/SGPT 26 U/L (13-56); Albumin, Serum 3.8 g/dL (3.2-5.0); Alkaline Phosphatase 93 U/L (45-117); Anion Gap 6 (5-15); BUN 17 mg/dL (7-18); BUN/Creat Ratio 19.7 RATIO (10-20); Calcium,Total 9.1 mg/dL (8.5-10.1); Chloride 106 mmol/L (98-107); Creatinine, Serum 0.86 mg/dL (0.55-1.02); EST Glomerular Filtration Rate 68 mL/min (>60); Est Glom Filt Rate - Afr Amer 83 mL/min (>60); Globulin 3.4 g/dL (2.2-4.2); Glucose 115 mg/dL (74-106); Potassium 4.2 mmol/L (3.5-5.1); Protein, Total 7.2 g/dL (6.4-8.2); Sodium Level 139 mmol/L (136-145)
== END | disposition home or self-care (01) ==
PROVIDERS: PCP Nurse Practitioner Family; Referring Provider Internal Medicine Rheumatology; Visit Provider Internal Medicine Rheumatology
DX: M06.4 Inflammatory polyarthropathy (principal); Z79.899 Other long term (current) drug therapy; M79.7 Fibromyalgia
CPT/HCPCS: 36415; 80053; 85025

== ENCOUNTER → 2024-05-29 | Outpatient (CLI) | payer MEDICARE, SELFPAY ==
[2024-05-29 10:38] LABS: Absolute Lymphocyte Count 1.68 X10^3/uL (0.83-4.51); Absolute Neutrophil Count 2.6 X10^3/uL (2.0-7.7); Basophil# 0.02 X10^3/uL; Basophil% 0.4 % (0-1); Eosinophil# 0.12 X10^3/uL; Eosinophils% 2.5 % (0-5); Hematocrit 40.9 % (37-47); Hemoglobin 13.4 g/dL (12.0-15.0); Lymphocyte # 1.68 X10^3/ul (0.83-4.51); Lymphocyte % 34.7 % (19-41); Mean Corp Hgb Conc 32.8 g/dL (32-36); Mean Corpuscular Hgb 28.5 pg (27.0-32.0); Mean Corpuscular Volume 86.8 fL (81-99); Mean Platelet Vol. 9.9 fl (6.2-12.0); Monocyte# 0.46 X10^3/uL; Monocyte% 9.5 % (0-10); NRBC Flagged by Analyzer 0 % (0-5); Neutrophil # 2.56 X10^3/uL (2.7-7.7); Neutrophil % 52.9 % (47-70); Platelet Count 215 K/mm3 (150-450); RBC Distribution Width CV 12.6 % (11.6-14.6); Red Blood Count 4.71 M/mm3 (4.2-5.4); White Blood Count 4.8 K/mm3 (4.4-11.0)
[2024-05-29 10:50] LABS: Vitamin D,25 Hydroxy 90.4 ng/mL
[2024-05-29 10:55] LABS: AST(SGOT) 22 U/L (15-37); Alanine Aminotransfer ALT/SGPT 27 U/L (13-56); Albumin, Serum 3.7 g/dL (3.2-5.0); Alkaline Phosphatase 97 U/L (45-117); Anion Gap 4 (5-15); BUN 14 mg/dL (7-18); BUN/Creat Ratio 17.1 RATIO (10-20); Calcium,Total 9.5 mg/dL (8.5-10.1); Chloride 107 mmol/L (98-107); Cholesterol 216 mg/dL (200); Creatinine, Serum 0.82 mg/dL (0.55-1.02); EST Glomerular Filtration Rate 73 mL/min (>60); Est Glom Filt Rate - Afr Amer 88 mL/min (>60); Globulin 3.6 g/dL (2.2-4.2); Glucose 113 mg/dL (74-106); High Density Lipoprotein 48 mg/dL; Potassium 4.2 mmol/L (3.5-5.1); Protein, Total 7.3 g/dL (6.4-8.2); Sodium Level 140 mmol/L (136-145); Triglycerides 139 mg/dL; Very Low Density Lipoprotein 28 mg/dL (5-40)
[2024-05-29 11:27] LABS: Microalbumin,Random Urine 8.6 mg/L (NO RANGE EST.); Microalbumin:Creatinine Ratio 14.6 mg/g CRE (<30 mg/g CRE)
== END | disposition home or self-care (01) ==
LOC: MTLAB 07:23
PROVIDERS: PCP Nurse Practitioner Family; Referring Provider Nurse Practitioner Family; Visit Provider Nurse Practitioner Family
DX: I10 Essential (primary) hypertension (principal); R73.01 Impaired fasting glucose; E78.5 Hyperlipidemia, unspecified; E55.9 Vitamin D deficiency, unspecified
CPT/HCPCS: 36415; 80053; 80061; 82043; 82306; 82570; 85025

== ENCOUNTER → 2024-08-20 | Outpatient (CLI) | payer MEDICARE, SELFPAY ==
[2024-08-20 12:23] LABS: Absolute Lymphocyte Count 1.77 X10^3/uL (0.83-4.51); Absolute Neutrophil Count 3.1 X10^3/uL (2.0-7.7); Basophil# 0.03 X10^3/uL; Basophil% 0.5 % (0-1); Eosinophil# 0.13 X10^3/uL; Eosinophils% 2.3 % (0-5); Hematocrit 38.7 % (37-47); Hemoglobin 12.5 g/dL (12.0-15.0); Lymphocyte # 1.77 X10^3/ul (0.83-4.51); Lymphocyte % 31.3 % (19-41); Mean Corp Hgb Conc 32.3 g/dL (32-36); Mean Corpuscular Hgb 28.5 pg (27.0-32.0); Mean Corpuscular Volume 88.2 fL (81-99); Mean Platelet Vol. 9.4 fl (6.2-12.0); Monocyte# 0.57 X10^3/uL; Monocyte% 10.1 % (0-10); NRBC Flagged by Analyzer 0 % (0-5); Neutrophil # 3.14 X10^3/uL (2.7-7.7); Neutrophil % 55.6 % (47-70); Platelet Count 232 K/mm3 (150-450); RBC Distribution Width CV 12.5 % (11.6-14.6); RBC Distribution Width SD 40.1 fl (35.1-43.9); Red Blood Count 4.39 M/mm3 (4.2-5.4); White Blood Count 5.7 K/mm3 (4.4-11.0)
[2024-08-20 13:14] LABS: ALB/GLOB Ratio 1.1 RATIO (0.9-2.4); AST(SGOT) 22 U/L (15-37); Alanine Aminotransfer ALT/SGPT 24 U/L (13-56); Albumin, Serum 3.9 g/dL (3.2-5.0); Alkaline Phosphatase 96 U/L (45-117); Anion Gap 7 (5-15); BUN 15 mg/dL (7-18); BUN/Creat Ratio 18.1 RATIO (10-20); Calcium,Total 9.4 mg/dL (8.5-10.1); Chloride 103 mmol/L (98-107); Creatinine, Serum 0.83 mg/dL (0.55-1.02); EST Glomerular Filtration Rate 71 mL/min (>60); Est Glom Filt Rate - Afr Amer 86 mL/min (>60); Globulin 3.4 g/dL (2.2-4.2); Glucose 105 mg/dL (74-106); Protein, Total 7.3 g/dL (6.4-8.2); Sodium Level 138 mmol/L (136-145)
== END | disposition home or self-care (01) ==
PROVIDERS: PCP Nurse Practitioner Family; Referring Provider Internal Medicine Rheumatology; Visit Provider Internal Medicine Rheumatology
DX: M06.4 Inflammatory polyarthropathy (principal); M79.7 Fibromyalgia; Z79.899 Other long term (current) drug therapy
CPT/HCPCS: 36415; 80053; 85025

== ENCOUNTER → 2024-11-12 | Outpatient (CLI) | payer MEDICARE, SELFPAY ==
[2024-11-12 12:18] LABS: Absolute Lymphocyte Count 1.93 X10^3/uL (0.83-4.51); Absolute Neutrophil Count 2.3 X10^3/uL (2.0-7.7); Basophil# 0.02 X10^3/uL; Basophil% 0.4 % (0-1); Eosinophil# 0.13 X10^3/uL; Eosinophils% 2.6 % (0-5); Hematocrit 38.9 % (37-47); Hemoglobin 12.6 g/dL (12.0-15.0); Lymphocyte # 1.93 X10^3/ul (0.83-4.51); Lymphocyte % 39.1 % (19-41); Mean Corp Hgb Conc 32.4 g/dL (32-36); Mean Corpuscular Hgb 28.3 pg (27.0-32.0); Mean Corpuscular Volume 87.2 fL (81-99); Mean Platelet Vol. 9.4 fl (6.2-12.0); Monocyte% 10.1 % (0-10); NRBC Flagged by Analyzer 0 % (0-5); Neutrophil # 2.32 X10^3/uL (2.7-7.7); Platelet Count 238 K/mm3 (150-450); RBC Distribution Width CV 12.4 % (11.6-14.6); RBC Distribution Width SD 39.6 fl (35.1-43.9); Red Blood Count 4.46 M/mm3 (4.2-5.4); White Blood Count 4.9 K/mm3 (4.4-11.0)
[2024-11-12 12:32] LABS: ALB/GLOB Ratio 1.1 RATIO (0.9-2.4); AST(SGOT) 17 U/L (15-37); Alanine Aminotransfer ALT/SGPT 23 U/L (13-56); Albumin, Serum 3.8 g/dL (3.2-5.0); Alkaline Phosphatase 97 U/L (45-117); Anion Gap 3 (5-15); BUN 13 mg/dL (7-18); BUN/Creat Ratio 16.9 RATIO (10-20); Calcium,Total 9.1 mg/dL (8.5-10.1); Chloride 104 mmol/L (98-107); Creatinine, Serum 0.77 mg/dL (0.55-1.02); EST Glomerular Filtration Rate 78 mL/min (>60); Est Glom Filt Rate - Afr Amer 94 mL/min (>60); Globulin 3.5 g/dL (2.2-4.2); Glucose 116 mg/dL (74-106); Potassium 4.1 mmol/L (3.5-5.1); Protein, Total 7.3 g/dL (6.4-8.2); Sodium Level 138 mmol/L (136-145)
== END | disposition home or self-care (01) ==
LOC: MTLAB 10:51
PROVIDERS: PCP Nurse Practitioner Family; Referring Provider Internal Medicine Rheumatology; Visit Provider Internal Medicine Rheumatology
DX: M06.4 Inflammatory polyarthropathy (principal); M79.7 Fibromyalgia; Z79.899 Other long term (current) drug therapy
CPT/HCPCS: 36415; 80053; 85025

== ENCOUNTER → 2024-12-06 | Outpatient (CLI) | payer MEDICARE, SELFPAY ==
[2024-12-06 11:27] LABS: Vitamin D,25 Hydroxy 69.9 ng/mL (30-100)
[2024-12-06 11:36] LABS: Hemoglobin A1c 5.5 % (<=5.6)
[2024-12-06 12:43] LABS: Cholesterol 229 mg/dL (<=200); High Density Lipoprotein 52 mg/dL; Low Density Lipoprotein Calc. 153 mg/dL; Triglycerides 121 mg/dL; Very Low Density Lipoprotein 24 mg/dL (5-40); cholesterol:hdl ratio screen 4.41
[2024-12-06 16:13] LABS: Microalbumin,Random Urine < 12.0 mg/L (NO RANGE EST.)
== END | disposition home or self-care (01) ==
LOC: MTLAB 07:45
PROVIDERS: PCP Nurse Practitioner Family; Referring Provider Nurse Practitioner Family; Visit Provider Nurse Practitioner Family
DX: I10 Essential (primary) hypertension (principal); R73.01 Impaired fasting glucose; E55.9 Vitamin D deficiency, unspecified; E78.5 Hyperlipidemia, unspecified
CPT/HCPCS: 36415; 80061; 82043; 82306; 82570; 83036

== ENCOUNTER → 2025-02-04 | Outpatient (CLI) | payer MEDICARE, SELFPAY ==
[2025-02-04 13:29] LABS: Absolute Lymphocyte Count 1.72 X10^3/uL (0.83-4.51); Absolute Neutrophil Count 2.5 X10^3/uL (2.0-7.7); Basophil# 0.02 X10^3/uL; Basophil% 0.4 % (0-1); Hematocrit 37.8 % (37-47); Hemoglobin 12.5 g/dL (12.0-15.0); Lymphocyte # 1.72 X10^3/ul (0.83-4.51); Lymphocyte % 35.2 % (19-41); Mean Corp Hgb Conc 33.1 g/dL (32-36); Mean Corpuscular Hgb 29.3 pg (27.0-32.0); Mean Corpuscular Volume 88.5 fL (81-99); Mean Platelet Vol. 10.3 fl (6.2-12.0); Monocyte# 0.52 X10^3/uL; Monocyte% 10.6 % (0-10); NRBC Flagged by Analyzer 0 % (0-5); Neutrophil # 2.51 X10^3/uL (2.7-7.7); Neutrophil % 51.4 % (47-70); Platelet Count 211 K/mm3 (150-450); RBC Distribution Width CV 12.5 % (11.6-14.6); RBC Distribution Width SD 40.6 fl (35.1-43.9); Red Blood Count 4.27 M/mm3 (4.2-5.4); White Blood Count 4.9 K/mm3 (4.4-11.0)
[2025-02-04 15:01] LABS: ALB/GLOB Ratio 1.7 RATIO (0.9-2.4); AST(SGOT) 27 U/L (<=31); Alanine Aminotransfer ALT/SGPT 24 U/L (<=34); Albumin, Serum 4.4 g/dL (3.4-4.8); Alkaline Phosphatase 98 U/L (35-104); Anion Gap 10 (5-15); BUN 19 mg/dL (4-19); BUN/Creat Ratio 22.8 RATIO (10-20); Calcium,Total 9.3 mg/dL (7.6-11.0); Chloride 104 mmol/L (98-108); Creatinine, Serum 0.81 mg/dL (0.70-1.20); EST Glomerular Filtration Rate 76 (>60); Globulin 2.6 g/dL (2.2-4.2); Glucose 114 mg/dL (70-99); Potassium 4.6 mmol/L (3.3-5.1); Sodium Level 139 mmol/L (133-145); Total Bilirubin 0.52 mg/dL (0.00-1.30)
== END | disposition home or self-care (01) ==
LOC: MTLAB 09:39
PROVIDERS: PCP Nurse Practitioner Family; Referring Provider Internal Medicine Rheumatology; Visit Provider Internal Medicine Rheumatology
DX: M06.4 Inflammatory polyarthropathy (principal); M79.7 Fibromyalgia; Z79.899 Other long term (current) drug therapy
CPT/HCPCS: 36415; 80053; 85025

== ENCOUNTER → 2025-04-29 | Outpatient (CLI) | payer MEDICARE, SELFPAY ==
[2025-04-29 10:42] LABS: Hematocrit 40.7 % (37-47); Hemoglobin 13.6 g/dL (12.0-15.0); Immature Granulocytes Count 0.020 X10^3/uL (0.0-0.0); Mean Corp Hgb Conc 33.4 g/dL (32-36); Mean Corpuscular Volume 88.7 fL (81-99); Mean Platelet Vol. 9.9 fl (6.2-12.0); NRBC Flagged by Analyzer 0 % (0-5); Platelet Count 227 K/mm3 (150-450); RBC Distribution Width CV 12.5 % (11.6-14.6); RBC Distribution Width SD 40.3 fl (35.1-43.9); Red Blood Count 4.59 M/mm3 (4.2-5.4); White Blood Count 5.2 K/mm3 (4.4-11.0)
[2025-04-29 11:47] LABS: AST(SGOT) 25 U/L (<=31); Alanine Aminotransfer ALT/SGPT 22 U/L (<=34); Albumin, Serum 4.6 g/dL (3.4-4.8); Alkaline Phosphatase 103 U/L (35-104); Anion Gap 10 (5-15); BUN 12 mg/dL (4-19); BUN/Creat Ratio 13.5 RATIO (10-20); Calcium,Total 9.5 mg/dL (7.6-11.0); Carbon Dioxide 28.2 mmol/L (21.0-32.0); Chloride 102 mmol/L (98-108); Globulin 2.7 g/dL (2.2-4.2); Glucose 121 mg/dL (70-99); Potassium 4.1 mmol/L (3.3-5.1)
== END | disposition home or self-care (01) ==
LOC: MTLAB 08:18
PROVIDERS: PCP Nurse Practitioner Family; Referring Provider Internal Medicine Rheumatology; Visit Provider Internal Medicine Rheumatology
DX: M06.4 Inflammatory polyarthropathy (principal); M79.7 Fibromyalgia; Z79.899 Other long term (current) drug therapy
CPT/HCPCS: 36415; 80053; 85025

== ENCOUNTER → 2025-06-05 | Outpatient (CLI) | payer MEDICARE, SELFPAY ==
[2025-06-05 13:07] LABS: AST(SGOT) 23 U/L (<=31); Alanine Aminotransfer ALT/SGPT 20 U/L (<=34); Albumin, Serum 4.4 g/dL (3.4-4.8); Alkaline Phosphatase 101 U/L (35-104); Anion Gap 10 (5-15); BUN 12 mg/dL (4-19); BUN/Creat Ratio 16.8 RATIO (10-20); Calcium,Total 9.6 mg/dL (7.6-11.0); Carbon Dioxide 27.7 mmol/L (21.0-32.0); Chloride 104 mmol/L (98-108); Cholesterol 174 mg/dL (<=200); Globulin 2.8 g/dL (2.2-4.2); Glucose 112 mg/dL (70-99); Low Density Lipoprotein Calc. 100 mg/dL; Potassium 4.1 mmol/L (3.3-5.1); Triglycerides 154 mg/dL; Very Low Density Lipoprotein 31 mg/dL (5-40); Vitamin D,25 Hydroxy 63.9 ng/mL (30-100); cholesterol:hdl ratio screen 3.99
[2025-06-05 13:12] LABS: Hematocrit 38.9 % (37-47); Hemoglobin 13.1 g/dL (12.0-15.0); Mean Corp Hgb Conc 33.7 g/dL (32-36); Mean Corpuscular Volume 86.6 fL (81-99); Mean Platelet Vol. 10.0 fl (6.2-12.0); Platelet Count 230 K/mm3 (150-450); RBC Distribution Width CV 12.1 % (11.6-14.6); RBC Distribution Width SD 38.5 fl (35.1-43.9); Red Blood Count 4.49 M/mm3 (4.2-5.4); White Blood Count 6.4 K/mm3 (4.4-11.0)
[2025-06-05 14:57] LABS: Creatinine, Urine (random) 108.00 mg/dL (28.00-217.00)
[2025-06-05 14:58] LABS: Microalbumin,Random Urine < 12.0 mg/L (<20 mg/L)
== END | disposition home or self-care (01) ==
LOC: MTLAB 09:21
PROVIDERS: PCP Nurse Practitioner Family; Referring Provider Nurse Practitioner Family; Visit Provider Nurse Practitioner Family
DX: R73.01 Impaired fasting glucose (principal); M06.9 Rheumatoid arthritis, unspecified; E78.5 Hyperlipidemia, unspecified; I10 Essential (primary) hypertension; E55.9 Vitamin D deficiency, unspecified
CPT/HCPCS: 36415; 80053; 80061; 82043; 82306; 82570; 83036; 85027

== ENCOUNTER → 2025-07-23 | Outpatient (CLI) | payer MEDICARE, SELFPAY ==
[2025-07-23 12:43] LABS: Hematocrit 38.8 % (37-47); Hemoglobin 12.9 g/dL (12.0-15.0); Immature Granulocytes Count 0.010 X10^3/uL (0.0-0.0); Mean Corp Hgb Conc 33.2 g/dL (32-36); Mean Corpuscular Volume 86.8 fL (81-99); Mean Platelet Vol. 10.0 fl (6.2-12.0); NRBC Flagged by Analyzer 0 % (0-5); Platelet Count 230 K/mm3 (150-450); RBC Distribution Width CV 12.3 % (11.6-14.6); RBC Distribution Width SD 39.1 fl (35.1-43.9); Red Blood Count 4.47 M/mm3 (4.2-5.4); White Blood Count 5.7 K/mm3 (4.4-11.0)
[2025-07-23 13:08] LABS: AST(SGOT) 25 U/L (<=31); Alanine Aminotransfer ALT/SGPT 23 U/L (<=34); Albumin, Serum 4.4 g/dL (3.4-4.8); Alkaline Phosphatase 101 U/L (35-104); Anion Gap 9 (5-15); BUN 14 mg/dL (4-19); BUN/Creat Ratio 18.7 RATIO (10-20); Calcium,Total 9.3 mg/dL (7.6-11.0); Carbon Dioxide 27.7 mmol/L (21.0-32.0); Chloride 104 mmol/L (98-108); Globulin 2.6 g/dL (2.2-4.2); Glucose 107 mg/dL (70-99); Potassium 4.4 mmol/L (3.3-5.1)
== END | disposition home or self-care (01) ==
LOC: MTLAB 09:31
PROVIDERS: PCP Nurse Practitioner Family; Referring Provider Internal Medicine Rheumatology; Visit Provider Internal Medicine Rheumatology
DX: M06.4 Inflammatory polyarthropathy (principal); M79.7 Fibromyalgia; Z79.899 Other long term (current) drug therapy
CPT/HCPCS: 36415; 80053; 85025